=== PATIENT | female | born 1940 | race Caucasian/White ===

== ENCOUNTER 2022-07-02 10:45 | Emergency (ER) | payer MEDICARE, BC, SELFPAY ==
[2022-07-02 10:49] VITALS: BP 155/84; PULSE 64; RESP 18; TEMP 36.5; O2SAT 97; BMI 22.6
--- NOTE | 2022-07-02 11:11 | CRLHL7_ITS ---
For Patients: As a result of the Cures Act, medical imaging exams and procedure reports are released immediately into your electronic medical record. You may view this report before your referring provider. If you have questions, please contact your health care provider. INDICATION: Fall. Laceration. TECHNIQUE: Noncontrast head CT scan. FINDINGS: No abnormal foci of altered attenuation in the brain parenchyma. No midline shift or mass effect. No hydrocephalus. No abnormal extra-axial fluid collections. Right frontal scalp laceration/hematoma. No abnormalities of the paranasal sinuses or skull identified. IMPRESSION: 1. No evidence of acute intracranial abnormalities. 2. Right frontal scalp laceration/hematoma. Dictated by Eyal Nair MD @ 07/02/2022 12:33:49 PM Please note that all CT scans at this facility use dose modulation, iterative reconstruction, and/or weight-based dosing when appropriate to reduce radiation dose to as low as reasonably achievable. Dictated by: Eyal Nair MD @ 07/02/2022 12:33:56 (Electronically Signed)
--- NOTE | 2022-07-02 11:14 | ED_ITS ---
HPI - General Adult General Date Seen: 07/02/22 Chief complaint: Fall/Minor Trauma Stated complaint: Fall Time Seen by Provider: 07/02/22 10:59 Source: patient History of Present Illness HPI narrative: Patient is an 82-year-old woman who had a fall while on her way to [facility]. She has macular degeneration and eyesight is somewhat poor, she thinks she tripped. She denies loss of consciousness. She has a large hematoma and abrasion on her right forehead. She denies significant headache, actually she says she really does not have much in the way of pain. She does not take any blood thinners. Denies any change in her vision. Has not had any vomiting or nausea. Denies neck pain. She denies chest, back, abdominal, or extremity pain. Related Data Home Medications Medication Instructions Recorded Confirmed bupropion HCl 150 mg tablet,12 hr mg PO 07/02/22 sustained-release (Wellbutrin SR) bupropion HCl 75 mg tablet mg PO 07/02/22 lamotrigine 100 mg tablet mg 07/02/22 memantine 5 mg tablet mg 07/02/22 topiramate 100 mg tablet mg 07/02/22 venlafaxine 75 mg capsule,extended mg PO 07/02/22 release 24 hr Allergies Allergy/AdvReac Type Severity Reaction Status Date / Time amoxicillin Allergy Mild Verified 07/02/22 10:54 Review of Systems Status of ROS: Reports: 10 or more systems reviewed and unremarkable except as noted in History and below [facility] Medical History Depression Macular degeneration Surgical History History of appendectomy History of cholecystectomy History of hysterectomy Social History Smoking Status: Never smoker How often do you have a drink containing alcohol: monthly or less AUDIT-C Alcohol total score: 1 Non-prescribed substance use: denies use Exam Narrative: Exam Narrative: Vital signs as noted above. In general, an alert, nontoxic elderly female but. Head: Normocephalic. Large hematoma with associated abrasion on the right forehead. Small superficial jagged laceration associated with the abrasion which does not appear to separate. No other hematomas or abrasions. Eyes: Pupils are equal. Extraocular movements are full. Conjunctivae are normal. ENT: Mucous membranes are moist. Throat is normal. No other facial trauma. Neck: Supple without lymphadenopathy. Nontender to palpation. Heart: Regular rate and rhythm. No murmur or rub. Lungs: Clear bilaterally. No increased work of breathing, crackles or wheezes. Abdomen: Soft and nontender. No organomegaly. Extremities: Well perfused. Atraumatic. Neurologic: Patient is alert and oriented to person and place. Speech is fluent. Face is symmetric. Moves all extremities equally. Affect: Normal. Skin: Warm and dry. Well perfused. Const: Vital Signs, click to edit/add: Vital Signs - 24 hr 07/02/22 10:49 Temperature 97.7 F Pulse Rate [Pulse Oximeter] 64 Respiratory Rate 18 Blood Pressure [Ri ght Upper Arm] 155/84 H Pulse Oximetry 97 Oxygen Delivery Me thod Room Air Documenting provider has reviewed patient's vital signs: yes Course Course Hospital Course: I recommended a head CT given her age and is evidence of early significant trauma to her head. She agreed to that so we will go ahead with that. Head CT by my review did not show any evidence of intracranial hemorrhage. She does have the visualized scalp hematoma. Final radiology report is likewise negative for any intracranial hemorrhage. I cleaned the abrasion,, and did just place little Dermabond over that tear/laceration. She tolerated this well, no immediate complication. She continues to deny any other injury or complaint. Her daughter is here with her and will take her home. Discussed that if she develops any other areas of focal pain that she can return at any time for re- evaluation. Otherwise, Tylenol as needed, continue with ice. Vital Signs Vital signs: Initial Vital Signs Temperature 97.7 F 07/02/22 10:49 Temperature Source Temporal Artery Scan 07/02/22 10:49 Pulse Rate 64 07/02/22 10:49 Respiratory Rate 18 07/02/22 10:49 Blood Pressure 155/84 H 07/02/22 10:49 Blood Pressure Mean 107 07/02/22 10:49 Blood Pressure Position Supine 07/02/22 10:49 Pulse Oximetry 97 07/02/22 10:49 Oxygen Delivery Method 07/02/22 10:49 Vital Signs Temperature 97.7 F 07/02/22 10:49 Pulse Rate 64 07/02/22 10:49 Respiratory Rate 18 07/02/22 10:49 Blood Pressure 155/84 H 07/02/22 10:49 Pulse Oximetry 97 07/02/22 10:49 Oxygen Delivery Method 07/02/22 10:49 Temperature 97.7 F 07/02/22 10:49 Pulse Rate 64 07/02/22 10:49 Respiratory Rate 18 07/02/22 10:49 Blood Pressure 155/84 H 07/02/22 10:49 Pulse Oximetry 97 07/02/22 10:49 Oxygen Delivery Method 07/02/22 10:49 Discharge Plan Discharge Clinical Impression: Hematoma of frontal scalp Patient Disposition: Home, Self-Care Condition: Improved Instructions: Scalp Contusion in Adults (ED) Additional Instructions: Return for severe headache, vomiting, confusion or other worsening. Glue will slough off, but can be removed using acetone in 7-10 days if needed return for signs of infection. Ice, Tylenol as needed. Prescriptions: No Action bupropion HCl [Wellbutrin SR] 150 mg tablet sustained-release 12 hr PO Label Comments: TAKE 2 TABLETS (300 MG) BY MOUTH EVERY MORNING. venlafaxine 75 mg capsule,extended release 24hr PO Label Comments: TAKE 3 CAPSULES (225 MG) BY MOUTH ONCE DAILY WITH A MEAL. bupropion HCl 75 mg tablet PO Label Comments: TAKE 2 TABLETS (150 MG) BY MOUTH DAILY. BASED ON UPDATED ISMP GUIDELINES, DO NOT CRUSH OR CHEW. topiramate 100 mg tablet Label Comments: TAKE 1 TABLET BY MOUTH AT BEDTIME lamotrigine 100 mg tablet Label Comments: TAKE 1 AND 1/2 TABLETS BY MOUTH ONCE DAILY memantine 5 mg tablet Label Comments: TAKE 1 TABLET BY MOUTH EVERY DAY Stand Alone Forms: [facility] Info Instructions
== END 2022-07-02 13:08 | disposition home or self-care (01) ==
PROVIDERS: Emergency Provider Emergency Medicine; PCP Family Medicine
DX: S00.83XA Contusion of other part of head, initial encounter (principal); W01.0XXA Fall on same level from slipping, tripping and stumbling without subsequent striking against object, initial encounter; Y93.01 Activity, walking, marching and hiking; Y92.480 Sidewalk as the place of occurrence of the external cause; Y99.8 Other external cause status
CPT/HCPCS: 70450; 99283; 99284

== ENCOUNTER 2023-02-05 20:53 | Outpatient (CLI) | payer MEDICARE, BC, SELFPAY | END 2023-02-05 20:54 | disposition home or self-care (01) | LOC: AMB 02-09 10:10 | PROVIDERS: PCP Family Medicine; Visit Provider Family Medicine | DX: R53.1 Weakness (principal) | CPT/HCPCS: A0425; A0429 ==

== ENCOUNTER 2023-02-05 21:23 | Inpatient (IN) | payer MEDICARE, BC, SELFPAY ==
[2023-02-05 21:33] VITALS: BP 115/80; PULSE 69; RESP 16; TEMP 36.5; O2SAT 98; BMI 20.1
--- NOTE | 2023-02-05 22:06 | CRLHL7_ITS ---
For Patients: As a result of the Cures Act, medical imaging exams and procedure reports are released immediately into your electronic medical record. You may view this report before your referring provider. If you have questions, please contact your health care provider. INDICATION: Fall and right hip pain TECHNIQUE: Pelvis radiograph, Hip radiograph 3 views right COMPARISON: None FINDINGS: Bone: There is a displaced and mildly impacted fracture of the right femoral neck. Severe diffuse osteopenia is noted. Joint: The hip joints are unremarkable. The visualized sacroiliac joints are unremarkable in appearance. The pubic symphysis is normal in appearance. Soft tissue: Unremarkable. The visualized bowel gas pattern of the pelvis is unremarkable in appearance. No radiopaque foreign bodies are seen. IMPRESSION: 1. There is a displaced and mildly impacted fracture of the right femoral neck. Dictated by Booker Morales MD @ 02/05/2023 11:37:56 PM Dictated by: Booker Morales MD @ 02/05/2023 23:37:59 (Electronically Signed)
[2023-02-05] MEDS: fentaNYL 100 MCG/2 ML inj 50 MCG IVP (22:15)
--- NOTE | 2023-02-05 22:39 | CRLHL7_ITS ---
For Patients: As a result of the Century Cures Act, medical imaging exams and procedure reports are released immediately into your electronic medical record. You may view this report before your referring provider. If you have questions, please contact your health care provider. INDICATION: Fall and right hip chest pain TECHNIQUE: Chest radiograph 1 view COMPARISON: None FINDINGS: Mediastinum: Cardiomegaly is suspected but difficult to evaluate due to the rotation of the mediastinum. 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 Lung: Both lungs are unremarkable in appearance. No sign of pleural effusion seen. No pneumothorax is identified. Bone and Soft tissue: Unremarkable for age. IMPRESSIONS: 1. Cardiomegaly is suspected but difficult to evaluate due to the rotation of the mediastinum. 2. If there is a high clinical index of suspicion for rib injury, dedicated rib series radiographs are recommended. Dictated by Booker Morales MD @ 02/05/2023 11:37:13 PM Dictated by: Booker Morales MD @ 02/05/2023 23:37:18 (Electronically Signed)
[2023-02-05 22:59] VITALS: BP 125/80
[2023-02-05 23:16] LABS: Hemoglobin* 13.2 gm/dL (12.0-16.0)
[2023-02-05 23:27] LABS: Chloride* 106 mmol/L (96-114); Sodium* 139 mmol/L (135-149)
[2023-02-05 23:30] LABS: Blood Urea Nitrogen* 27 mg/dL (7-30); Carbon Dioxide* 28 mmol/L (20-32); Creatinine* 1.3 mg/dL (0.5-1.5); Est. Creatinine Clearance* 34.02; Estimated Glomerular Filt Rate 41 ml/min; Glucose* 115 mg/dL (60-115)
[2023-02-05 23:31] LABS: Calcium* 9.2 mg/dL (8.4-10.6)
--- NOTE | 2023-02-05 23:37 | ED.FALL ---
HPI - Fall General Chief Complaint: Fall/Minor Trauma Stated Complaint: Fall Time Seen by Provider: 02/05/23 21:51 History of Present Illness HPI Narrative: 82-year-old woman presenting to the emergency department with complaint of right hip and right hand pain following a fall. Family was right there hearing the fall. She does live in independent living at [facility]. Has not been able to ambulate since the fall. She did not hit her head. Denies loss of consciousness. No chest pain or shortness of breath. No new neck or back pain. She does not take anticoagulants. Related Data Home Medications Medication Instructions Recorded Confirmed lamotrigine 100 mg tablet 150 mg PO DAILY 07/02/22 02/06/23 memantine 5 mg tablet 5 mg PO BID 07/02/22 02/06/23 topiramate 100 mg tablet 100 mg PO HS 07/02/22 02/06/23 venlafaxine 75 mg capsule,extended 225 mg PO DAILY 07/02/22 02/06/23 release 24 hr bupropion HCl 150 mg tablet,12 hr 300 mg PO QAM 02/06/23 02/06/23 sustained-release Allergies Allergy/AdvReac Type Severity Reaction Status Date / Time amoxicillin Allergy Mild Verified 07/02/22 10:54 Review of Systems Status of ROS: Reports: 6 or more systems reviewed and unremarkable except as noted in History and below [facility] Medical History Ataxia ?R27.0 - Ataxia, unspecified (ICD-10) Depression ?F32.A - Depression, unspecified (ICD-10) Fracture of femoral neck, right ?S72.001A - Fracture of unspecified part of neck of right femur, initial encounter for closed fracture (ICD-10) Macular degeneration ?H35.30 - Unspecified macular degeneration (ICD-10) Microscopic colitis ?K52.839 - Microscopic colitis, unspecified (ICD-10) Osteoporosis ?M81.0 - Age-related osteoporosis without current pathological fracture (ICD-10) Surgical History H/O vein stripping ?Z98.890 - Other specified postprocedural states (ICD-10) History of appendectomy ?Z90.49 - Acquired absence of other specified parts of digestive tract (ICD-10) History of cholecystectomy ?Z90.49 - Acquired absence of other specified parts of digestive tract (ICD-10) History of colonoscopy ?Z98.890 - Other specified postprocedural states (ICD-10) History of hysterectomy ?Z90.710 - Acquired absence of both cervix and uterus (ICD-10) 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) ?Z96.641 - Presence of right artificial hip joint (ICD-10) Hx of tubal ligation ?Z98.51 - Tubal ligation status (ICD-10) Family History Father Alzheimers disease Heart disease Daughter Diabetes Mother Heart disease Social History Narrative: Lives at [facility] [place]. Lives independently. Walks with a cane outside her apartment. Has 5 children. Her daughter, Stephanie, is healthcare power of international tax manager and lives in [place]. Code status is DNR. Highest level of school completed/degree received: some college, no degree Smoking Status: Never smoker Do you use any of these nicotine containing products: None Second hand tobacco smoke exposure: No How often do you have a drink containing alcohol: monthly or less Alcohol type: hard liquor How often do you have six or more drinks on one occasion: Never AUDIT-C Alcohol total score: 1 Non-prescribed substance use: denies use Caffeine: Yes (coffee) service: No Exam Narrative: Exam Narrative: Very pleasant. A little hard of hearing. Calm. Clearly uncomfortable with movement particularly of the right leg. Breathing easily. Head is atraumatic. Neck is supple nontender. Back nontender. Lungs appear to be clear with some clearing lower lung crepitus with deeper inspiratory efforts. Does not appear to have any pain to palpation about the chest wall. Heart appears to be in a regular rhythm. Abdomen is soft and nontender. No pain to palpation about the clavicles or upper extremities though she does have a broad hematoma moderate over the dorsum of the right hand. Does not have discrete bony tenderness and opens and closes her hand with good strength. Lower extremities are without edema. Her right leg is more comfortable it looks like with a little internal rotation. Knee does not appear to be involved. She has some soreness primarily to palpation behind the right greater trochanter. Rotational movement of flexion of the right hip elicits pain also in the area of the abductor insertion. Const: Vital Signs, click to edit/add: Vital Signs - 24 hr 02/05/23 21:33 02/05/23 23:52 02/05/23 22:59 Temperature 97.7 F Pulse Rate [Left P ulse Oximeter] 69 Pulse Rate [Pulse Oximeter] Respiratory Rate 16 Blood Pressure [Le ft Arm] Blood Pressure [Ri ght Upper Arm] 115/80 115/80 125/80 Pulse Oximetry 98 Oxygen Delivery Me thod Room Air 02/06/23 00:20 Temperature 97.9 F Pulse Rate [Left P ulse Oximeter] Pulse Rate [Pulse Oximeter] 81 Respiratory Rate 81 H Blood Pressure [Le ft Arm] 164/87 H Blood Pressure [Ri ght Upper Arm] Pulse Oximetry 94 Oxygen Delivery Me thod Room Air Documenting provider has reviewed patient's vital signs: yes Course Vital Signs Vital signs: Initial Vital Signs Temperature 97.7 F 02/05/23 21:33 Temperature Source Temporal Artery Scan 02/05/23 21:33 Pulse Rate 69 02/05/23 21:33 Respiratory Rate 16 02/05/23 21:33 Blood Pressure 115/80 02/05/23 21:33 Blood Pressure Mean 91 02/05/23 21:33 Blood Pressure Position Sitting 02/05/23 21:33 Pulse Oximetry 98 02/05/23 21:33 Oxygen Delivery Method Room Air 02/05/23 21:33 Vital Signs Temperature 97.7 F 02/05/23 21:33 Pulse Rate 69 02/05/23 21:33 Respiratory Rate 16 02/05/23 21:33 Blood Pressure 115/80 02/05/23 21:33 Pulse Oximetry 98 02/05/23 21:33 Oxygen Delivery Method Room Air 02/05/23 21:33 Temperature 98.1 F 02/06/23 15:58 Pulse Rate 73 02/06/23 15:58 Respiratory Rate 18 02/06/23 15:58 Blood Pressure 127/86 02/06/23 15:58 Pulse Oximetry 94 02/06/23 15:58 Oxygen Delivery Method Nasal Cannula 02/06/23 15:58 Oxygen Flow Rate 0 02/06/23 15:53 MDM - Fall MDM Narrative Medical decision making narrative: I would have most concern of potential hip fracture. The hematoma on the right hand I think is not related to underlying fracture. Have not requested imaging here. Otherwise does not appear to be any imaging. Appears to have been more of a trip and fall type event. Family would really like her to have some pain medication. IV is established and ordered for some fentanyl. This did help on re-evaluation seemed comfortable at rest any movement cause more pain family requesting more was given another dosing. X-ray of the right hip by my read shows a mildly impacted right femoral neck fracture. Chest x-ray in anticipation of surgery is quite rotated. I do not see airspace disease. Some cardiomegaly. Did discuss with our hospitalist anticipating admission however will likely go to overnight coverage. I did contact them for admission as well. Spoke to Orthopedics. Would anticipate her being a later in the day surgery. Medical Records Attestation: I reviewed the patient's medical records. Lab Data Attestation: I reviewed the patient's lab results. Labs: Lab Results 02/05/23 Range/Units 23:02 Hgb 13.2 (12.0-16.0) gm/dL Sodium 139 (135-149) mmol/L Potassium 4.0 (3.6-5.1) mmol/L Chloride 106 (96-114) mmol/L Carbon Dioxide 28 (20-32) mmol/L BUN 27 (7-30) mg/dL Creatinine 1.3 (0.5-1.5) mg/dL Estimated Creat Clear 34.02 Estimated GFR 41 ml/min Glucose 115 (60-115) mg/dL Calcium 9.2 (8.4-10.6) mg/dL SARS-CoV-2 (PCR) Negative SARS-CoV-2 (Negative) Influenza Type A (PCR) Negative PCR FLU A (Negative) Influenza Type B (PCR) Negative PCR FLU B (Negative) Discharge Plan Discharge Clinical Impression: Hip fracture, Hematoma Patient Disposition: Admitted As Inpatient Condition: Stable
[2023-02-05 23:52] VITALS: BP 115/80
[2023-02-05 23:53] LABS: PCR FLU A Negative PCR FLU A (Negative); PCR FLU B Negative PCR FLU B (Negative)
[2023-02-06] VITALS (20 sets, daily range): BP systolic 101–164; BP diastolic 60–88; PULSE 70–95; RESP 16–81; TEMP 36.2–37.1; O2SAT 91–97; BMI 18.8
[2023-02-06 00:05] LABS: SARS PCR* Negative SARS-CoV-2 (Negative)
--- NOTE | 2023-02-06 02:28 | PM.IMCN1 ---
Date of Consult Consult date: 02/06/23 Primary Care Provider: Jesica Skelton MD Consult Narrative Narrative: Savana Winston is a 82 year old female [facility] Medical History Depression Macular degeneration Surgical History History of appendectomy History of cholecystectomy History of hysterectomy Social History Highest level of school completed/degree received: some college, no degree Smoking Status: Never smoker Do you use any of these nicotine containing products: None Second hand tobacco smoke exposure: No How often do you have a drink containing alcohol: monthly or less Alcohol type: hard liquor How often do you have six or more drinks on one occasion: Never AUDIT-C Alcohol total score: 1 Non-prescribed substance use: denies use Caffeine: Yes (coffee) service: No Meds Home Medications and Allergies Home Medications Medication Instructions Recorded Confirmed Type bupropion HCl 150 mg tablet,12 hr mg PO 07/02/22 History sustained-release (Wellbutrin SR) bupropion HCl 75 mg tablet mg PO 07/02/22 History lamotrigine 100 mg tablet mg 07/02/22 History memantine 5 mg tablet mg 07/02/22 History topiramate 100 mg tablet mg 07/02/22 History venlafaxine 75 mg capsule,extended mg PO 07/02/22 History release 24 hr Allergies Allergy/AdvReac Type Severity Reaction Status Date / Time amoxicillin Allergy Mild Verified 07/02/22 10:54 Exam Const: Vital Signs, click to edit/add: Vital Signs - 24 hr 02/05/23 21:33 02/05/23 23:52 02/05/23 22:59 Temperature 97.7 F Pulse Rate [Left P ulse Oximeter] 69 Pulse Rate [Pulse Oximeter] Respiratory Rate 16 Blood Pressure [Le ft Arm] Blood Pressure [Ri ght Upper Arm] 115/80 115/80 125/80 Pulse Oximetry 98 Oxygen Delivery Me thod Room Air 02/06/23 00:20 Temperature 97.9 F Pulse Rate [Left P ulse Oximeter] Pulse Rate [Pulse Oximeter] 81 Respiratory Rate 81 H Blood Pressure [Le ft Arm] 164/87 H Blood Pressure [Ri ght Upper Arm] Pulse Oximetry 94 Oxygen Delivery Me thod Room Air Labs Labs: Short CBC 02/05/23 Range/Units 23:02 Hgb 13.2 (12.0-16.0) gm/dL BMP 02/05/23 23:02 Sodium 139 Potassium 4.0 Chloride 106 Carbon Dioxide 28 BUN 27 Creatinine 1.3 Glucose 115 Calcium 9.2 Assessment and Plan Assessment and plan (1) Hip fracture: Status: Acute Plan [facility] eHospitalist was contacted with request of consultation for patient presenting with right hip fracture after mechanical fall History of present illness: The patient is a 82-year-old woman with a past medical history of depression on multiple medications who had a mechanical fall today as she was trying to open the door to her apartment. She figured that she tried to walk faster than usual and lost her balance and fell heavily on her right side and sustained significant bruising to her right hand and felt a sharp pain in her right hip with inability to move it. She denied any dizziness, palpitations, or sensation of feeling faint. He has no chest pain or shortness of breath. There was no actual loss of consciousness. There is no head strike to the floor or against a wall. She does not take any blood thinners. There is no significant history of coronary artery disease, cerebrovascular disease, diabetes mellitus or kidney disease. She lives in independent living at [facility]. She has not been able to ambulate since the fall. When I saw the patient on video she was relatively comfortable. She said the pain had been well controlled with the 2 injections of fentanyl that she received in the emergency room, but now that she felt that the pain was likely coming back especially when she tried to move the right lower extremity there was some inadvertent movement or changing position. She is planned for or later today for ORIF. Home Medications: see EMR. She has taken all her medications for yesterday and her daughter will bring in the list of medications with doses tomorrow morning Pertinent Medical History: Depression Pertinent Social History: Lives in independent living Exam (performed via interactive video with assistance of bedside nurse): Temperature 97.9 blood pressure 164/87 mmHg heart rate 81 respirations 16 O2 sat 94% on room air General: alert, cooperative, no acute distress HEENT: oral mucosa pink and moist without erythema Lungs: clear to auscultation bilaterally without crackle or wheeze CV: regular rate and rhythm without loud murmur rub or gallop Abd: denies tenderness and does not exhibit signs of pain with palpation done by bedside nurse Ext: Bruising of right foot with internal rotation of right lower extremity. Normal sensation in the right foot with good capillary refill and ability to move her ankle and toes. No hematoma noted in the right hip region extensive hematoma of the right hand; she is however able to move her wrist and fingers without much discomfort. Skin: no rashes, bruises or lesions appreciated on gross visualization of exposed skin Neuro:[alert, oriented x 3. facial muscles grossly intact, moves all extremities without any significant focal deficit appreciated by nurse Pertinent labs and imaging Hemoglobin 13.2 normal serum chemistries with creatinine of 1.3. Glucose 115. COVID and flu negative Chest x-ray does not show any acute cardiopulmonary pathology Hip x-ray shows displaced and mildly impacted fracture of the right femoral neck Assessment and Plan: Patient presented with right femoral neck fracture after mechanical fall. There is no evidence of any neurovascular compromise in the right lower extremity. No history of cardiovascular, cerebrovascular, renal or diabetic disease. She is planned for open reduction and internal fixation later today. -Mid to inpatient for planned surgery -IV acetaminophen 1000 mg IV every 8 hours as needed for mild to moderate pain and morphine 1 mg IV push every 2 hours as needed for more severe pain -Zofran as needed for nausea vomiting -N.p.o. after midnight. D5 LR at 50 mill per hour for maintenance fluids -Orthopedics to follow later today for surgery. We will get an INR in the morning -Daughter will come in the morning with list of medications and doses -We will defer DVT prophylaxis management to orthopedics. We will hold low molecular weight heparin for now as she is planned for surgery later today. Thank you for including Mac Giordano in the patients care. This service is available for further assistance as requested by your care team by calling [phone].
[2023-02-06] MEDS: MORPHINE 2 MG/ML inj 1 MG IVP ×2 (02:57→05:41)
[2023-02-06] MEDS: 5 % DEXTROSE IN LAC RINGER'S 1,000 ML 50 ML IV ×2 (02:57→12:42)
--- NOTE | 2023-02-06 07:06 | PC.NURSE ---
Admission note: Pt admitted from ED @ 0110 via stretcher w/ 3 supportive daughters to room 262 dx: R hip fx. Denied any pain upon admission, admission completed, oriented to unit.
[2023-02-06 07:14] LABS: Prothrombin Time 14.9 Seconds
--- NOTE | 2023-02-06 08:09 | PM.IMHP1 ---
Hospitalist- H&P: HPI History of Present Illness Date Seen: 02/06/23 Chief complaint: Fall Narrative: Savana Winston is a 82-year-old woman with a past medical history of bipolar depression on multiple medications who had a mechanical fall today as she was trying to open the door to her apartment.? She figured that she tried to walk faster than usual and lost her balance and fell heavily on her right side and sustained significant bruising to her right hand and felt a sharp pain in her right hip with inability to move it.? She denied any dizziness, palpitations, or sensation of feeling faint.? He has had no recent illness. She denies any other injury. He has no chest pain or shortness of breath.? There was no actual loss of consciousness.? There is no head strike to the floor or against a wall.? She does not take any blood thinners.? There is no significant history of coronary artery disease, cerebrovascular disease, diabetes mellitus or kidney disease.? She lives in independent living at [facility].? She has not been able to ambulate since the fall. Review of Systems Narrative: No other health concerns today except for her bipolar depression and her hip fracture. No other illness or injury. [facility] Medical History (Updated 02/06/23 @ 08:20 by Chip Kelly MD) Ataxia ?R27.0 - Ataxia, unspecified (ICD-10) Depression ?F32.A - Depression, unspecified (ICD-10) Fracture of femoral neck, right ?S72.001A - Fracture of unspecified part of neck of right femur, initial encounter for closed fracture (ICD-10) Macular degeneration ?H35.30 - Unspecified macular degeneration (ICD-10) Microscopic colitis ?K52.839 - Microscopic colitis, unspecified (ICD-10) Osteoporosis ?M81.0 - Age-related osteoporosis without current pathological fracture (ICD-10) Surgical History (Updated 02/06/23 @ 08:14 by Chip Kelly MD) H/O vein stripping ?Z98.890 - Other specified postprocedural states (ICD-10) History of appendectomy ?Z90.49 - Acquired absence of other specified parts of digestive tract (ICD-10) History of cholecystectomy ?Z90.49 - Acquired absence of other specified parts of digestive tract (ICD-10) History of colonoscopy ?Z98.890 - Other specified postprocedural states (ICD-10) History of hysterectomy ?Z90.710 - Acquired absence of both cervix and uterus (ICD-10) Hx of tubal ligation ?Z98.51 - Tubal ligation status (ICD-10) Family History (Updated 02/06/23 @ 08:15 by Chip Kelly MD) Father Alzheimers disease Heart disease Daughter Diabetes Mother Heart disease Social History (Updated 02/06/23 @ 08:16 by Chip Kelly MD) Narrative: Lives at [facility] [place]. Lives independently. Walks with a cane outside her apartment. Has 5 children. Her daughter, Stephanie, is healthcare power of litigation attorney associate and lives in [place]. Code status is DNR. Highest level of school completed/degree received: some college, no degree Smoking Status: Never smoker Do you use any of these nicotine containing products: None Second hand tobacco smoke exposure: No How often do you have a drink containing alcohol: monthly or less Alcohol type: hard liquor How often do you have six or more drinks on one occasion: Never AUDIT-C Alcohol total score: 1 Non-prescribed substance use: denies use Caffeine: Yes (coffee) service: No Meds Home Medications and Allergies Home Medications Medication Instructions Recorded Confirmed Type bupropion HCl 150 mg tablet,12 hr 300 mg PO DAILY 07/02/22 02/06/23 History sustained-release (Wellbutrin SR) lamotrigine 100 mg tablet 150 mg PO DAILY 07/02/22 02/06/23 History memantine 5 mg tablet 5 mg PO BID 07/02/22 02/06/23 History topiramate 100 mg tablet 100 mg PO HS 07/02/22 02/06/23 History venlafaxine 75 mg capsule,extended 225 mg PO DAILY 07/02/22 02/06/23 History release 24 hr bupropion HCl 150 mg tablet,12 hr 300 mg PO QAM 02/06/23 02/06/23 History sustained-release Allergies Allergy/AdvReac Type Severity Reaction Status Date / Time amoxicillin Allergy Mild Verified 07/02/22 10:54 Exam Narrative: Exam Narrative: She appears mildly uncomfortable lying in bed. She gives her own history with fairly good recall of recent events. Head is without trauma. Eyes normal. Oropharynx normal. Neck is supple without mass or adenopathy. No tenderness. Respirations are clear to auscultation. Cardiovascular: S1, S2, 2/6 systolic ejection murmur, heard best over the right upper sternal border. No gallop or rub. Abdomen: Bowel sounds active. Abdomen is soft without tenderness or mass. External genitalia normal. She has intact pulses and sensation distally in her lower extremities. She moves her feet and ankles well. Const: Vital Signs, click to edit/add: Vital Signs - 24 hr 02/05/23 21:33 02/05/23 23:52 02/05/23 22:59 Temperature 97.7 F Pulse Rate [Left P ulse Oximeter] 69 Pulse Rate [Pulse Oximeter] Respiratory Rate 16 Blood Pressure [Le ft Arm] Blood Pressure [Ri ght Upper Arm] 115/80 115/80 125/80 Pulse Oximetry 98 Oxygen Delivery Me thod Room Air 02/06/23 00:20 02/06/23 03:02 Temperature 97.9 F 98.0 F Pulse Rate [Left P ulse Oximeter] Pulse Rate [Pulse Oximeter] 81 86 Respiratory Rate 81 H 18 Blood Pressure [Le ft Arm] 164/87 H 152/80 H Blood Pressure [Ri ght Upper Arm] Pulse Oximetry 94 97 Oxygen Delivery Me thod Room Air Room Air Documenting provider has reviewed patient's vital signs: yes Hospitalist - H&P: Result Labs Labs: Short CBC 02/05/23 Range/Units 23:02 Hgb 13.2 (12.0-16.0) gm/dL BMP 02/05/23 23:02 Sodium 139 Potassium 4.0 Chloride 106 Carbon Dioxide 28 BUN 27 Creatinine 1.3 Glucose 115 Calcium 9.2 Assessment and Plan Assessment and plan (1) Fracture of femoral neck, right: Problem comment: Plan operative repair today Status: Acute (2) Ataxia: Problem comment: History of trouble with balance and falls. Uses a cane when she leaves her apartment. Has a 4 wheeled walker but does not use it Status: Acute (3) Osteoporosis: Problem comment: History of T6 vertebral compression fracture and now fragility femur fracture. 2019 had bone scan showing osteopenia Status: Acute Plan 82-year-old female fell from standing height fracturing her right femoral neck. Now pending operative repair. Resume multiple medications for depression. Pre-existing history of problems with balance and poor vision will need to be addressed as a part of postoperative rehabilitation. Total time spent today is 60 minutes, 40 minutes in coordination of care and discussing with patient and other providers ongoing evaluation management of hip fracture and depression and rehabilitation
[2023-02-06] MEDS: MORPHINE 2 MG/ML inj IVP ×2 (08:30→10:44)
[2023-02-06] MEDS: LACTATED RINGERS 1000 ML 500 ML IV (10:37)
--- NOTE | 2023-02-06 11:07 | PC.SOCIAL ---
Met with pt.'s two daughters to discuss discharge plans. Pt. lives independently at the [facility]. Pt. will need a SNF for rehab. Daughters prefer placement at [facility], which is [facility] or [facility]. Pt.'s initial information has been sent to assess.
--- NOTE | 2023-02-06 12:45 | CRLHL7_ITS ---
For Patients: As a result of the Cures Act, medical imaging exams and procedure reports are released immediately into your electronic medical record. You may view this report before your referring provider. If you have questions, please contact your health care provider. Indication: BIPOLAR ANTERIOR Approach RIGHT HIP Technique: AP hip fluoroscopic images. Fluoroscopy time 20.5 seconds. Findings/Impression: Hardware from a right bipolar hip arthroplasty is in satisfactory position. Dictated by Franco Landrum MD @ 02/07/2023 12:10:42 PM (Electronically Signed)
--- NOTE | 2023-02-06 13:24 | W.ANESCHARGE ---
Anesthesia Charges Start Date/Time Anesthesia Start Date: 02/06/23 Anesthesia Start Time: 13:09 Stop Date/Time Anesthesia Stop Date: 02/06/23 Anesthesia Stop Time: 15:28 Summary Extremes of Age - Over 70 or under 1: MDA
--- NOTE | 2023-02-06 13:25 | P.NB_ITS ---
Nerve Block Nerve Block Time Seen by Provider: 13:22 Date Seen: 02/06/23 Type of block requested by surgeon for post-operative analgesia: AMANDA/LFCN Side: right Time out performed: Yes Verification of patient name: Yes Verification of date of : Yes Site marking: site marked Name of person performing procedure: Blake Continuous monitoring Was continuous monitoring of O2 sat, B/P, radiation monitor, recorded every 15 minutes?: Yes Procedure Checklist: sterile prep, needles and gloves Ultrasound guided. Images saved: Yes Medications given in 5ml increments after negative aspiration: Ropivicaine %: 0.5 mL: 30 Needle gauge: 20 Decadron (mg): 10 Precedex (mcg): 25 Patient tolerated procedure well: Yes Additional comments: Needle noted below psoas tendon needle noted adjacent to LFCN Block Charges Block Charge (with Pro Fee): Other Periph Nerve Block Use of Ultrasound Machine for Block: Yes- US Guidance/pain block
--- NOTE | 2023-02-06 14:48 | XR_ITS ---
Final Report Patient: CLIFFORD BETANCOURT Facility:?[facility] Patient ID:?[id number] Site Patient ID:?[id number]. Site :?[id number] Study:?XRay Hip Right 2V-02/06/2023 3:03:53 PM Ordering Physician:?Karen Dubose Final Report: Indication: BIPOLAR ANTERIOR Approach RIGHT HIP Technique: AP hip fluoroscopic images. Fluoroscopy time 20.5 seconds. Findings/Impression: Hardware from a right bipolar hip arthroplasty is in satisfactory position. Dictated by Franco Landrum MD @ 02/07/2023 12:10:42 PM (Electronic Signature)
--- NOTE | 2023-02-06 14:51 | P.ORCN_ITS ---
History of Present Illness HPI Date Seen: 02/06/23 Requesting physician: Chip Kelly Chief complaint: Fall Narrative: Dr. Kelly has requested orthopedic consultation for right femoral neck fracture. Patient is an 82-year-old community ambulator who occasionally uses a cane. She fell yesterday, sustaining a displaced femoral neck fracture. She has never injured this hip or had surgery previously. She lives independently in an assisted living situation. Review of Systems Narrative: The patient denies: Fever, night sweats, shaking chills, nausea, vomiting, diarrhea, chest pain, chest pressure, shortness of breath, no rash, no change in hearing or vision, no issues with bleeding or clotting PFSH PFS Medical History Ataxia ?R27.0 - Ataxia, unspecified (ICD-10) Depression ?F32.A - Depression, unspecified (ICD-10) Fracture of femoral neck, right ?S72.001A - Fracture of unspecified part of neck of right femur, initial encounter for closed fracture (ICD-10) Macular degeneration ?H35.30 - Unspecified macular degeneration (ICD-10) Microscopic colitis ?K52.839 - Microscopic colitis, unspecified (ICD-10) Osteoporosis ?M81.0 - Age-related osteoporosis without current pathological fracture (ICD-10) Surgical History H/O vein stripping ?Z98.890 - Other specified postprocedural states (ICD-10) History of appendectomy ?Z90.49 - Acquired absence of other specified parts of digestive tract (ICD- 10) History of cholecystectomy ?Z90.49 - Acquired absence of other specified parts of digestive tract (ICD- 10) History of colonoscopy ?Z98.890 - Other specified postprocedural states (ICD-10) History of hysterectomy ?Z90.710 - Acquired absence of both cervix and uterus (ICD-10) Hx of tubal ligation ?Z98.51 - Tubal ligation status (ICD-10) Family History Father Alzheimers disease Heart disease Daughter Diabetes Mother Heart disease Social History Narrative: Lives at [facility]. Lives independently. Walks with a cane outside her apartment. Has 5 children. Her daughter, Stephanie, is healthcare power of campus ambassador and lives in [place]. Code status is DNR. Highest level of school completed/degree received: some college, no degree Smoking Status: Never smoker Do you use any of these nicotine containing products: None Second hand tobacco smoke exposure: No How often do you have a drink containing alcohol: monthly or less Alcohol type: hard liquor How often do you have six or more drinks on one occasion: Never AUDIT-C Alcohol total score: 1 Non-prescribed substance use: denies use Caffeine: Yes (coffee) service: No Meds Home Medications and Allergies Home Medications Medication Instructions Recorded Confirmed Type lamotrigine 100 mg tablet 150 mg PO DAILY 07/02/22 02/06/23 History memantine 5 mg tablet 5 mg PO BID 07/02/22 02/06/23 History topiramate 100 mg tablet 100 mg PO HS 07/02/22 02/06/23 History venlafaxine 75 mg capsule,extended 225 mg PO DAILY 07/02/22 02/06/23 History release 24 hr bupropion HCl 150 mg tablet,12 hr 300 mg PO QAM 02/06/23 02/06/23 History sustained-release Allergies Allergy/AdvReac Type Severity Reaction Status Date / Time amoxicillin Allergy Mild Verified 07/02/22 10:54 Ortho Exam Narrative Exam Narrative: The patient is alert and oriented x3, in no acute distress, they are able to converse in a normal speaking voice without obvious hearing loss and with nonlabored breathing. The patient is examined supine in the hospital bed. The skin about the right hip is intact, without surgical scars, swelling or ecchymosis. CMS to the right foot is normal. Const Vital Signs, click to edit/add: Vital Signs - 24 hr 02/05/23 21:33 02/05/23 23:52 02/05/23 22:59 Temperature 97.7 F Pulse Rate [Left Pulse Oximeter] 69 Pulse Rate [Pulse Oximeter] Respiratory Rate 16 Blood Pressure [Left Arm] Blood Pressure [Right Upper Arm] 115/80 115/80 125/80 Pulse Oximetry 98 Oxygen Delivery Method Room Air 02/06/23 00:20 02/06/23 03:02 02/06/23 07:00 Temperature 97.9 F 98.0 F Pulse Rate [Left Pulse Oximeter] Pulse Rate [Pulse Oximeter] 81 86 86 Respiratory Rate 81 H 18 18 Blood Pressure [Left Arm] 164/87 H 152/80 H Blood Pressure [Right Upper Arm] Pulse Oximetry 94 97 Oxygen Delivery Method Room Air Room Air Results Labs Labs: Laboratory Results - last 48 hr 02/05/23 02/06/23 23:02 06:33 Hgb 13.2 INR 1.10 Sodium 139 Potassium 4.0 Chloride 106 Carbon Dioxide 28 BUN 27 Creatinine 1.3 Estimated Creat Clear 34.02 Estimated GFR 41 Glucose 115 Calcium 9.2 SARS-CoV-2 (PCR) Negative SARS-CoV-2 Influenza Type A (PCR) Negative PCR FLU A Influenza Type B (PCR) Negative PCR FLU B Diagnostic results Additional Comments: An AP pelvis and cross-table lateral view of the right hip show a displaced femoral neck fracture on the right. There is no pre-existing hip joint arthritis, there is no obvious pathologic lesion. Assessment and Plan Assessment and plan (1) Fracture of femoral neck, right: Problem comment: Plan operative repair today Status: Acute Total time spent: Total time spent is greater than 50% in coordination of care (as documented) at patient's floor/unit and/or counseling patient: (2) Ataxia: Problem comment: History of trouble with balance and falls. Uses a cane when she leaves her apartment. Has a 4 wheeled walker but does not use it Status: Acute Total time spent: Total time spent is greater than 50% in coordination of care (as documented) at patient's floor/unit and/or counseling patient: (3) Osteoporosis: Problem comment: History of T6 vertebral compression fracture and now fragility femur fracture. 2019 had bone scan showing osteopenia Status: Acute Total time spent: Total time spent is greater than 50% in coordination of care (as documented) at patient's floor/unit and/or counseling patient: Plan Assessment: Displaced right femoral neck fracture Plan: I told the patient and her daughter that her injury is best treated with bipolar hemiarthroplasty. She has been medically cleared for surgery, therefore we will take her to the operating room today.
--- NOTE | 2023-02-06 14:54 | PM.ORPRC ---
Procedure Note Date of procedure: 02/06/23 Procedure: PREOPERATIVE DIAGNOSIS: Right hip displaced femoral neck fracture POSTOPERATIVE DIAGNOSIS: Right hip displaced femoral neck fracture NAME OF OPERATION: Right hip cemented bipolar hemiarthroplasty SURGEON: Sedrick Jones MD COMMERCIAL ROOFING ESTIMATOR: Amparo Meneses PA-C IMPLANTS: 1. [place] cemented # 6 standard collared cemented stem 2. 28 + 1.5 cobalt chrome femoral head 3. 48 mm bipolar component ANESTHESIA: Spinal ESTIMATED BLOOD LOSS: 50 cc COMPLICATIONS: None SPECIMENS: None DRAINS: None PREOPERATIVE ANTIBIOTICS: Ancef 1 g INDICATIONS: The patient is a 82-year-old who fell yesterday sustaining a right hip femoral neck fracture. The patient was admitted for workup and management. They have been medically cleared for surgery. Operative intervention was recommended. The risks, benefits and expected outcomes were discussed in detail. These included but were not limited to: Infection, bleeding, injury to blood vessel or nerve, venous thromboembolism. All questions were answered to their satisfaction. Use of an assistant manager bilingual was necessary throughout the case for patient positioning and safety, soft tissue retraction and closure. PROCEDURE: General anesthesia was administered. The patient was placed supine on the [place] table. The assistant manager bilingual made sure the patient was properly positioned. The hip was prepped and draped in the usual sterile fashion. The image intensifier was brought in for a perfect AP pelvis and a perfect double tear drop AP view of each hip which were used for intraoperative templating with our fluoroscopic guide. An oblique incision was made 3 cm distal and 3 cm lateral to the anterior superior iliac spine. The assistant manager bilingual retracted the soft tissues to protect them. Subcutaneous dissection was taken with electrocautery to the superficial fascia. The fascia was divided in line with the incision. Blunt dissection was carried medially to the tensor fascia dae and sartorius interval. Deep dissection was carried with electrocautery. The circumflex vessels were cauterized and divided. The capsule was exposed and then divided in a T-fashion, tagged with #1 Ethibond sutures. Retractors were placed in the joint, held by the assistant manager bilingual. The corkscrew was placed in the femoral head. The neck cut was made in the subcapital region. We made a second neck cut more distal. The napkin ring of bone was removed. The femoral head was removed intact. The limb was placed in 140 degrees of external rotation, maximum extension and adduction. A significant amount of time was spent releasing the capsule to allow us to deliver the femur into the wound and complete the femoral side safely. Retractors were held by the assistant manager bilingual throughout the femoral preparation. The box press operator and canal finder were used. Broaches were used to a stable size. The calcar reamer was used. Trial components were placed. The hip was reduced and was found to be stable with appropriate soft tissue tension. Length and offset had been nicely restored using the image intensifier and our fluoroscopic guide. Trial components were removed. The cement restrictor was placed. The canal was irrigated with pulse lavage then thoroughly dried. Cement was placed with the cement gun and hand pressurized. The # 6 [place] cemented stem was placed in the canal. Excessive cement was removed, the cement was allowed to harden. The 28 mm + 1.5 cobalt chrome femoral head and the 48 mm bipolar component were placed. The hip was reduced and again was found to be stable with appropriate soft tissue tension. Leg lengths appear equal. The assistant manager bilingual irrigated the wound with 3 liters of normal saline via pulse lavage. The assistant manager bilingual repaired the anterior capsule with a #1 Vicryl and our previously placed Ethibond sutures. The assistant manager bilingual closed the fascia over the tensor fascia dae with a #1 PDO Stratafix, subcutaneous tissues with 2-0 Vicryl, skin with a running 3-0 Stratafix and glue. A dry dressing was applied by the assistant manager bilingual. Sponge and needle counts were correct x 2. The patient tolerated the procedure well; there were no apparent complications. They were awakened and extubated in the operating room, sent to the Post-Anesthesia Care Unit in satisfactory condition. PLAN: 1. The patient will be mobilized with physical therapy, weight-bearing as tolerates 2. Xarelto x 5 days then aspirin x 30 days will be used for DVT prophylaxis 3. The patient will be discharged to a snf facility once medically appropriate
--- NOTE | 2023-02-06 15:30 | W.ANESCHARGE ---
Anesthesia Charges Start Date/Time Anesthesia Start Date: 02/06/23 Anesthesia Start Time: 13:09 Stop Date/Time Anesthesia Stop Date: 02/06/23 Anesthesia Stop Time: 15:28 Summary Extremes of Age - Over 70 or under 1: STUDENT COUNSELLOR
[2023-02-06] MEDS: LACTATED RINGERS 1000 ML 1,000 ML 75 ML IV (16:30)
[2023-02-06] MEDS: VENLAFAXINE ER 75 MG CAPSULE PO (17:20)
[2023-02-06] MEDS: lamoTRIgine 25 MG TABLET 50 MG PO (17:20)
[2023-02-06] MEDS: buPROPion HCL 75 MG TABLET 150 MG PO (17:20)
[2023-02-06] MEDS: ACETAMINOPHEN 325 MG TABLET 650 MG PO (18:46)
[2023-02-06] MEDS: CEFAZOLIN 1 GM in 0.9 % SODIUM CHLORIDE Mini-bag 100 ML IVPB (21:01)
[2023-02-06] MEDS: MEMANTINE HCL 10 MG TABLET 5 MG PO (21:15)
[2023-02-06] MEDS: SENNOSIDES 1 TAB TABLET 2 TAB PO (21:17)
[2023-02-06] MEDS: TOPIRAMATE 50 MG TABLET 100 MG PO (21:17)
[2023-02-06] MEDS: 0.9 % SODIUM CHLORIDE 500 ML IV (22:17)
[2023-02-07] MEDS: ACETAMINOPHEN 325 MG TABLET 650 MG PO ×4 (01:08→18:36)
[2023-02-07] MEDS: 0.9 % SODIUM CHLORIDE 500 ML IV (05:59)
[2023-02-07] MEDS: CEFAZOLIN 1 GM in 0.9 % SODIUM CHLORIDE Mini-bag 100 ML IVPB ×2 (06:04→12:00)
[2023-02-07 07:00] VITALS: PULSE 95; RESP 18
[2023-02-07 07:34] LABS: Potassium* 4.2 mmol/L (3.6-5.1); Sodium* 139 mmol/L (135-149)
[2023-02-07 07:37] LABS: Creatinine* 1.1 mg/dL (0.5-1.5); Est. Creatinine Clearance* 36.64; Estimated Glomerular Filt Rate 50 ml/min
[2023-02-07 07:38] LABS: Blood Urea Nitrogen* 26 mg/dL (7-30); Hematocrit 34.9 % (33.0-51.0); Hemoglobin* 11.3 gm/dL (12.0-16.0); Mean Corpuscular HGB Conc 32 gm/dL (32-36); Mean Corpuscular Hemoglobin 30 pg (26-34); Mean Corpuscular Volume 93 fL (80-100); Platelet Count* 103 K/uL (140-440); Red Blood Count 3.74 m/uL (4.00-5.20); White Blood Count* 8.88 K/uL (4.50-11.00)
[2023-02-07 07:51] LABS: Slide Review Reflex No
--- NOTE | 2023-02-07 09:19 | PM.ORPN ---
Subjective Subjective Time Seen by Provider: 08:00 Date Seen: 02/07/23 Principal diagnosis: Status post right femoral neck fracture with bipolar hemiarthroplasty history: Savana is conversive this morning. She has been ambulating with a walker. She plans to go to a snf facility upon discharge. Associate Editor is working on this. Ortho Exam Narrative Exam Narrative: Alert and oriented x3. Patient is in no acute distress. Converses without labored breathing. Hearing is grossly intact. Ambulates with a walker. Examination of the right hip shows the dressing is intact. Mild soft tissue edema about the hip. No erythema or sign of infection. CMS intact right lower extremity. Bilateral calves are soft and nontender Const Vital Signs, click to edit/add: Vital Signs - 24 hr 02/06/23 15:28 02/06/23 15:33 02/06/23 15:43 Temperature 98.0 F Pulse Rate 76 76 73 Pulse Rate [Pulse Oximeter] Respiratory Rate 18 18 18 Blood Pressure 101/60 109/64 117/75 Blood Pressure [Left Arm] Blood Pressure [Right Arm] Pulse Oximetry 91 94 96 Oxygen Delivery Method Room Air Nasal Cannula Oxygen Flow Rate 3 02/06/23 15:38 02/06/23 15:48 02/06/23 15:53 Temperature Pulse Rate 77 70 72 Pulse Rate [Pulse Oximeter] Respiratory Rate 18 18 18 Blood Pressure 113/72 120/71 134/79 Blood Pressure [Left Arm] Blood Pressure [Right Arm] Pulse Oximetry 96 96 95 Oxygen Delivery Method Room Air Oxygen Flow Rate 0 02/06/23 15:58 02/06/23 16:10 02/06/23 16:10 Temperature 98.1 F 97.8 F 97.8 F Pulse Rate 73 73 Pulse Rate [Pulse Oximeter] 73 Respiratory Rate 18 16 18 Blood Pressure 127/86 Blood Pressure [Left Arm] 132/76 Blood Pressure [Right Arm] 132/76 Pulse Oximetry 94 91 Oxygen Delivery Method Nasal Cannula Room Air Room Air Oxygen Flow Rate 91 02/06/23 16:25 02/06/23 16:40 02/06/23 16:55 Temperature 97.7 F 97.7 F 97.6 F Pulse Rate Pulse Rate [Pulse Oximeter] 75 75 74 Respiratory Rate 18 18 18 Blood Pressure Blood Pressure [Left Arm] Blood Pressure [Right Arm] 136/75 130/73 132/73 Pulse Oximetry 94 92 95 Oxygen Delivery Method Room Air Room Air Room Air Oxygen Flow Rate 02/06/23 17:10 02/06/23 17:40 02/06/23 18:10 Temperature 97.2 F L 97.8 F 97.6 F Pulse Rate Pulse Rate [Pulse Oximeter] 76 83 84 Respiratory Rate 18 18 18 Blood Pressure Blood Pressure [Left Arm] Blood Pressure [Right Arm] 128/78 131/88 118/68 Pulse Oximetry 95 95 95 Oxygen Delivery Method Room Air Room Air Room Air Oxygen Flow Rate 02/06/23 16:10 02/06/23 16:10 02/06/23 19:10 Temperature 97.6 F 98.7 F Pulse Rate Pulse Rate [Pulse Oximeter] 84 84 84 Respiratory Rate 18 18 18 Blood Pressure Blood Pressure [Left Arm] 132/76 Blood Pressure [Right Arm] 118/68 105/68 Pulse Oximetry 95 96 Oxygen Delivery Method Room Air Room Air Oxygen Flow Rate 91 02/06/23 20:10 02/06/23 21:10 Temperature 98.7 F 98.7 F Pulse Rate Pulse Rate [Pulse Oximeter] 85 95 Respiratory Rate 18 16 Blood Pressure Blood Pressure [Left Arm] Blood Pressure [Right Arm] 102/68 106/68 Pulse Oximetry 96 95 Oxygen Delivery Method Room Air Room Air Oxygen Flow Rate Assessment and Plan Assessment and plan (1) Fracture of femoral neck, right: Problem details: Date of surgery 02/06/2023 Status: Acute (2) Ataxia: Problem details: History of trouble with balance and falls. Uses a cane when she leaves her apartment. Has a 4 wheeled walker but does not use it Status: Acute (3) Osteoporosis: Problem details: History of T6 vertebral compression fracture and now fragility femur fracture. 2019 had bone scan showing osteopenia Status: Acute Plan Plan for discharge is to a snf facility when she meets discharge criteria. This will likely take another day to finalize. Isabel is moving well. DVT prophylaxis includes Xarelto 10 mg daily for total of 5 days, then aspirin 81 mg twice daily for 30 days, Cuauhtemoc stockings x1 month may remove for 1 hr per day, frequent ambulation Remove dressing 1 week. Observe wound and phone Orthopedics with any questions or concerns Use Ice on operative hip unrestricted. Return to clinic in [address] Jones Minimize narcotic use. Wean off and discontinue soon as possible. Activities as tolerated. No strenuous activity. Attend OT and PT at snf facility
[2023-02-07] MEDS: LACTATED RINGERS 1000 ML 1,000 ML 75 ML IV (09:37)
[2023-02-07] MEDS: VENLAFAXINE ER 75 MG CAPSULE 225 MG PO (09:38)
[2023-02-07] MEDS: SENNOSIDES 1 TAB TABLET 2 TAB PO ×2 (09:41→20:19)
[2023-02-07] MEDS: RIVAROXABAN 10 MG TABLET PO (09:41)
[2023-02-07] MEDS: lamoTRIgine 100 MG TABLET 150 MG PO (09:42)
[2023-02-07] MEDS: MEMANTINE HCL 10 MG TABLET 5 MG PO ×2 (09:43→20:20)
[2023-02-07] MEDS: buPROPion HCL SR 150 MG TAB 300 MG PO (12:04)
--- NOTE | 2023-02-07 14:46 | P.IMPN_ITS ---
Progress Note: A&P Assessment and plan (1) Fracture of femoral neck, right: Problem details: Date of surgery 02/06/2023 Status: Acute (2) Ataxia: Problem details: History of trouble with balance and falls. Uses a cane when she leaves her apartment. Has a 4 wheeled walker but does not use it Status: Acute (3) Osteoporosis: Problem details: History of T6 vertebral compression fracture and now fragility femur fracture. 2019 had bone scan showing osteopenia Status: Acute (4) Mitral regurgitation: Problem details: Asymptomatic. Outpatient follow-up with Cardiology Status: Acute (5) Aortic regurgitation: Problem details: Asymptomatic. Outpatient cardiology follow-up Status: Acute (6) Decreased urine output: Problem details: Likely due to volume depletion. IV and oral fluids today. Status: Acute Plan Continue in hospital for management of pain, therapy, and management of fluids. [facility] 1-2 days. Time Spent With Patient Total time spent: Total time spent today is 40 minutes, 30 minutes in coordination of care discussing with patient, daughter and other providers ongoing management of hip fracture, volume depletion, heart murmurs Subjective Date Seen: 02/07/23 Interval history: 82-year-old female seen following right femoral neck fracture and bipolar arthroplasty performed yesterday by Dr. Jones. She reports today she is generally doing well. Her pain is adequately managed. She reports no shortness of breath or chest pain. She has had a good appetite. She reports she has been eating and drinking okay but nurses report that she has had very poor urine output. She had an echocardiogram yesterday which showed that she had moderate aortic regurgitation and moderate to severe mitral regurgitation Exam Narrative: Exam Narrative: She is alert and pleasant and oriented to her circumstances. Respirations are clear to auscultation. Cardiovascular: S1, S2, 2/6 systolic ejection murmur. Abdomen is soft without tenderness or mass. Hip incision without obvious drainage or erythema. Intact pulses and sensation distally in her lower extremities bilaterally. Const: Vital Signs, click to edit/add: Vital Signs - 24 hr 02/06/23 15:28 02/06/23 15:33 02/06/23 15:43 Temperature 98.0 F Pulse Rate 76 76 73 Pulse Rate [Pulse Oximeter] Respiratory Rate 18 Blood Pressure 101/60 109/64 117/75 Blood Pressure [Le ft Arm] Blood Pressure [Ri ght Arm] Pulse Oximetry 91 94 96 Oxygen Delivery Me thod Room Air Nasal Cannula Oxygen Flow Rate 3 02/06/23 15:38 02/06/23 15:48 02/06/23 15:53 Temperature Pulse Rate 77 70 72 Pulse Rate [Pulse Oximeter] Respiratory Rate 18 18 18 Blood Pressure 113/72 120/71 134/79 Blood Pressure [Le ft Arm] Blood Pressure [Ri ght Arm] Pulse Oximetry 96 96 95 Oxygen Delivery Me thod Room Air Oxygen Flow Rate 0 02/06/23 15:58 02/06/23 16:10 02/06/23 16:10 Temperature 98.1 F 97.8 F 97.8 F Pulse Rate 73 73 Pulse Rate [Pulse Oximeter] 73 Respiratory Rate 18 16 18 Blood Pressure 127/86 Blood Pressure [Le ft Arm] 132/76 Blood Pressure [Ri ght Arm] 132/76 Pulse Oximetry 94 91 Oxygen Delivery Me thod Nasal Cannula Room Air Room Air Oxygen Flow Rate 91 02/06/23 16:25 02/06/23 16:40 02/06/23 16:55 Temperature 97.7 F 97.7 F 97.6 F Pulse Rate Pulse Rate [Pulse Oximeter] 75 75 74 Respiratory Rate 18 18 18 Blood Pressure Blood Pressure [Le ft Arm] Blood Pressure [Ri ght Arm] 136/75 130/73 132/73 Pulse Oximetry 94 92 95 Oxygen Delivery Me thod Room Air Room Air Room Air Oxygen Flow Rate 02/06/23 17:10 02/06/23 17:40 02/06/23 18:10 Temperature 97.2 F L 97.8 F 97.6 F Pulse Rate Pulse Rate [Pulse Oximeter] 76 83 84 Respiratory Rate 18 18 18 Blood Pressure Blood Pressure [Le ft Arm] Blood Pressure [Ri ght Arm] 128/78 131/88 118/68 Pulse Oximetry 95 95 95 Oxygen Delivery Me thod Room Air Room Air Room Air Oxygen Flow Rate 02/06/23 16:10 02/06/23 16:10 02/06/23 19:10 Temperature 97.6 F 98.7 F Pulse Rate Pulse Rate [Pulse Oximeter] 84 84 84 Respiratory Rate 18 18 18 Blood Pressure Blood Pressure [Le ft Arm] 132/76 Blood Pressure [Ri ght Arm] 118/68 105/68 Pulse Oximetry 95 96 Oxygen Delivery Me thod Room Air Room Air Oxygen Flow Rate 91 02/06/23 20:10 02/06/23 21:10 02/07/23 07:00 Temperature 98.7 F 98.7 F Pulse Rate Pulse Rate [Pulse Oximeter] 85 95 95 Respiratory Rate 18 16 18 Blood Pressure Blood Pressure [Le ft Arm] Blood Pressure [Ri ght Arm] 102/68 106/68 Pulse Oximetry 96 95 Oxygen Delivery Me thod Room Air Room Air Oxygen Flow Rate Documenting provider has reviewed patient's vital signs: yes Labs Labs: Laboratory Results - last 24 hr 02/07/23 06:38 WBC 8.88 RBC 3.74 L Hgb 11.3 L Hct 34.9 MCV 93 MCH 30 MCHC 32 Plt Count 103 L Sodium 139 Potassium 4.2 BUN 26 Creatinine 1.1 Estimated Creat Clear 36.64 Estimated GFR 50 Imaging Echo: Attestation: I have reviewed the pertinent imaging results. (Echo shows left ventricular ejection fraction of 40-45%, moderate to severe mitral regurgitation and moderate aortic regurgitation. Recommend Cardiology follow- up)
[2023-02-07 15:00] VITALS: PULSE 95; RESP 18
[2023-02-07 19:00] VITALS: BP 141/81; PULSE 76; RESP 16; TEMP 36.8; O2SAT 97
[2023-02-07] MEDS: TOPIRAMATE 50 MG TABLET 100 MG PO (20:19)
[2023-02-07] MEDS: OXYCODONE 5 MG TABLET PO (20:19)
[2023-02-07 22:18] VITALS: PULSE 73; RESP 16
[2023-02-08] MEDS: OXYCODONE 5 MG TABLET PO ×3 (03:15→11:40)
[2023-02-08] MEDS: ACETAMINOPHEN 325 MG TABLET 650 MG PO ×2 (03:15→08:31)
[2023-02-08 03:21] VITALS: BP 151/74; PULSE 76; RESP 16; TEMP 37.1; O2SAT 96
[2023-02-08 06:50] LABS: Hematocrit 32.9 % (33.0-51.0); Hemoglobin* 10.6 gm/dL (12.0-16.0); Mean Corpuscular HGB Conc 32 gm/dL (32-36); Mean Corpuscular Hemoglobin 30 pg (26-34); Mean Corpuscular Volume 93 fL (80-100); Platelet Count* 96 K/uL (140-440); Red Blood Count 3.53 m/uL (4.00-5.20); White Blood Count* 7.76 K/uL (4.50-11.00)
[2023-02-08 06:57] LABS: Slide Review Reflex No
--- NOTE | 2023-02-08 07:04 | PC.NURSE ---
: SBA with gb and walker, tolerates well. Rating pain 2-5/10, oxy given x 2, offering relief. Pt was unable to get comfortable in bed, pt was able to get some sleep in the chair. Perea patent and draining dark farrukh urine, sm amount blood clots noted in urine, Charge updated, encouraging fluids. Ice pack to right hip, dressing CDI. VSS.
[2023-02-08 07:14] LABS: Potassium* 3.6 mmol/L (3.6-5.1); Sodium* 136 mmol/L (135-149)
[2023-02-08 07:17] LABS: Blood Urea Nitrogen* 25 mg/dL (7-30); Creatinine* 1.2 mg/dL (0.5-1.5); Est. Creatinine Clearance* 33.58; Estimated Glomerular Filt Rate 45 ml/min
[2023-02-08 08:37] VITALS: BP 137/90; PULSE 70; RESP 16; TEMP 36.8; O2SAT 94
[2023-02-08] MEDS: buPROPion HCL SR 150 MG TAB 300 MG PO (08:38)
[2023-02-08] MEDS: SENNOSIDES 1 TAB TABLET 2 TAB PO (08:39)
[2023-02-08] MEDS: VENLAFAXINE ER 75 MG CAPSULE 225 MG PO (08:39)
[2023-02-08] MEDS: MEMANTINE HCL 10 MG TABLET 5 MG PO (08:39)
[2023-02-08] MEDS: RIVAROXABAN 10 MG TABLET PO (08:39)
[2023-02-08] MEDS: lamoTRIgine 100 MG TABLET 150 MG PO (08:49)
--- NOTE | 2023-02-08 09:23 | PM.ORPN ---
Subjective Subjective Time Seen by Provider: 09:23 Date Seen: 02/08/23 Principal diagnosis: Status post right femoral neck fracture with bipolar hemiarthroplasty history: 82-year-old female seen following right femoral neck fracture and bipolar arthroplasty performed yesterday by Dr. Jones. She reports today she is generally doing well. Her pain is adequately managed. She reports no shortness of breath or chest pain. She has had a good appetite. She reports she has been eating and drinking okay but nurses report that she has had very poor urine output. She had an echocardiogram yesterday which showed that she had moderate aortic regurgitation and moderate to severe mitral regurgitation Ortho Exam Narrative Exam Narrative: Alert and oriented x3. Patient is in no acute distress. Converses without labored breathing. Hearing is grossly intact. Ambulates with a walker. Examination of the hip shows the dressing is intact. There is no erythema or warmth or sign of infection. No drainage. Minimal soft tissue edema about the right hip. Calves are soft and nontender. CMS intact right lower extremity. Const Vital Signs, click to edit/add: Vital Signs - 24 hr 02/07/23 15:00 02/07/23 19:00 02/07/23 22:18 Temperature 98.2 F Pulse Rate [Pulse Oximeter] 95 76 73 Respiratory Rate 18 16 16 Blood Pressure [Right Arm] 141/81 H Pulse Oximetry 97 Oxygen Delivery Method Room Air 02/08/23 03:21 02/08/23 08:37 Temperature 98.7 F 98.3 F Pulse Rate [Pulse Oximeter] 76 70 Respiratory Rate 16 16 Blood Pressure [Right Arm] 151/74 H 137/90 H Pulse Oximetry 96 94 Oxygen Delivery Method Room Air Room Air Assessment and Plan Assessment and plan (1) Fracture of femoral neck, right: Problem details: Date of surgery 02/06/2023, bipolar hemiarthroplasty Status: Acute Assessment and Plan: Plan for discharge is today to nursing home facility if they meet discharge criteria. DVT prophylaxis includes Xarelto 10 mg daily for total of 5 days, then aspirin 81 mg twice daily for 30 days, Cuauhtemoc stockings x1 month may remove for 1 hr per day, frequent ambulation Remove dressing 1 week. Observe wound and phone Orthopedics with any questions or concerns Use Ice on operative hip unrestricted. She is tolerating oxycodone. Return to clinic in [address] Jones Minimize narcotic use. Wean off and discontinue soon as possible. Activities as tolerated. No strenuous activity. Attend outpt PT I will send her orthopedic postoperative medications to her pharmacy once her nursing home facility has been determined. (2) Ataxia: Problem details: History of trouble with balance and falls. Uses a cane when she leaves her apartment. Has a 4 wheeled walker but does not use it Status: Acute (3) Osteoporosis: Problem details: History of T6 vertebral compression fracture and now fragility femur fracture. 2019 had bone scan showing osteopenia Status: Acute (4) Mitral regurgitation: Problem details: Asymptomatic. Outpatient follow-up with Cardiology Status: Acute (5) Aortic regurgitation: Problem details: Asymptomatic. Outpatient cardiology follow-up Status: Acute (6) Decreased urine output: Problem details: Likely due to volume depletion. IV and oral fluids today. Status: Acute
[2023-02-08] MEDS: bisacodyL 10 MG SUPP.RECT PR (10:14)
[2023-02-08 10:24] VITALS: BP 127/86; PULSE 73; RESP 16; TEMP 36.8
[2023-02-08 11:03] VITALS: BP 118/76; PULSE 87; RESP 16; TEMP 36.8; O2SAT 97
--- NOTE | 2023-02-08 11:51 | PC.NURSE ---
Patient was able to void and have a small BM around 1130 today. Supp was given at 1015 and catheter was removed at 9am. Missed hat to measure but clear, yellow urine was noted in the toilet. Patient was given 5mg of Oxycodone prior to DC in anticipation of needing it on the ride over. Report was given to [facility] staff. Faxed orders over as well.
--- NOTE | 2023-02-08 11:56 | PC.NURSE ---
End of shift note: Patient has been up with assist of 1 and a walker and gaitbelt. Worked with PT/OT today. Washed up with OT. Incision dressing is clean dry and intact. Edema and discoloration in bilateral feet (chronic). Pedal pulses palpated in both feet. TEDs applied on bilateral legs. Ice to incision. Pain is controlled with PO medications. Catheter was removed at 9am and tip was intact. Supp given at 1015 with results. Patient was able to void at that time but missed hat. Clear yellow urine was observed in toilet. Denies nausea. Tolerates a regular diet. Able to feed self. Has macular degeneration but manages well. Family very supportive. Plans to go to [address] [place] [address] today via non emergent transport around noon. PIV removed and catheter intact. All belongings sent with patients daughter. Lung sounds clear. Vital signs within normal limits. Alert and oriented X3.
--- NOTE | 2023-02-08 12:14 | PC.NURSE ---
EMS called and said they would not be able to transport until at least 1400 due to multiple traumas. Called [facility] and they need patient there by 1300 or patient will have to wait to be admitted tomorrow. Relayed this information on to the daughter. She stated that she was comfortable bringing her mother by private vehicle to [facility] given the situation we are in. She does not want to delay her another day getting to rehab. She understands that the person helping her when she gets to [facility] will provide a wheelchair but will not be able to help her out of the car. Patients daughter, alejandra, is an OT by [employer] and stated she will be able to help the patient. Address provided to patients daughter and packet of information also provided to give to nursing staff. Patient left in wheelchair and had no further questions at this time.
--- NOTE | 2023-02-08 16:25 | P.DS_ITS ---
DS: Providers Provider Date Seen: 02/08/23 Date of admission: 02/06/23 02:11 Primary care physician: Jesica Skelton MD Admitting Clinician: Gladys Santos MD Attending Physician on discharge: Nolan Kelly MD Date of Discharge: 02/08/23 DS: Diagnosis Discharge Diagnosis (1) Fracture of femoral neck, right: Status: Acute Problem details: Date of surgery 02/06/2023, bipolar hemiarthroplasty. No complications. (2) Ataxia: Status: Acute Problem details: History of trouble with balance and falls. Uses a cane when she leaves her apartment. Has a 4 wheeled walker at home but does not use it. Revisit this after rehab stay. (3) Osteoporosis: Status: Acute Problem details: History of T6 vertebral compression fracture and now fragility femur fracture. 2019 had bone scan showing osteopenia. Consider bisphosphonate, calcium, vitamin-D (4) Mitral regurgitation: Status: Acute Problem details: Asymptomatic. Outpatient follow-up with Cardiology after rehab stay. Discussed with daughter. (5) Aortic regurgitation: Status: Acute Problem details: Asymptomatic. Outpatient cardiology follow-up (6) Decreased urine output: Status: Acute Problem details: Likely due to volume depletion secondary to blood loss from hip fracture. Responding to oral and IV fluids. DS: Summary Hospital Course Hospital Course: 82-year-old female who lives independently at home fell sustaining a right femoral neck fracture. She was hospitalized and underwent right hip bipolar arthroplasty surgery on February 06, performed by Dr. Jones. There were no operative complications. Postoperatively she has done well except did have decreased urine output presumably secondary to blood loss from her fracture. She responded well to IV fluids and oral fluids. Her hemoglobin dropped from 13.2 preoperatively to 10.6. She did well with therapy and had good pain control. Due to her heart murmur she had an echocardiogram which showed moderate to severe mitral regurgitation and moderate aortic regurgitation. As she appears to be asymptomatic at this time is recommended she get outpatient cardiology follow-up in the next couple months after she is more ambulatory. Status at Discharge Functional status at discharge: uses cane/walker Overall status at discharge: patient is progressing back to baseline Time Spent with Patient Time attestation: Total time spent providing and/or coordinating discharge services: Time spent: Greater than 30 minutes Exam Narrative: Exam Narrative: She is alert and pleasant appears in no distress. Respirations are clear to auscultation. Cardiovascular: S1, S2, 2/6 systolic murmur. Hip incision is without erythema or drainage. She has some bruising and swelling around her right hip. Distal pulses sensation and strength in both feet normal Const: Vital Signs, click to edit/add: Vital Signs - 24 hr 02/07/23 19:00 02/07/23 22:18 02/08/23 03:21 Temperature 98.2 F 98.7 F Pulse Rate Pulse Rate [Pulse Oximeter] 76 73 76 Pulse Rate [Right Dorsalis Pedis] Respiratory Rate 16 16 16 Blood Pressure Blood Pressure [Ri ght Arm] 141/81 H 151/74 H Pulse Oximetry 97 96 Oxygen Delivery Me thod Room Air Room Air 02/08/23 08:37 02/08/23 10:24 02/08/23 11:03 Temperature 98.3 F 98.3 F 98.3 F Pulse Rate 73 Pulse Rate [Pulse Oximeter] 70 Pulse Rate [Right Dorsalis Pedis] 87 Respiratory Rate 16 16 16 Blood Pressure 127/86 Blood Pressure [Ri ght Arm] 137/90 H 118/76 Pulse Oximetry 94 97 Oxygen Delivery Me thod Room Air Room Air Documenting provider has reviewed patient's vital signs: yes DS: Data Data Completed and Pending Labs on day of discharge: Labs from last 24 hours 02/08/23 06:03 WBC 7.76 RBC 3.53 L Hgb 10.6 L Hct 32.9 L MCV 93 MCH 30 MCHC 32 Plt Count 96 L Sodium 136 Potassium 3.6 BUN 25 Creatinine 1.2 Estimated Creat Clear 33.58 Estimated GFR 45 Discharge Plan Discharge Disposition: [facility] Date of Admission: 02/06/23 02:11 Attending Provider on Discharge: Chip Kelly Primary Care Provider: Jesica Skelton Condition: Stable Anticipated Discharge Date/Time: 02/08/23 11:00 Discharge Medications: New sennosides [Senna Lax] 8.6 mg Tablet 17.2 mg PO BID Qty: 100 0RF Xarelto 10 mg Tablet 10 mg PO DAILY Qty: 30 0RF oxycodone 5 mg tablet 5 mg PO Q4H PRN (Reason: pain) Qty: 30 0RF Rx Instructions: Take 2.5 mg (0.5 tab) for moderate pain and 5 mg for severe pain acetaminophen 325 mg Tablet 650 mg PO Q6H Qty: 100 0RF Continued venlafaxine 75 mg capsule,extended release 24hr 225 mg PO DAILY Patient Comments: TAKE 3 CAPSULES (225 MG) BY MOUTH ONCE DAILY WITH A MEAL. topiramate 100 mg tablet 100 mg PO HS Patient Comments: TAKE 1 TABLET BY MOUTH AT BEDTIME lamotrigine 100 mg tablet 150 mg PO DAILY Patient Comments: TAKE 1 AND 1/2 TABLETS BY MOUTH ONCE DAILY memantine 5 mg tablet 5 mg PO BID bupropion HCl 150 mg tablet sustained-release 12 hr 300 mg PO QAM Discharge Orders: Discharge Order (Routine); Ordered 02/08/23 Ordered By: Chip Kelly Activity Level: Activity as Tolerated and No strenuous activity Discharge Diet: Regular Follow Up Appointments: [facility] [Outside] (Patient is being discharged to [facility].) Jesica Skelton MD [Primary Care Provider] - Admit to: SNF Discharge Potential: Good Length of Stay: <30 days Can use facility standing orders?: Yes Code Status: DNR TEDs: Bilateral Knee Rehab Potential: Good Therapy: Physical Therapy and Occupational Therapy Therapy Orders: Evaluate and Treat Therapy Orders Additional Information: OT and PT daily at [facility] Oxygen: No Urinary Catheter: No
== END 2023-02-08 12:35 | DRG 522 ==
LOC: ED 23:00 → MEDSURG 02-06 01:09
PROVIDERS: Internal Medicine; Orthopaedic Surgery; Admitting Provider Family Medicine; Emergency Provider Family Medicine; PCP Family Medicine; Visit Provider Family Medicine
PROC: 0SRR019 Replacement of Right Hip Joint, Femoral Surface with Metal Synthetic Substitute, Cemented, Open Approach (ICD-10-PCS; CPT 27130; principal; 2023-02-06 13:30)
DX: S72.001A Fracture of unspecified part of neck of right femur, initial encounter for closed fracture (principal); W19.XXXA Unspecified fall, initial encounter; Y92.009 Unspecified place in unspecified non-institutional (private) residence as the place of occurrence of the external cause; M81.0 Age-related osteoporosis without current pathological fracture; R27.0 Ataxia, unspecified; Z87.310 Personal history of (healed) osteoporosis fracture; I08.0 Rheumatic disorders of both mitral and aortic valves; F32.A Depression, unspecified; H35.30 Unspecified macular degeneration
CPT/HCPCS: 01210; 36415; 71045; 73501; 73502; 76000; 76942; 80048; 82565; 84132; 84295; 84520; 85018; 85027; 85610; 87631; 93306; 97110; 97116; 97162; 97165; 97530; 97535; 99100; 99284; 99285; A9270; C1776; J0690; J1100; J2250; J2270; J2370; J2405; J2704; J2795; J3010; J3490; J7120; S0106

== ENCOUNTER 2023-06-30 11:15 | Inpatient (IN) | payer MEDICARE, BC, SELFPAY ==
[2023-06-30] VITALS (9 sets, daily range): BP systolic 145–154; BP diastolic 84–104; PULSE 83–93; RESP 18–24; TEMP 36.4–37.1; O2SAT 85–99; BMI 19.7
--- NOTE | 2023-06-30 11:33 | ED.NURSE ---
sats 93-94% on RA when walking to room
--- NOTE | 2023-06-30 11:40 | CRLHL7_ITS ---
For Patients: As a result of the Century Cures Act, medical imaging exams and procedure reports are released immediately into your electronic medical record. You may view this report before your referring provider. If you have questions, please contact your health care provider. Indication: Shortness of breath Comparison: Single view chest February 05, 2023 Technique: Single AP view chest Findings: There are diffusely increased interstitial markings. There is likely left basilar pleural effusion with adjacent compressive atelectasis versus infiltrates. Airspace opacification of the right greater than left upper lobes is appreciated. The cardiac silhouette is mildly prominent with a tortuous thoracic aorta. There are old left greater than right rib deformities. Impression: Diffusely increased interstitial markings consistent with likely pulmonary edema with left basilar pleural effusion with adjacent compressive atelectasis versus infiltrates. Dictated by Michael Huber MD @ 06/30/2023 1:01:15 PM (Electronically Signed)
--- NOTE | 2023-06-30 11:44 | ED_ITS ---
HPI - General Adult General Date Seen: 06/30/23 Chief complaint: Shortness of Breath/Dyspnea Stated complaint: Covid+, short of breath, fatigue Time Seen by Provider: 06/30/23 11:29 Source: patient and family Mode of arrival: ambulatory Limitations: no limitations History of Present Illness HPI narrative: Patient is an 83-year-old woman who has been symptomatic for about 7 or 8 days initially with cough and some body aches, COVID positive as of 5 days ago. She lives in an assisted living facility, here with a daughter in-law who says she has been having some difficulty slightly, had a fall with a hip fracture in January, has been more frail, then with COVID has been having more difficulty with some weakness, shortness of breath increasing over the past couple of days. They did note that her oxygen saturations with activity today dip down into the upper 80s. Apparently had an echo in January and had a decreased ejection fraction at that time, review of her records shows that it was 40-45%. The patient says she does remember Cardiology at that time saying just to manage with it as best as able for as long as she could. She does not take a diuretic. They note that she has had increased swelling in her ankles for the past few days, and they just started wearing compression stockings today. She has not had a fever that they are aware of. Related Data Home Medications Medication Instructions Recorded Confirmed lamotrigine 100 mg tablet 150 mg PO DAILY 07/02/22 06/30/23 topiramate 100 mg tablet 100 mg PO HS 07/02/22 06/30/23 venlafaxine 75 mg capsule,extended 225 mg PO DAILY 07/02/22 06/30/23 release 24 hr bupropion HCl 150 mg tablet,12 hr 300 mg PO QAM 02/06/23 06/30/23 sustained-release memantine 10 mg tablet 10 mg PO BID 04/04/23 06/30/23 Allergies Allergy/AdvReac Type Severity Reaction Status Date / Time amoxicillin Allergy Mild Verified 04/04/23 14:24 Review of Systems Status of ROS: Reports: 10 or more systems reviewed and unremarkable except as noted in History and below [facility] Medical History Decreased urine output ?R34 - Anuria and oliguria (ICD-10) Aortic regurgitation ?I35.1 - Nonrheumatic aortic (valve) insufficiency (ICD-10) Mitral regurgitation ?I34.0 - Nonrheumatic mitral (valve) insufficiency (ICD-10) Fracture of femoral neck, right ?S72.001A - Fracture of unspecified part of neck of right femur, initial encounter for closed fracture (ICD-10) Ataxia ?R27.0 - Ataxia, unspecified (ICD-10) Microscopic colitis ?K52.839 - Microscopic colitis, unspecified (ICD-10) Osteoporosis ?M81.0 - Age-related osteoporosis without current pathological fracture (ICD- 10) Hematoma ?T14.8XXA - Other injury of unspecified body region, initial encounter (ICD- 10) Depression ?F32.A - Depression, unspecified (ICD-10) Macular degeneration ?H35.30 - Unspecified macular degeneration (ICD-10) Surgical History 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) ?Z96.641 - Presence of right artificial hip joint (ICD-10) H/O vein stripping ?Z98.890 - Other specified postprocedural states (ICD-10) History of colonoscopy ?Z98.890 - Other specified postprocedural states (ICD-10) Hx of tubal ligation ?Z98.51 - Tubal ligation status (ICD-10) History of hysterectomy ?Z90.710 - Acquired absence of both cervix and uterus (ICD-10) History of cholecystectomy ?Z90.49 - Acquired absence of other specified parts of digestive tract (ICD- 10) History of appendectomy ?Z90.49 - Acquired absence of other specified parts of digestive tract (ICD- 10) Family History Father Alzheimers disease Heart disease Daughter Diabetes Mother Heart disease Social History Narrative: Lives at [facility] [place] [facility] [place]. Lives independently. Walks with a cane outside her apartment. Has 5 children. Her daughter, Stephanie, is healthcare power of document review attorney and lives in [place]. Code status is DNR. Highest level of school completed/degree received: some college, no degree Smoking Status: Never smoker Do you use any of these nicotine containing products: None Second hand tobacco smoke exposure: No How often do you have a drink containing alcohol: monthly or less Alcohol type: hard liquor How often do you have six or more drinks on one occasion: Never AUDIT-C Alcohol total score: 1 Non-prescribed substance use: denies use Caffeine: Yes (coffee) service: No Exam Narrative: Exam Narrative: Vital signs as noted above. In general, an alert, nontoxic elderly woman, somewhat tachypneic. Head: Normocephalic, atraumatic. Eyes: Pupils are equal reactive. Extraocular movements are full. Conjunctivae are normal. ENT: Mucous membranes are moist. Neck: Supple without lymphadenopathy. No stridor. Heart: Regular rate and rhythm. Systolic murmur at the apex. Lungs: Coarse crackles throughout both lung guerrero. Tachypneic but no significant increased work of breathing. Abdomen: Soft and nontender. No organomegaly. Extremities: Compression stockings on both legs, bilateral edema. No calf tenderness. Neurologic: Patient is alert and oriented to person and place. Speech is fluent. Face is symmetric. Moves all extremities equally. Affect: Normal. Skin: Warm and dry. Well perfused. Const: Vital Signs, click to edit/add: Vital Signs - 24 hr 06/30/23 11:22 06/30/23 13:32 06/30/23 13:33 Temperature 97.6 F Pulse Rate 92 93 Pulse Rate [Right Pulse Oximeter] 92 Respiratory Rate 18 Blood Pressure 148/104 H Blood Pressure [Ri ght Upper Arm] 145/84 H Pulse Oximetry 95 94 85 L Oxygen Delivery Me thod Room Air Nasal Cannula Nasal Cannula Oxygen Flow Rate 3 3 06/30/23 14:00 06/30/23 14:01 Temperature Pulse Rate 88 86 Pulse Rate [Right Pulse Oximeter] Respiratory Rate Blood Pressure 154/101 H Blood Pressure [Ri ght Upper Arm] Pulse Oximetry 96 97 Oxygen Delivery Me thod Nasal Cannula Nasal Cannula Oxygen Flow Rate 3 3 Documenting provider has reviewed patient's vital signs: yes Course Course ED Course: Following initial evaluation, patient had an EKG which had quite a bit of artifact in the lateral leads such that these are not really interpretable. She appears to be in a sinus rhythm. I do not see clear evidence of ischemia. Her initial troponin was 0.08, BNP was markedly elevated at 37,000 seven thousand I suspect the troponin is related to some strain but will recheck. Chest x-ray shows likely pulmonary edema, final radiology read as as follows:Impression: Diffusely increased interstitial markings consistent with likely pulmonary edema with left basilar pleural effusion with adjacent compressive atelectasis versus infiltrates. Her white blood cell count normal at 7.25. Hemoglobin is 11.8. She is afebrile, suspicion for bacterial pneumonia is relatively low. D-dimer slightly elevated for age at 1.09. Renal function is normal at 1. Will discuss with hospitalist whether she would like to get a CT of the chest. Other electrolytes are normal, BUN mildly elevated at 35. Lactate is normal at 1.2. LFTs notable for mild elevations of transaminases, alk-phos is 221. CRP elevated at 6.1. Repeat troponin is pending. I ordered Lasix 20 mg given that she is naive to diuretics. Vital Signs Vital signs: Initial Vital Signs Temperature 97.6 F 06/30/23 11:22 Temperature Source Temporal Artery Scan 06/30/23 11:22 Pulse Rate 92 06/30/23 11:22 Respiratory Rate 18 06/30/23 11:22 Blood Pressure 145/84 H 06/30/23 11:22 Blood Pressure Mean 104 06/30/23 11:22 Blood Pressure Position Sitting 06/30/23 11:22 Pulse Oximetry 95 06/30/23 11:22 Oxygen Delivery Method Room Air 06/30/23 11:22 Vital Signs Temperature 97.6 F 06/30/23 11:22 Pulse Rate 92 06/30/23 11:22 Respiratory Rate 18 06/30/23 11:22 Blood Pressure 145/84 H 06/30/23 11:22 Pulse Oximetry 95 06/30/23 11:22 Oxygen Delivery Method Room Air 06/30/23 11:22 Temperature 97.6 F 06/30/23 11:22 Pulse Rate 86 06/30/23 14:01 Respiratory Rate 18 06/30/23 11:22 Blood Pressure 154/101 H 06/30/23 14:01 Pulse Oximetry 97 06/30/23 14:01 Oxygen Delivery Method Nasal Cannula 06/30/23 14:01 Oxygen Flow Rate 3 06/30/23 14:01 Medical Decision Making Lab Data Labs: Lab Results 06/30/23 06/30/23 Range/Units 11:55 13:42 WBC 7.25 (4.50-11.00) K/uL RBC 4.06 (4.00-5.20) m/uL Hgb 11.8 L (12.0-16.0) gm/dL Hct 37.4 (33.0-51.0) % MCV 92 (80-100) fL MCH 29 (26-34) pg MCHC 32 (32-36) gm/dL RDW Coeff of Doron 17.9 H (11.5-15.5) % Plt Count 113 L (140-440) K/uL Neut % (Auto) 86.3 H (42.0-72.0) % Lymph % (Auto) 4.7 L (20-44) % Williams % (Auto) 8.4 (0.0-11.0) % Eos % (Auto) 0.0 (0.0-7.0) % Baso % (Auto) 0.3 (0.0-3.0) % Neut # (Auto) 6.30 (1.7-7.0) K/uL Lymph # (Auto) 0.30 L (0.90-2.90) K/uL Williams # (Auto) 0.60 (0.00-0.90) K/UL Eos # (Auto) 0.00 (0.00-0.50) K/uL Baso # (Auto) 0.02 (0.00-0.30) K/uL Abs Immat Gran (auto) 0.02 (0.00-0.30) K/uL Imm/Tot Granulo (auto) 0.3 % Diff Slide Review Cancelled D-Dimer Quant (PE/DVT) 1.09 H (0.00-0.50) ug/ml Sodium 140 (135-149) mmol/L Potassium 3.8 (3.6-5.1) mmol/L Chloride 109 (96-114) mmol/L Carbon Dioxide 24 (20-32) mmol/L Anion Gap 7 (7-15) mEq/L BUN 35 H (7-30) mg/dL Creatinine 1.0 (0.5-1.5) mg/dL Estimated Creat Clear 42.55 Estimated GFR 56 ml/min Glucose 112 (60-115) mg/dL Lactate 1.2 (0.5-1.9) mmol/L Calcium 9.0 (8.4-10.6) mg/dL Total Bilirubin 0.6 (0.1-1.5) mg/dL Direct Bilirubin 0.1 (0.0-0.5) mg/dL AST 55 H (12-35) U/L ALT 53 H (4-35) U/L Alkaline Phosphatase 221 H (40-150) U/L C-Reactive Protein 6.1 H (0.5-1.0) mg/dL NT-Pro-B Natriuret Pep 95352 pg/mL Total Protein 6.2 (6.0-8.3) g/dL Albumin 3.3 (3.3-5.0) g/dL POC Troponin I 0.08 H 0.06 H (0.01-0.04) ng/ml Discharge Plan Discharge Patient Disposition: Admitted As Observation
[2023-06-30 12:07] LABS: Lactate Sepsis w/Reflex* 1.2 mmol/L (0.5-1.9)
[2023-06-30 12:08] LABS: Basophils Absolute Auto 0.02 K/uL (0.00-0.30); Basophils Percent Auto 0.3 % (0.0-3.0); Hematocrit 37.4 % (33.0-51.0); Hemoglobin* 11.8 gm/dL (12.0-16.0); Immature Granulocytes Abs Auto 0.02 K/uL (0.00-0.30); Immature Granulocytes Pct Auto 0.3 %; Lymphocytes Percent Auto 4.7 % (20-44); Mean Corpuscular HGB Conc 32 gm/dL (32-36); Mean Corpuscular Hemoglobin 29 pg (26-34); Mean Corpuscular Volume 92 fL (80-100); Monocytes Percent Auto 8.4 % (0.0-11.0); Neutrophils Percent Auto 86.3 % (42.0-72.0); Platelet Count* 113 K/uL (140-440); RDW Coefficient of Variation % 17.9 % (11.5-15.5); Red Blood Count 4.06 m/uL (4.00-5.20); White Blood Count* 7.25 K/uL (4.50-11.00)
[2023-06-30 12:12] LABS: Slide Review Reflex Yes
[2023-06-30 12:25] LABS: Albumin* 3.3 g/dL (3.3-5.0); Chloride* 109 mmol/L (96-114)
[2023-06-30 12:26] LABS: Potassium* 3.8 mmol/L (3.6-5.1); Sodium* 140 mmol/L (135-149)
[2023-06-30 12:28] LABS: Anion Gap 7 mEq/L (7-15); Aspartate Amino Transferase* 55 U/L (12-35); Bilirubin Direct* 0.1 mg/dL (0.0-0.5); Bilirubin Total* 0.6 mg/dL (0.1-1.5); Carbon Dioxide* 24 mmol/L (20-32); Est. Creatinine Clearance* 42.55; Estimated Glomerular Filt Rate 56 ml/min; Total Protein* 6.2 g/dL (6.0-8.3)
[2023-06-30 12:29] LABS: Alanine Aminotransferase* 53 U/L (4-35); Alkaline Phosphatase* 221 U/L (40-150); Blood Urea Nitrogen* 35 mg/dL (7-30); Glucose* 112 mg/dL (60-115)
[2023-06-30 12:30] LABS: D Dimer Quantitative* 1.09 ug/ml (0.00-0.50)
[2023-06-30 12:31] LABS: C Reactive Protein* 6.1 mg/dL (0.5-1.0)
[2023-06-30 12:32] LABS: Troponin, Point-of-Care* 0.08 ng/ml (0.01-0.04)
[2023-06-30 12:54] LABS: NT Pro B Type NatriureticPept* 37000 pg/mL
[2023-06-30] MEDS: FUROSEMIDE 10 MG/ML inj 20 MG IVP ×2 (13:47→17:39)
--- NOTE | 2023-06-30 14:02 | ED.NURSE ---
Report to [facility], patient accepted to 278.
--- NOTE | 2023-06-30 14:10 | CRLHL7_ITS ---
For Patients: As a result of the Cures Act, medical imaging exams and procedure reports are released immediately into your electronic medical record. You may view this report before your referring provider. If you have questions, please contact your health care provider. Indication: Melgoza virus, CHF, elevated D-dimer Technique: Volumetric multidetector CT images of the chest were obtained after the administration of IV contrast. 95 cc Isovue 370 low osmolar intravenous contrast Comparison: None available. Findings: The thoracic inlet and thyroid gland are unremarkable. The thoracic aorta is demonstrates minimal atherosclerotic calcification. There is no central filling defect to suggest pulmonary embolism. There are prominent mediastinal and hilar lymph nodes. There is moderate central bronchial thickening with minimal mucoid impaction in the lower lobe bronchi. There is right greater than left basilar pleural effusions with adjacent compressive atelectasis versus infiltrates. There are extensive interstitial and ground-glass opacities seen within the peripheral upper lobes likely representing sequela of pulmonary edema and/or developing atypical infiltrates. There is dense consolidation within the left lower lobe likely representing infiltrate. There is no evidence of pulmonary mass or suspicious pulmonary nodule. The partially visualized upper abdominal viscera are within normal limits. There are multiple old left greater than right rib deformities. The thoracic vertebral body heights are grossly maintained with chronic compression fractures of the T3, T6, T9, and T12 levels. Impression : Right greater than left basilar pleural effusions with adjacent compressive atelectasis and/or infiltrates with extensive interstitial and ground-glass opacities throughout the bilateral hemithoraces consistent with history of viral infectious changes. No evidence of pulmonary embolus. Please note that all CT scans at this facility use dose modulation, iterative reconstruction, and/or weight-based dosing when appropriate to reduce radiation dose to as low as reasonably achievable. Dictated by Michael Huber MD @ 06/30/2023 3:43:50 PM (Electronically Signed)
[2023-06-30 14:11] LABS: Troponin, Point-of-Care* 0.06 ng/ml (0.01-0.04)
[2023-06-30 14:12] LABS: SARS Antigen* POSITIVE (Negative)
--- NOTE | 2023-06-30 17:14 | P.IMHP_ITS ---
Hospitalist- H&P: HPI History of Present Illness Time Seen by Provider: 15:15 Date Seen: 06/30/23 Chief complaint: Covid+, short of breath, fatigue Narrative: Savana Winston is a 83 year old woman who lives in the independent apartments at [facility], who presents today with increasing weakness and shortness of breath. She has had a fairly rapid physical decline since January of this year when she fell and sustained a right femoral neck fracture. She was hospitalized for this at [facility] and underwent a right hip bipolar arthroplasty on 02/06/[address] Baca, with no operative complications. During the course of that hospitalization it was apparent that she had a loud murmur for which she underwent a transthoracic echocardiogram on 02/06/2023. Following is a summary of the findings of the echocardiogram: Normal LV size, mildly increased wall thickness, mildly reduced global systolic function with an estimated ejection fraction of 40-45%. Severe enlarged left atrium. Aortic sclerosis without stenosis but with moderate regurgitation. Mitral valve sclerosis with moderate to severe mitral regurgitation, with an eccentric jet directed anterior medially suggesting posterior mitral valve leaflet dysfunction. Also found to have [id number] tricuspid valve regurgitation. Prior to discharge from the hospital patient was given recommendation to seek cardiology consultation in the near future. Unfortunately this still has not occurred to date. On 05/13/2023 patient sustained a ground fall after which she was evaluated at the [facility] Emergency Department and was found to have a acute right- sided subdural hematoma, left superior and inferior pubic rami fractures, left greater trochanter fracture, and nondisplaced left sacral fracture. Was transferred to [facility] where she was treated conservatively. Discharge from the hospital on 05/16/2023 and received transitional care services for a short period of time thereafter until such time as she return to her independent living apartment at the [facility]. For the past 7-10 days patient has had a dry hacky cough, myalgias and arthralgias, and become increasingly weak and dyspneic. Patient has noted increasing dependent edema during this time as well. Began wearing compression stockings today. Reportedly 5 days ago she tested positive for COVID. She was not started on antiviral medications. Her dyspnea seemed to progress as well as her weakness. Denies dyspnea at rest. Denies paroxysmal nocturnal dyspnea orthopnea. Notes dyspnea with exertion. Room air oxygen saturation was obtained at the [facility] today and was in the mid to upper 80s. Denies fevers, rigors, diaphoresis. Denies chest heaviness, pressure, tightness, or pain. Denies syncope or near-syncope. Denies nausea or vomiting. Denies focal motor neurologic deficits. Review of Systems Status of ROS: Reports: 10 or more systems reviewed and unremarkable except as noted in History and below Narrative: Denies dysuria, urgency, frequency, hematuria. Denies diarrhea or constipation. Denies any wounds on her skin. Acknowledges ongoing concern about depression. She tells me that every 4 months she has a bad bout of depression. Denies suicide or homicide ideations at this time. Readily acknowledges that she does not want to have any resuscitation in the event of cardiopulmonary demise. She wonders if she wants any help for her current presentation even. She has 1 if she ought not to simply focus on keeping comfortable and not treating her underlying conditions medically even though we could. She is emphatic that she does not want any procedures or interventions whatsoever. DNR DNI resuscitation status. Delegates her children as her power of immigration attorney for health should that be required. [facility] Medical History Moderate protein-calorie malnutrition ?E44.0 - Moderate protein-calorie malnutrition (ICD-10) Essential hypertension ?I10 - Essential (primary) hypertension (ICD-10) Rectal incontinence ?R15.9 - Full incontinence of feces (ICD-10) Anxiety disorder ?F41.9 - Anxiety disorder, unspecified (ICD-10) Unspecified dementia, mild, without behavioral disturbance, psychotic disturbance, mood disturbance, and anxiety ?F03.A0 - Unspecified dementia, mild, without behavioral disturbance, psychotic disturbance, mood disturbance, and anxiety (ICD-10) Physical deconditioning ?R53.81 - Other malaise (ICD-10) Chronic kidney disease (CKD) ?N18.9 - Chronic kidney disease, unspecified (ICD-10) Anemia ?D64.9 - Anemia, unspecified (ICD-10) Subdural hematoma, post-traumatic ?S06.5XAA - Traumatic subdural hemorrhage with loss of consciousness status unknown, initial encounter (ICD-10) Nondisplaced fracture of greater trochanter of left femur ?S72.115A - Nondisplaced fracture of greater trochanter of left femur, initial encounter for closed fracture (ICD-10) Closed fracture of left pubis with routine healing ?S32.502D - Unspecified fracture of left pubis, subsequent encounter for fracture with routine healing (ICD-10) Decreased urine output ?R34 - Anuria and oliguria (ICD-10) Aortic regurgitation ?I35.1 - Nonrheumatic aortic (valve) insufficiency (ICD-10) Mitral regurgitation ?I34.0 - Nonrheumatic mitral (valve) insufficiency (ICD-10) Fracture of femoral neck, right ?S72.001A - Fracture of unspecified part of neck of right femur, initial encounter for closed fracture (ICD-10) Ataxia ?R27.0 - Ataxia, unspecified (ICD-10) Microscopic colitis ?K52.839 - Microscopic colitis, unspecified (ICD-10) Osteoporosis ?M81.0 - Age-related osteoporosis without current pathological fracture (ICD- 10) Hematoma ?T14.8XXA - Other injury of unspecified body region, initial encounter (ICD- 10) Depression ?F32.A - Depression, unspecified (ICD-10) Macular degeneration ?H35.30 - Unspecified macular degeneration (ICD-10) Surgical History 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) ?Z96.641 - Presence of right artificial hip joint (ICD-10) H/O vein stripping ?Z98.890 - Other specified postprocedural states (ICD-10) History of colonoscopy ?Z98.890 - Other specified postprocedural states (ICD-10) Hx of tubal ligation ?Z98.51 - Tubal ligation status (ICD-10) History of hysterectomy ?Z90.710 - Acquired absence of both cervix and uterus (ICD-10) History of cholecystectomy ?Z90.49 - Acquired absence of other specified parts of digestive tract (ICD- 10) History of appendectomy ?Z90.49 - Acquired absence of other specified parts of digestive tract (ICD- 10) Family History Father Alzheimers disease Heart disease Daughter Diabetes Mother Heart disease Social History Narrative: Lives at [facility] [place] [facility] [place]. Lives independently. Walks with a cane outside her apartment. Has 5 children. Her daughter, Stephanie, is healthcare power of immigration attorney and lives in [place]. Code status is DNR. What is your current living situation?: I presently have a place to live Problems where you live: no known problems Problems where you live details: NA In the past 12 months, utilities in danger of being shut off: no In the past 12 mos, have been you worried that your food would run out before you had money to buy more?: never true In the past 12 mos, the food you bought just didn't last and you didn't have money to buy more?: never true Highest level of school completed/degree received: some college, no degree Smoking Status: Never smoker Do you use any of these nicotine containing products: None Second hand tobacco smoke exposure: No How often do you have a drink containing alcohol: monthly or less Alcohol type: hard liquor How many standard drinks containing alcohol do you have on a typical day: 1 or 2 How often do you have six or more drinks on one occasion: Never AUDIT-C Alcohol total score: 1 Non-prescribed substance use: denies use Caffeine: Yes How often does anyone, including family, friends and others, physically hurt you : never How often does anyone, including family, friends and others, insult or talk down to you: never How often does anyone, including family, friends and others, threaten you with harm: never How often does anyone, including family, friends and others, scream or curse at you: never service: No Meds Home Medications and Allergies Home Medications Medication Instructions Recorded Confirmed Type lamotrigine 100 mg tablet 150 mg PO DAILY 07/02/22 06/30/23 History venlafaxine 75 mg capsule,extended 225 mg PO DAILY 07/02/22 06/30/23 History release 24 hr bupropion HCl 150 mg tablet,12 hr 300 mg PO QAM 02/06/23 06/30/23 History sustained-release memantine 10 mg tablet 10 mg PO BID 04/04/23 06/30/23 History aspirin 81 mg tablet,delayed 81 mg PO BIDWM 06/30/23 06/30/23 History release (Enteric Coated Aspirin) raloxifene 60 mg tablet 60 mg PO DAILY 06/30/23 06/30/23 History sennosides 8.6 mg-docusate sodium 2 tab PO BID 06/30/23 06/30/23 History 50 mg tablet (Senexon-S) topiramate 25 mg tablet 75 mg PO QPM 06/30/23 06/30/23 History Allergies Allergy/AdvReac Type Severity Reaction Status Date / Time amoxicillin Allergy Mild Verified 04/04/23 14:24 Exam Narrative: Exam Narrative: Examine the patient in her hospital room with her 3 children and [id number] present in the room. Respiratory rate at rest is 24. Patient states she is not dyspneic any longer at rest. Is receiving oxygen supplementation via nasal cannula at 2 liters/gary te. Appears comfortable and in no acute distress. Vision and hearing are both decreased but adequate. She can see sufficiently and can hear adequately. If I speak to softly she is not able to hear me. Alert and oriented to self, place, time, and in part to situation. Friendly, articulate, cooperative. Appears thin and cachectic. Prominent bony structures in face, neck, dorsum, upper extremities. Muscle atrophy of upper and lower extremities. External auditory canals and tympanic membranes are normal. Midline nasal septum. Dry buccal mucosa. Dentition in fair repair. Neck is supple. Midline trachea. Neck is thin. Sitting upright she has prominent jugular venous pulsations. Has hepatojugular reflux from base of neck to jaw, again in the sitting upright position. Pitting edema in feet and pretibial area up to level of knee, not up to the thigh. Inspiratory and expiratory rales bilaterally. No wheezing or rhonchi. Kyphotic posture. No CVA tenderness. Heart tones with regular rhythm, normal S1-S2. Loud murmur across the entire precordium, grade 5/6. No rubs. PMI mildly laterally displaced. Abdomen with active bowel sounds, soft, nontender. No focal motor neurologic deficits. Increased dyspnea with minimal exertion. Const: Vital Signs, click to edit/add: Vital Signs - 24 hr 06/30/23 11:22 06/30/23 13:32 06/30/23 13:33 Temperature 97.6 F Pulse Rate 92 93 Pulse Rate [Pulse Oximeter] Pulse Rate [Right Pulse Oximeter] 92 Respiratory Rate 18 Blood Pressure 148/104 H Blood Pressure [Le ft Arm] Blood Pressure [Ri ght Upper Arm] 145/84 H Pulse Oximetry 95 94 85 L Oxygen Delivery Me thod Room Air Nasal Cannula Nasal Cannula Oxygen Flow Rate 3 3 06/30/23 14:00 06/30/23 14:01 06/30/23 15:13 Temperature 98.8 F Pulse Rate 88 86 Pulse Rate [Pulse Oximeter] 86 Pulse Rate [Right Pulse Oximeter] Respiratory Rate 24 Blood Pressure 154/101 H Blood Pressure [Le ft Arm] 151/97 H Blood Pressure [Ri ght Upper Arm] Pulse Oximetry 96 97 95 Oxygen Delivery Me thod Nasal Cannula Nasal Cannula Nasal Cannula Oxygen Flow Rate 3 3 4 06/30/23 15:13 Temperature Pulse Rate Pulse Rate [Pulse Oximeter] Pulse Rate [Right Pulse Oximeter] Respiratory Rate 24 Blood Pressure Blood Pressure [Le ft Arm] Blood Pressure [Ri ght Upper Arm] Pulse Oximetry 95 Oxygen Delivery Me thod Nasal Cannula Oxygen Flow Rate 4 Documenting provider has reviewed patient's vital signs: yes Hospitalist - H&P: Result Labs Labs: Short CBC 06/30/23 Range/Units 11:55 WBC 7.25 (4.50-11.00) K/uL Hgb 11.8 L (12.0-16.0) gm/dL Hct 37.4 (33.0-51.0) % Plt Count 113 L (140-440) K/uL BMP 06/30/23 11:55 Sodium 140 Potassium 3.8 Chloride 109 Carbon Dioxide 24 BUN 35 H Creatinine 1.0 Glucose 112 Calcium 9.0 Liver Function 06/30/23 Range/Units 11:55 Total Bilirubin 0.6 (0.1-1.5) mg/dL Direct Bilirubin 0.1 (0.0-0.5) mg/dL AST 55 H (12-35) U/L ALT 53 H (4-35) U/L Alkaline Phosphatase 221 H (40-150) U/L Albumin 3.3 (3.3-5.0) g/dL ECG ECG interpretation date: 06/30/23 ECG interpretation time: 15:15 Pacemaker model: Poor tracing. Normal sinus rhythm. Imaging Chest x-ray: Attestation: I have reviewed the pertinent imaging results. Radiologist's impression: Impression: Diffusely increased interstitial markings consistent with likely pulmonary edema with left basilar pleural effusion with adjacent compressive atelectasis versus infiltrates. CT scan - chest: Attestation: I have reviewed the pertinent imaging results. Radiologist's impression: Impression : Right greater than left basilar pleural effusions with adjacent compressive atelectasis and/or infiltrates with extensive interstitial and ground-glass opacities throughout the bilateral hemithoraces consistent with history of viral infectious changes. No evidence of pulmonary embolus. 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 Severe enlarged left atrium. Aortic sclerosis without stenosis but with moderate regurgitation. Mitral valve sclerosis with moderate to severe mitral regurgitation, with an eccentric jet directed anterior medially suggesting posterior mitral valve leaflet dysfunction. Also found to have [id number] tricuspid valve regurgitation. Status: Acute (4) Aortic regurgitation: Problem comment: Transthoracic echocardiogram 02/06/2023: Normal LV size, mildly increased wall thickness, mildly reduced global systolic function with an estimated ejection fraction of 40-45%. Severe enlarged left atrium. Aortic sclerosis without stenosis but with moderate regurgitation. Mitral valve sclerosis with moderate to severe mitral regurgitation, with an eccentric jet directed anterior medially suggesting posterior mitral valve leaflet dysfunction. Also found to have mi [id number] tricuspid valve regurgitation. Status: Acute (5) COVID-19: Status: Acute (6) Moderate protein-calorie malnutrition: Status: Acute (7) Unspecified dementia, mild, without behavioral disturbance, psychotic disturbance, mood disturbance, and anxiety: Status: Acute (8) Myocardial strain: Problem comment: Monitor on telemetry, repeat troponin I, repeat EKG. Status: Acute Plan 1. Reviewed impression with patient, 2 daughters, son, and [id number]. 2. Patient uncertain if she wants to receive much support her intervention for her current presentation. She is agreeable to allow is to provide her with oxygen supplementation and diuresis for now. 3. Patient will discuss the possibility of allowing us to introduce beta helena therapy and angiotensin receptor helena or LESTER-inhibitor therapy at this time. I did review this with the patient and her family. They will discuss and decide. She is adamant about not wanting any interventional treatments including surgeries. 4. Recheck echocardiogram for prognostic purposes. 5. Not a candidate for initiating COVID antiviral treatment at this time. Will hold off on dexamethasone for now. 6. Continue with other supportive cares. 7. Initiated discussion about possible hospice cares. 8. Answered patient's questions and family questions to their satisfaction. 9. They are agreeable with above stated plans and recommendations at this time.
[2023-06-30] MEDS: ASPIRIN 81 MG TABLET EC PO (17:36)
[2023-06-30] MEDS: POTASSIUM CHLORIDE 10 MEQ CAPSULE ER 40 MEQ PO (17:36)
[2023-06-30 18:04] LABS: Troponin I* 0.06 ng/mL (0.01-0.04)
--- NOTE | 2023-06-30 19:14 | PC.NURSE ---
Nursing Care Hours: [id number] Pt this shift arrived from ED. Alert and oriented, calm and cooperative. SOB with exertion, on 4L NC. Bilat LS coarse crackles, productive cough. Bilat LE pitting edema. Abrasion with bruise to R elbow from bumping it per pt. Frequent trips to bathroom after Lasix therapy. Color my med given for Lasix and discussed precautions. Ambulates with 1 assist and walker and gait belt. Eating and drinking sufficiently.
[2023-06-30] MEDS: TOPIRAMATE 25 MG TABLET 75 MG PO (21:06)
[2023-06-30] MEDS: SENNOSIDES/DOCUSATE TABLET 2 TAB PO (21:06)
[2023-06-30] MEDS: MEMANTINE HCL 10 MG TABLET PO (21:06)
[2023-06-30] MEDS: SODIUM CHLORIDE 0.9 % (FLUSH) 10 ML SYRINGE 5 ML IVF (21:14)
--- NOTE | 2023-06-30 22:51 | PC.NURSE ---
Shift note: Oxygen was reduced from 4L to 2L and pt able to maintain O2 level 96% from initial 99%. A1, walker and GB for ambulation. Appears more dyspneic with activity. Family has been bedside with patient throughout the shift.No cough and fever observed. Swallow pill whole with water. Pt is hard of hearing, using hearing aid, and poor vision r/t macular degeneration. SCD applied and due treatment given.
[2023-07-01] VITALS (10 sets, daily range): BP systolic 137–154; BP diastolic 76–97; PULSE 77–88; RESP 20–24; TEMP 36.7–36.9; O2SAT 90–99
[2023-07-01 06:38] LABS: HCO3 VBG 26 mmol/L (21-28); Hematocrit 35.5 % (33.0-51.0); Hemoglobin* 11.2 gm/dL (12.0-16.0); Lactate* 1.1 mmol/L (0.5-1.9); Mean Corpuscular HGB Conc 32 gm/dL (32-36); Mean Corpuscular Hemoglobin 29 pg (26-34); Mean Corpuscular Volume 92 fL (80-100); PCO2 VBG 45 mmHG (40-50); PO2 VBG 35.8 mmHG (25-47); Platelet Count* 101 K/uL (140-440); Red Blood Count 3.87 m/uL (4.00-5.20); White Blood Count* 6.84 K/uL (4.50-11.00); pH VBG 7.368 (7.32-7.43)
--- NOTE | 2023-07-01 06:54 | PC.NURSE ---
23-07: Rested well, up to void q2h, only down 0.5 lbs, remains on 2lpm of oxygen.
[2023-07-01 06:55] LABS: Slide Review Reflex No
[2023-07-01 07:47] LABS: Anion Gap 6 mEq/L (7-15); Carbon Dioxide* 25 mmol/L (20-32); Chloride* 109 mmol/L (96-114); Potassium* 3.8 mmol/L (3.6-5.1); Sodium* 140 mmol/L (135-149)
[2023-07-01 07:48] LABS: Alanine Aminotransferase* 43 U/L (4-35); Albumin* 2.9 g/dL (3.3-5.0); Alkaline Phosphatase* 185 U/L (40-150); Aspartate Amino Transferase* 40 U/L (12-35); Bilirubin Total* 0.5 mg/dL (0.1-1.5); Blood Urea Nitrogen* 31 mg/dL (7-30); Calcium* 8.6 mg/dL (8.4-10.6); Est. Creatinine Clearance* 42.46; Estimated Glomerular Filt Rate 56 ml/min; Glucose* 88 mg/dL (60-115); Magnesium* 1.9 mg/dL (1.5-2.6); Phosphorus* 3.6 mg/dL (2.5-4.5); Total Protein* 5.6 g/dL (6.0-8.3)
[2023-07-01 07:49] LABS: Troponin I* 0.06 ng/mL (0.01-0.04)
[2023-07-01] MEDS: FUROSEMIDE 10 MG/ML inj 20 MG IVP (09:15)
[2023-07-01] MEDS: ASPIRIN 81 MG TABLET EC PO ×2 (09:15→18:25)
[2023-07-01] MEDS: SENNOSIDES/DOCUSATE TABLET 2 TAB PO ×2 (09:16→20:48)
[2023-07-01] MEDS: MEMANTINE HCL 10 MG TABLET PO ×2 (09:16→20:48)
[2023-07-01] MEDS: POTASSIUM CHLORIDE 10 MEQ CAPSULE ER 20 MEQ PO ×2 (09:19→18:25)
[2023-07-01] MEDS: lamoTRIgine 100 MG TABLET 150 MG PO (09:20)
[2023-07-01] MEDS: ENOXAPARIN 30 MG/0.3ML INJ SUBCUT (09:21)
[2023-07-01] MEDS: SODIUM CHLORIDE 0.9 % (FLUSH) 10 ML SYRINGE 5 ML IVF ×2 (09:53→20:48)
--- NOTE | 2023-07-01 11:21 | P.IMPN_ITS ---
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 Severe enlarged left atrium. Aortic sclerosis without stenosis but with moderate regurgitation. Mitral valve sclerosis with moderate to severe mitral regurgitation, with an eccentric jet directed anterior medially suggesting posterior mitral valve leaflet dysfunction. Also found to have [id number] tricuspid valve regurgitation. Status: Acute (4) Aortic regurgitation: Problem details: Transthoracic echocardiogram 02/06/2023: Normal LV size, mildly increased wall thickness, mildly reduced global systolic function with an estimated ejection fraction of 40-45%. Severe enlarged left atrium. Aortic sclerosis without stenosis but with moderate regurgitation. Mitral valve sclerosis with moderate to severe mitral regurgitation, with an eccentric jet directed anterior medially suggesting posterior mitral valve leaflet dysfunction. Also found to have [id number] tricuspid valve regurgitation. Status: Acute (5) COVID-19: Status: Acute (6) Moderate protein-calorie malnutrition: Status: Acute (7) Unspecified dementia, mild, without behavioral disturbance, psychotic disturbance, mood disturbance, and anxiety: Status: Acute (8) Myocardial strain: Problem details: Monitor on telemetry, repeat trop is stable. Status: Acute Subjective Date Seen: 07/01/23 Interval history: Daily Progress Note - Hospital Medicine Day #: 2 CC: Acute systolic heart failure, [place] heart classification 3-4 OVERNIGHT UPDATES FROM STAFF & MED, LAB, IMAGING UPDATES quiet night. pt feels sob but maybe a little improved. she falls asleep while we are talking. RN: 23-07: Rested well, up to void q2h, only down 0.5 lbs, remains on 2lpm of oxygen. Blood pressure 154/88. Pulse 85. 2 L per nasal cannula oxygen keeps sats in the mid 90s. Weight is down 0.2 kilos. CBC is stable. Platelet count down to 101. This is not new. Blood gas is within normal limits. Electrolytes, creatinine, lactate phosphorus magnesium are all normal. Troponin is stable but slightly elevated at 0.06. LFTs are down trending. BNP was 7[address]33 yesterday. CTA from admission reviewed Right greater than left basilar pleural effusions with adjacent compressive atelectasis and/or infiltrates with extensive interstitial and ground-glass opacities throughout the bilateral hemithoraces consistent with history of viral infectious changes. No evidence of pulmonary embolus. Echo read still pending. Provisional read: LVEF down to 20% with severe mitral valve regurg. Objective: tired, falls asleep while we are chatting Vitals: see above Lungs: crackles; poor inspiration Cardiac: regular rthym, blowing systolic murmur. Disposition/Potential discharge - unclear what patient and family will choose. we outlined: A: medical management; home with services or correction. B: hospice/comfort C: transfer or close outpatient f/u with cardiology. Today I spent 50minutes seeing the patient, reviewing Expanse and EPIC notes/diagnostics, discussing the care plan with our care time that includes social work, PT/OT, pharmacy, RT, correction and documenting my impressions and plan in the medical record. Prolonged Physician Services [id number] ([facility]) in conjunction with: [id number] (subsequent visit; 50 mins + 15 mins prolonged services = 65 mins total) ACP first 30 mins [id number] I went over options for care during this current hospitalization and explained the difference hospice care and how this happends. I described the likelihood of returning to previous functioning and what the options are going forward for care. Exam Const: Vital Signs, click to edit/add: Vital Signs - 24 hr 06/30/23 11:22 06/30/23 13:32 06/30/23 13:33 Temperature 97.6 F Pulse Rate 92 93 Pulse Rate [Pulse Oximeter] Pulse Rate [Right Pulse Oximeter] 92 Respiratory Rate 18 Blood Pressure 148/104 H Blood Pressure [Le ft Arm] Blood Pressure [Ri ght Upper Arm] 145/84 H Pulse Oximetry 95 94 85 L Oxygen Delivery Me thod Room Air Nasal Cannula Nasal Cannula Oxygen Flow Rate 3 3 06/30/23 14:00 06/30/23 14:01 06/30/23 15:13 Temperature 98.8 F Pulse Rate 88 86 Pulse Rate [Pulse Oximeter] 86 Pulse Rate [Right Pulse Oximeter] Respiratory Rate 24 Blood Pressure 154/101 H Blood Pressure [Le ft Arm] 151/97 H Blood Pressure [Ri ght Upper Arm] Pulse Oximetry 96 97 95 Oxygen Delivery Me thod Nasal Cannula Nasal Cannula Nasal Cannula Oxygen Flow Rate 3 3 4 06/30/23 15:13 06/30/23 16:15 06/30/23 19:00 Temperature 98.5 F Pulse Rate 90 Pulse Rate [Pulse Oximeter] 83 Pulse Rate [Right Pulse Oximeter] Respiratory Rate 24 24 Blood Pressure Blood Pressure [Le ft Arm] 149/94 H Blood Pressure [Ri ght Upper Arm] Pulse Oximetry 95 99 Oxygen Delivery Me thod Nasal Cannula Nasal Cannula Oxygen Flow Rate 4 4 06/30/23 23:45 07/01/23 02:16 07/01/23 02:16 Temperature Pulse Rate 85 Pulse Rate [Pulse Oximeter] 83 Pulse Rate [Right Pulse Oximeter] Respiratory Rate 24 24 Blood Pressure Blood Pressure [Le ft Arm] Blood Pressure [Ri ght Upper Arm] Pulse Oximetry 99 Oxygen Delivery Me thod Nasal Cannula Oxygen Flow Rate 4 07/01/23 02:17 07/01/23 06:04 07/01/23 07:00 Temperature 98.5 F 98.4 F Pulse Rate Pulse Rate [Pulse Oximeter] 84 78 78 Pulse Rate [Right Pulse Oximeter] Respiratory Rate 24 22 22 Blood Pressure Blood Pressure [Le ft Arm] 137/76 151/83 H Blood Pressure [Ri ght Upper Arm] Pulse Oximetry 92 92 Oxygen Delivery Me thod Nasal Cannula OxyM ask Nasal Cannula OxyM ask Oxygen Flow Rate 2 2 07/01/23 07:00 07/01/23 07:00 Temperature 98.3 F Pulse Rate Pulse Rate [Pulse Oximeter] 85 Pulse Rate [Right Pulse Oximeter] Respiratory Rate 20 Blood Pressure Blood Pressure [Le ft Arm] 154/88 H Blood Pressure [Ri ght Upper Arm] Pulse Oximetry 96 96 Oxygen Delivery Me thod Room Air Nasal Cannula Oxygen Flow Rate 2 Labs Labs: Laboratory Results - last 24 hr 06/30/23 06/30/23 07/01/23 11:55 13:42 06:15 WBC 7.25 6.84 RBC 4.06 3.87 L Hgb 11.8 L 11.2 L Hct 37.4 35.5 MCV 92 92 MCH 29 29 MCHC 32 32 RDW Coeff of Doron 17.9 H Plt Count 113 L 101 L Neut % (Auto) 86.3 H Lymph % (Auto) 4.7 L [place] % (Auto) 8.4 Eos % (Auto) 0.0 Baso % (Auto) 0.3 Neut # (Auto) 6.30 Lymph # (Auto) 0.30 L [place] # (Auto) 0.60 Eos # (Auto) 0.00 Baso # (Auto) 0.02 Abs Immat Gran (auto) 0.02 Imm/Tot Granulo (auto) 0.3 Diff Slide Review Cancelled D-Dimer Quant (PE/DVT) 1.09 H VBG pH 7.368 VBG pCO2 45 VBG pO2 35.8 VBG HCO3 26 Sodium 140 140 Potassium 3.8 3.8 Chloride 109 109 Carbon Dioxide 24 25 Anion Gap 7 6 L BUN 35 H 31 H Creatinine 1.0 1.0 Estimated Creat Clear 42.55 42.46 Estimated GFR 56 56 Glucose 112 88 Lactate 1.2 1.1 Calcium 9.0 8.6 Phosphorus 3.6 Magnesium 1.9 Total Bilirubin 0.6 0.5 Direct Bilirubin 0.1 AST 55 H 40 H ALT 53 H 43 H Alkaline Phosphatase 221 H 185 H Troponin I 0.06 H* 0.06 H* C-Reactive Protein 6.1 H 7.0 H NT-Pro-B Natriuret Pep 89894 Total Protein 6.2 5.6 L Albumin 3.3 2.9 L TSH 1.580 SARS-CoV-2 Ag (Rapid) POSITIVE Lab Acknowledgement Test Added POC Troponin I 0.08 H 0.06 H
[2023-07-01 12:16] LABS: NT Pro B Type NatriureticPept* 37200 pg/mL
[2023-07-01] MEDS: buPROPion HCL SR 150 MG TAB 300 MG PO (13:02)
--- NOTE | 2023-07-01 14:14 | REH.OT ---
OT: Orders received, chart reviewed, spoke with RN and MD. Per MD, therapies to hold today as family arriving to discuss goals of care and whether will pursue hospice.
--- NOTE | 2023-07-01 15:06 | PC.NURSE ---
Patient resting in bed with family present at bedside. Pt denies pain. States that her SOB is better today. However still displays SOB with exertion. Up with assist of 1, walker and gait belt. Pt breaths through her mouth while she sleeps - oxymask being used at this time.
[2023-07-01] MEDS: TOPIRAMATE 25 MG TABLET 75 MG PO (18:25)
[2023-07-01] MEDS: VENLAFAXINE ER 75 MG CAPSULE 225 MG PO (20:48)
--- NOTE | 2023-07-01 21:37 | PC.NURSE ---
Pt alert and oriented. Pt pleasant and cooperative. Pt had no complaints of pain. Pt had family at bedside for all of shift. ? ?
[2023-07-02] VITALS (8 sets, daily range): BP systolic 140–152; BP diastolic 80–96; PULSE 83–93; RESP 1–22; TEMP 36.6–36.9; O2SAT 90–97
--- NOTE | 2023-07-02 05:45 | PC.NURSE ---
[id number] Pt slept well during night, daughter at bedside very loving and supportive. Allowed pt to sleep and cares/vitals completed when pt went to BR.
[2023-07-02 06:29] LABS: Chloride* 111 mmol/L (96-114); Potassium* 3.7 mmol/L (3.6-5.1); Sodium* 143 mmol/L (135-149)
[2023-07-02 06:31] LABS: Creatinine* 0.9 mg/dL (0.5-1.5); Est. Creatinine Clearance* 42.46; Estimated Glomerular Filt Rate 64 ml/min
[2023-07-02 06:32] LABS: Alanine Aminotransferase* 38 U/L (4-35); Alkaline Phosphatase* 188 U/L (40-150); Anion Gap 7 mEq/L (7-15); Aspartate Amino Transferase* 36 U/L (12-35); Bilirubin Direct* 0.1 mg/dL (0.0-0.5); Bilirubin Total* 0.5 mg/dL (0.1-1.5); Blood Urea Nitrogen* 31 mg/dL (7-30); Calcium* 8.6 mg/dL (8.4-10.6); Carbon Dioxide* 25 mmol/L (20-32); Glucose* 95 mg/dL (60-115); Phosphorus* 3.3 mg/dL (2.5-4.5); Total Protein* 5.8 g/dL (6.0-8.3)
[2023-07-02 08:10] LABS: NT Pro B Type NatriureticPept* 32600 pg/mL
[2023-07-02] MEDS: ASPIRIN 81 MG TABLET EC PO (08:26)
[2023-07-02] MEDS: ENOXAPARIN 30 MG/0.3ML INJ SUBCUT (08:27)
[2023-07-02] MEDS: lamoTRIgine 100 MG TABLET 150 MG PO (08:28)
[2023-07-02] MEDS: SENNOSIDES/DOCUSATE TABLET 2 TAB PO (08:29)
[2023-07-02] MEDS: MEMANTINE HCL 10 MG TABLET PO ×2 (08:29→20:43)
[2023-07-02] MEDS: SODIUM CHLORIDE 0.9 % (FLUSH) 10 ML SYRINGE 5 ML IVF ×2 (08:30→20:45)
[2023-07-02] MEDS: buPROPion HCL SR 150 MG TAB 300 MG PO (08:30)
[2023-07-02] MEDS: FUROSEMIDE 10 MG/ML inj 20 MG IVP (08:31)
[2023-07-02] MEDS: POTASSIUM CHLORIDE 10 MEQ CAPSULE ER 20 MEQ PO ×2 (08:32→18:27)
--- NOTE | 2023-07-02 10:05 | REH.OT ---
Per MD, Pt and family have decided to initiate hospice services. OT/PT orders are cancelled.
--- NOTE | 2023-07-02 10:23 | PC.SOCIAL ---
Addendum entered by SUNIL Meade 07/02/23 11:32: Discharge planning: Received call back from Tiffany at [facility] stating they could consider a COVID positive patient and requested information be faxed. Sent assessment information to both [facility] and [facility] for evaluation for admit. bakery worker conveyor line to follow up as needed. Original Note: Discharge planning:Per MD, family is interested in [facility]. Called [facility] and spoke with Martha ([phone]) who states they do have one bed available. Martha shared they are not able to accept a positive COVID patient until 10 days past positive diagnosis, but that they could evaluate her for the bed after 07/10/23. Per Martha, [facility] currently has positive COVID cases and may be able to accept a positive patient in the care center. Called and left message requesting call back regarding availability in [facility] for a hospice COVID positive patient. bakery worker conveyor line to follow up as needed.
--- NOTE | 2023-07-02 11:50 | P.IMPN_ITS ---
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 Normal LV size, mildly increased wall thickness, moderately severely reduced global systolic function with an estimated EF of 20 - 25%. 2. Severely enlarged left atrium. 3. Grade 2 pattern of LV diastolic filling. 4. Right ventricular cavity size is normal, global systolic RV function is normal. 5. The aortic valve is sclerotic, no stenosis and moderate regurgitation. 6. The mitral valve is sclerotic, severe mitral regurgitation, eccentric jet directed anteromedially suggests posterior mitral valve leaflet dysfunction. 7. The aortic sinus is normal sized with a maximal diameter of 3.3 cm. MR severe now, EF down to 20% BNP 37,000 Status: Acute (3) Mitral regurgitation: Problem details: - severe Status: Acute (4) Aortic regurgitation: Problem details: - moderate Status: Acute (5) COVID-19: Status: Acute (6) Moderate protein-calorie malnutrition: Status: Acute (7) Myocardial strain: Problem details: - troponin stable - patient does not want aggressive management or transfer at this time Status: Acute Plan - discharge on hospice in next 1-2 days - family updated at bedside, questions answered Subjective Date Seen: 07/02/23 Interval history: Savana was admitted to the hospital on 06/30 for acute hypoxic respiratory failure in the setting of a heart failure exacerbation. She and family (5 children) having elected to forego aggressive management and are planning a comfort focused approach. Sharing has no concerns for the hospitalist team this morning. Exam Narrative: Exam Narrative: Savana is sitting up in bed and having an omelet for breakfast when I see her. Her 5 children are all in attendance for my visit today. Patient is breathing comfortably while sitting in bed, no tachypnea or retractions. There are no concerning skin lesions on exposed skin. She is wearing Cuauhtemoc hose on bilateral lower extremities without significant vahid a. Const: Vital Signs, click to edit/add: Vital Signs - 24 hr 07/01/23 15:41 07/01/23 15:45 07/01/23 15:45 Temperature 98.4 F Pulse Rate 77 Pulse Rate [Pulse Oximeter] 88 Pulse Rate [Right Radial] Respiratory Rate 20 20 Blood Pressure [Le ft Arm] 150/97 H Pulse Oximetry 90 90 Oxygen Delivery Me thod Room Air Room Air Oxygen Flow Rate 07/01/23 18:44 07/01/23 23:00 07/01/23 23:00 Temperature 98.0 F Pulse Rate Pulse Rate [Pulse Oximeter] 81 Pulse Rate [Right Radial] Respiratory Rate 20 20 20 Blood Pressure [Le ft Arm] 138/86 Pulse Oximetry 95 95 Oxygen Delivery Me thod OxyMask OxyMask Oxygen Flow Rate 2 2 07/01/23 23:00 07/02/23 05:00 07/02/23 07:21 Temperature Pulse Rate 86 Pulse Rate [Pulse Oximeter] 93 Pulse Rate [Right Radial] Respiratory Rate 20 20 Blood Pressure [Le ft Arm] 151/92 H Pulse Oximetry 92 Oxygen Delivery Me thod OxyMask OxyMask Oxygen Flow Rate 2 2 07/02/23 08:00 07/02/23 08:00 Temperature 98.0 F Pulse Rate Pulse Rate [Pulse Oximeter] 93 Pulse Rate [Right Radial] 89 Respiratory Rate 22 22 Blood Pressure [Le ft Arm] 151/90 H Pulse Oximetry 93 93 Oxygen Delivery Me thod OxyMask OxyMask Oxygen Flow Rate 2 2 Labs Labs: Laboratory Results - last 24 hr 07/01/23 07/02/23 06:15 05:43 Sodium 143 Potassium 3.7 Chloride 111 Carbon Dioxide 25 Anion Gap 7 BUN 31 H Creatinine 0.9 Estimated Creat Clear 42.46 Estimated GFR 64 Glucose 95 Calcium 8.6 Phosphorus 3.3 Total Bilirubin 0.5 Direct Bilirubin 0.1 AST 36 H ALT 38 H Alkaline Phosphatase 188 H NT-Pro-B Natriuret Pep [id number] Total Protein 5.8 L Albumin 3.0 L
--- NOTE | 2023-07-02 14:29 | NUTR.NU ---
RDN with MD consult for 2 gram sodium diet. Per MD, patient and family have decided to initiate hospice services on discharge. Nutrition education not appropriate at this time. Nutritional consult cancelled. Recommend regular diet to accommodate patient's wishes and goals. Patient planning on discharging to SNF. RDN will continue to follow PRN.
--- NOTE | 2023-07-02 15:28 | PC.SOCIAL ---
Discharge Plan: Spoke with pt's dtr Derrek ([phone]) regarding d/c plans. Derrek stated family and pt have decided they want to use [facility] but are deciding between taking her home with hospice and placement. Derrek requested social service agency director look for placement at [facility] or [facility]. She states the family has not had good experiences with nurs homes and are not interested in any senior care except for [facility] in [place]. [facility] ? called and left a message with the admissions team at [phone]. ?Awaiting call back. [facility] ? called [phone] and spoke with college admissions counselor who said they can not accept a COVID positive patient as they do not have a private room. She said they do accept patients from home and are able to work with hospice teams to coordinate this. [facility] ? There are no beds currently available, but pt has been placed on the waiting list. She is on the waiting list. Director of [facility] suggested that a memory care assisted living of care with hospice services would be the same level of care as what is provided at [facility]. This level of care is offered at [facility] or [facility]. [facility] and [facility] would not be able to accept her until she is done with her 10 days of COVID isolation. Discussed the results of these phone calls with dtr Derrek. Also provided Derrek [facility] list of Medical Education Coordinator Care that could be hired for extra assistance at home. dtr shared that pt has detention care insurance which may pay for this care. Requested [facility] nurse contact the family to answer their questions and discus hospice in greater detail. Family to discuss options and will contact social service agency director with a decision.
--- NOTE | 2023-07-02 17:53 | PC.NURSE ---
Patient's family at bedside all shift. Patient stand by assist. Family helping patient with ambulating in room and toileting. Appetite poor but tolerated regular diet. O2 sats between 93-97% on 2 LPM via oxymask. Patient denied pain and SOB this morning. Shower given with nurse assistance. Patient tolerated shower well without O2 and had no complaints. Telemetry discontinued. Per ok to DC IV if becomes infiltrated. New PRN Morphine orders given for SOB. No complaints of SOB since that time.
[2023-07-02] MEDS: TOPIRAMATE 25 MG TABLET 75 MG PO (18:27)
[2023-07-02] MEDS: VENLAFAXINE ER 75 MG CAPSULE 225 MG PO (20:42)
--- NOTE | 2023-07-03 04:36 | PC.NURSE ---
End of shift: VSS on 2L NC. Alert and orientated. Daughter at bedside throughout the night, helps her to the BR. SBA w/ RW and gate belt. SOB on exertion. No reports of pain. PO liquid morphine is available for increased SOB and pain. Per the patients family they would like her to try a dose before she leaves to go on hospice to see how her body reacts. Call light within reach, and bed is in the lowest position.
[2023-07-03 07:00] VITALS: O2SAT 95
[2023-07-03] MEDS: FUROSEMIDE 10 MG/ML inj 20 MG IVP (08:36)
[2023-07-03] MEDS: POTASSIUM CHLORIDE 10 MEQ CAPSULE ER 20 MEQ PO ×2 (08:39→19:42)
[2023-07-03] MEDS: buPROPion HCL SR 150 MG TAB 300 MG PO (08:40)
[2023-07-03] MEDS: lamoTRIgine 100 MG TABLET 150 MG PO (08:40)
[2023-07-03] MEDS: MEMANTINE HCL 10 MG TABLET PO ×2 (08:41→20:39)
[2023-07-03] MEDS: SODIUM CHLORIDE 0.9 % (FLUSH) 10 ML SYRINGE 5 ML IVF (08:42)
[2023-07-03] MEDS: SENNOSIDES/DOCUSATE TABLET 2 TAB PO (08:42)
[2023-07-03 08:58] VITALS: BP 145/102; PULSE 68; RESP 20; TEMP 36.6; O2SAT 95
--- NOTE | 2023-07-03 10:13 | PC.SOCIAL ---
Discharge planning: Received call from Vianey at [facility], stating they are planning to admit pt to hospice at home on 07/04/23 at 2:00pm. Hospice is working with family regarding equipment being delivered at home prior to discharge and plans for admission on Sunday. dobie worker to follow up as needed.
[2023-07-03] MEDS: MORPHINE 10 MG/0.5 ML ORAL SOLN 5 MG PO ×2 (11:09→20:41)
--- NOTE | 2023-07-03 12:17 | PC.SOCIAL ---
Discharge plan: Spoke with dtr Derrek [phone] who confirmed family has made a plan with [facility] for discharge tomorrow to home. Family to transport pt in their own vehicle at 9:00am and will borrow an oxygen tank from hospital for transport which they will return later tomorrow to the hospital. [facility] is meeting pt at home at 2:00 for intake to hospice. Family is requesting this early discharge and are aware not all of the hospice ordered DME will be at the home when pt arrives. plant maintenance worker to follow up as needed.
--- NOTE | 2023-07-03 14:32 | PM.IMPN1 ---
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 Normal LV size, mildly increased wall thickness, moderately severely reduced global systolic function with an estimated EF of 20 - 25%. 2. Severely enlarged left atrium. 3. Grade 2 pattern of LV diastolic filling. 4. Right ventricular cavity size is normal, global systolic RV function is normal. 5. The aortic valve is sclerotic, no stenosis and moderate regurgitation. 6. The mitral valve is sclerotic, severe mitral regurgitation, eccentric jet directed anteromedially suggests posterior mitral valve leaflet dysfunction. 7. The aortic sinus is normal sized with a maximal diameter of 3.3 cm. MR severe now, EF down to 20% BNP 37,000 Status: Acute (3) Mitral regurgitation: Problem details: - severe Status: Acute (4) Aortic regurgitation: Problem details: - moderate Status: Acute (5) COVID-19: Problem details: - home test + on 06/25 Status: Acute (6) Moderate protein-calorie malnutrition: Status: Acute (7) Myocardial strain: Problem details: - troponin stable - patient does not want aggressive management or transfer at this time Status: Acute Plan - home with hospice on 07/04 - family updated at bedside, questions answered Subjective Date Seen: 07/03/23 Interval history: Savana was admitted to the hospital on 06/30 for acute hypoxic respiratory failure in the setting of a heart failure exacerbation. She will be discharging home with hospice tomorrow. Exam Narrative: Exam Narrative: Patient is sitting comfortably in chair. She appears comfortable, no tachypnea. 2+ edema BLE. Const: Vital Signs, click to edit/add: Vital Signs - 24 hr 07/02/23 15:00 07/02/23 20:45 07/02/23 23:30 Temperature 98.4 F Pulse Rate [Pulse Oximeter] 88 Pulse Rate [Right Radial] Respiratory Rate 1 L 20 20 Blood Pressure [Le ft Arm] 140/80 H Pulse Oximetry 90 91 Oxygen Delivery Me thod OxyMask Nasal Cannula Nasal Cannula Oxygen Flow Rate 2 2 07/03/23 07:00 07/03/23 08:58 Temperature 97.8 F Pulse Rate [Pulse Oximeter] Pulse Rate [Right Radial] 68 Respiratory Rate 20 Blood Pressure [Le ft Arm] 145/102 H Pulse Oximetry 95 95 Oxygen Delivery Me thod Nasal Cannula Nasal Cannula Oxygen Flow Rate 2 2
--- NOTE | 2023-07-03 14:33 | PC.NURSE ---
End of shift report [id number]: Patient resting comfortably in bed. No pain. No trouble breathing. Had 1 dose of morphine as a trial run. No change but also wasn't having pain or trouble breathing. Took a nap. Tolerating a regular diet. Family at bedside. Plan to DC home with hospice at 9am with family to transport. Will use our tank for transport and family will return.
[2023-07-03 15:00] VITALS: PULSE 90; RESP 20; RESP 24; O2SAT 93
--- NOTE | 2023-07-03 16:42 | PC.NURSE ---
Patient pleasant and cooperative. Family at bedside and involved with support. PRN medication given for SOB per MAR. Standy assist with walker and gait belt, tolerating activity fairly.
[2023-07-03] MEDS: TOPIRAMATE 25 MG TABLET 75 MG PO (19:43)
[2023-07-03] MEDS: VENLAFAXINE ER 75 MG CAPSULE 225 MG PO (20:39)
[2023-07-03 21:00] VITALS: BP 131/82; PULSE 90; RESP 24; TEMP 36.6; O2SAT 94
--- NOTE | 2023-07-03 23:48 | PC.NURSE ---
Family remained at bedside throughout shift and assisting pt with ambulation to the BR as well as cares. Pt is moving well with SBA with walker and GB. She is continent as well as a/o x3. Denies pain. Prepress Supervisor notes slightly increased work of breathing, RR= 22-24, PRN Morphine given at HS. VS otherwise WNL. SpO2 94% on 2L/O2 via NC.
[2023-07-03 23:50] VITALS: PULSE 87; RESP 22; O2SAT 95
--- NOTE | 2023-07-04 07:29 | PC.NURSE ---
Pt alert and oriented x3. Lung sounds continue to have course crackles at bases, respiratory rate has been between 20-24 with shallow breaths.?Family at bed side. Slept throughout most of night. Night uneventful. ?
--- NOTE | 2023-07-04 07:53 | PM.DS1 ---
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 Normal LV size, mildly increased wall thickness, moderately severely reduced global systolic function with an estimated EF of 20 - 25%. 2. Severely enlarged left atrium. 3. Grade 2 pattern of LV diastolic filling. 4. Right ventricular cavity size is normal, global systolic RV function is normal. 5. The aortic valve is sclerotic, no stenosis and moderate regurgitation. 6. The mitral valve is sclerotic, severe mitral regurgitation, eccentric jet directed anteromedially suggests posterior mitral valve leaflet dysfunction. 7. The aortic sinus is normal sized with a maximal diameter of 3.3 cm. - worsening disease: MR severe now, EF down to 20%, BNP 37,000 (2) Acute hypoxemic respiratory failure: Status: Acute Problem details: - Multifactorial: Acute on chronic heart failure, + COVID-19 - supplemental oxygen as needed, prn Morphine - Patient and family planning on discharging with hospice on 07/04 (3) COVID-19: Status: Acute Problem details: - home test + on 06/25 (4) Aortic regurgitation: Status: Acute Problem details: - moderate (5) Mitral regurgitation: Status: Acute Problem details: - severe DS: Summary Hospital Course Hospital Course: Savana is a delightful 83 yo female who presented to the ER with dyspnea in the setting of recent COVID infection. Found to have acute hypoxic respiratory failure and CHF exacerbation (details above). Ultimately, she and her family elected for comfort-focused care. She was discharged home on hospice 07/04. Status at Discharge Functional status at discharge: uses cane/walker Time Spent with Patient Time attestation: Total time spent providing and/or coordinating discharge services: Time spent: Greater than 30 minutes Specific discharge activities: hospice admission, patient and family education Exam Narrative: Exam Narrative: GEN: Alert and answering questions appropriately, appears chronically ill, not acutely toxic CV: RRR, + systolic murmur R: Wearing supplemental oxygen with intermittent dyspnea, fine bibasilar crackles Ext: thin, wearing sriram hose Skin: No concerning skin lesions or rashes on exposed skin Neuro: Nonfocal Psych: Appropriate Const: Vital Signs, click to edit/add: Vital Signs - 24 hr 07/03/23 08:58 07/03/23 15:00 07/03/23 15:00 Temperature 97.8 F Pulse Rate [Pulse Oximeter] 90 Pulse Rate [Right Radial] 68 90 Respiratory Rate 20 20 24 Blood Pressure [Le ft Arm] 145/102 H Pulse Oximetry 95 93 Oxygen Delivery Me thod Nasal Cannula Nasal Cannula Oxygen Flow Rate 2 2 07/03/23 21:00 07/03/23 23:50 07/03/23 23:50 Temperature 97.9 F Pulse Rate [Pulse Oximeter] 90 Pulse Rate [Right Radial] 87 Respiratory Rate 24 22 22 Blood Pressure [Le ft Arm] 131/82 Pulse Oximetry 94 95 Oxygen Delivery Me thod Nasal Cannula Nasal Cannula Oxygen Flow Rate 2 2 DS: Data Data Completed and Pending Completed studies during hospitalization: Procedures Replacement of Right Hip Joint, Femoral Surface with Metal Synthetic Substitute, Cemented, Open Approach (02/06/23) Discharge Plan Discharge Disposition: Xfer Home- (Hospice) Date of Admission: 06/30/23 16:16 Attending Provider on Discharge: Yamilex Nava Primary Care Provider: Jesica Skelton Condition: Stable Anticipated Discharge Date/Time: 07/04/23 09:00 Discharge Medications: New sennosides-docusate sodium [Stool Softener-Laxative] 8.6-50 mg Tablet 2 tab PO BID PRN (Reason: constipation) Qty: 30 0RF furosemide 20 mg Tablet 20 mg PO DAILY@0800 PRNQty: 20 0RF Rx Instructions: prn edema or dyspnea - hospice patient morphine 15 mg tablet 15 mg PO Q4H PRN (Reason: pain) Qty: 30 0RF Rx Instructions: 1/2-1 tab Q4H prn pain or dyspnea potassium chloride 20 mEq packet 20 meq PO DAILY Qty: 30 2RF Continued memantine 10 mg tablet 10 mg PO BID venlafaxine 75 mg capsule,extended release 24hr 225 mg PO DAILY Patient Comments: TAKE 3 CAPSULES (225 MG) BY MOUTH ONCE DAILY WITH A MEAL. lamotrigine 100 mg tablet 150 mg PO DAILY Patient Comments: TAKE 1 AND 1/2 TABLETS BY MOUTH ONCE DAILY topiramate 25 mg tablet 75 mg PO QPM bupropion HCl 150 mg tablet sustained-release 12 hr 300 mg PO QAM Discontinued sennosides-docusate sodium [Senexon-S] 8.6-50 mg tablet 2 tab PO BID raloxifene 60 mg tablet 60 mg PO DAILY aspirin [Enteric Coated Aspirin] 81 mg tablet,delayed release (DR/EC) 81 mg PO BIDWM Discharge Orders: Discharge Order (Routine); Ordered 07/04/23 Ordered By: Yamilex Nava Additional Instructions: Check in with Dr. Pan regarding medications for depression. Activity Level: Activity as Tolerated Discharge Diet: Regular Follow Up Appointments: Jesica Skelton MD [Primary Care Provider] - Forms: [facility] Info Instructions
[2023-07-04] MEDS: POTASSIUM CHLORIDE 10 MEQ CAPSULE ER 20 MEQ PO (08:38)
[2023-07-04] MEDS: SENNOSIDES/DOCUSATE TABLET 2 TAB PO (08:39)
[2023-07-04] MEDS: buPROPion HCL SR 150 MG TAB 300 MG PO (08:39)
[2023-07-04] MEDS: MEMANTINE HCL 10 MG TABLET PO (08:39)
[2023-07-04] MEDS: lamoTRIgine 100 MG TABLET 150 MG PO (08:40)
== END 2023-07-04 10:02 | disposition hospice, home (50) | DRG 291 ==
LOC: ED 11:55 → MEDSURG 14:06
PROVIDERS: Family Medicine; Admitting Provider Internal Medicine; Emergency Provider Emergency Medicine; PCP Family Medicine; Visit Provider Internal Medicine
DX: I13.0 Hypertensive heart and chronic kidney disease with heart failure and stage 1 through stage 4 chronic kidney disease, or unspecified chronic kidney disease (principal); I50.43 Acute on chronic combined systolic (congestive) and diastolic (congestive) heart failure; J96.01 Acute respiratory failure with hypoxia; U07.1 COVID-19; E44.0 Moderate protein-calorie malnutrition; N18.9 Chronic kidney disease, unspecified; I08.0 Rheumatic disorders of both mitral and aortic valves; Z96.641 Presence of right artificial hip joint; I10 Essential (primary) hypertension; F03.A0 Unspecified dementia, mild, without behavioral disturbance, psychotic disturbance, mood disturbance, and anxiety; F41.9 Anxiety disorder, unspecified; F32.A Depression, unspecified; R77.8 Other specified abnormalities of plasma proteins
CPT/HCPCS: 36415; 71045; 71275; 80048; 80053; 80069; 80076; 82803; 83605; 83735; 83880; 84100; 84443; 84484; 85025; 85027; 85379; 86140; 87426; 93005; 93306; 94761; 99284; A9270; J1650; J1940; Q9967; S0106

== ENCOUNTER 2023-11-07 19:38 | Emergency (ER) | payer MEDICARE, BC, SELFPAY ==
[2023-11-07 20:19] VITALS: BP 176/79; PULSE 64; RESP 16; TEMP 36.4; O2SAT 96
--- NOTE | 2023-11-07 20:24 | CRLHL7_ITS ---
For Patients: As a result of the Cures Act, medical imaging exams and procedure reports are released immediately into your electronic medical record. You may view this report before your referring provider. If you have questions, please contact your health care provider. Indication: Fall on right humerus. Technique: Right humerus two views. Comparison: None. Findings: There is an impacted mildly comminuted fracture of the right humeral neck with anterior apex angulation of fracture fragments. No additional evidence of fracture. Right shoulder degenerative changes. Soft tissue swelling about the right shoulder. Periarticular calcifications are likely degenerative in nature. No definite radiopaque foreign body. Impression: Right humeral neck fracture. Dictated by Erich Jones MD @ 11/07/2023 9:39:35 PM (Electronically Signed)
--- NOTE | 2023-11-07 20:24 | CRLHL7_ITS ---
For Patients: As a result of the Cures Act, medical imaging exams and procedure reports are released immediately into your electronic medical record. You may view this report before your referring provider. If you have questions, please contact your health care provider. INDICATION: Fall with pain. TECHNIQUE: Right elbow 2 views. COMPARISON: None. FINDINGS: No acute fractures or malalignment. Joint spaces are maintained. Soft tissues are unremarkable. IMPRESSION: No acute osseous abnormality. Dictated by Zachary Barker MD @ 11/08/2023 12:03:25 AM (Electronically Signed)
--- NOTE | 2023-11-07 20:47 | ED_ITS ---
HPI - Extremity Injury (Upper) General Date Seen: 11/07/23 Chief Complaint: Extremity Pain/Injury, Upper Stated Complaint: Fall, R shoulder injury Time Seen by Provider: 11/07/23 20:47 Source: patient, RN notes reviewed and old records reviewed Mode of arrival: ambulatory Limitations: no limitations History of Present Illness HPI narrative: Savana is a very sweet 83-year-old female with history of congestive heart failure, decreased EF and currently on hospice who comes to the emergency room with her family after a fall. Savana notes that she spilled some blueberries and Pepsi in the kitchen and she had gone down to clean it up when she slipped fell hit her head against a cabinet and then fell onto her right shoulder. She tells me that her head barely hit the cabinet and she has no pain to her head or her neck. She did not sustain any loss of consciousness. Her pain is mainly in her right elbow and her upper right arm. She has obvious deformity. She denies any other injury to her back legs. She has not had any recent cough cold or congestion. Her daughter states that Savana had been put on hospice after a very challenging 2022 in which her mom had fallen with pelvic fractures, hip fracture, history of COVID. When they found that her congestive heart failure had worsened they elected to go on hospice. However, her daughter states that they rescinded hospice in order to come to the hospital. She lives in an assisted living facility but does have home health care and hospice nurse and loving family that all help care for her. Movement definitely increases her pain. Family notes that nursing staff gave her morphine prior to her trip here to the hospital. Review of the chart also notes subdural hematoma from a fall in April of 2023. Related Data Home Medications Medication Instructions Recorded Confirmed lamotrigine 100 mg tablet 150 mg PO DAILY 07/02/22 06/30/23 venlafaxine 75 mg capsule,extended 225 mg PO DAILY 07/02/22 06/30/23 release 24 hr bupropion HCl 150 mg tablet,12 hr 300 mg PO QAM 02/06/23 06/30/23 sustained-release memantine 10 mg tablet 10 mg PO BID 04/04/23 06/30/23 topiramate 25 mg tablet 75 mg PO QPM 06/30/23 06/30/23 Previous Rx's Medication Instructions Recorded furosemide 20 mg tablet 20 mg PO DAILY@0800 PRN #20 tabs 07/03/23 sennosides 8.6 mg-docusate sodium 2 tab PO BID PRN constipation #30 07/03/23 50 mg tablet (Stool tabs Softener-Laxative) morphine 15 mg immediate release 15 mg PO Q4H PRN pain #30 tabs 07/04/23 tablet potassium chloride 20 mEq oral 20 meq PO DAILY #30 ea 07/04/23 packet Allergies Allergy/AdvReac Type Severity Reaction Status Date / Time amoxicillin Allergy Mild Verified 04/04/23 14:24 Review of Systems Status of ROS: Reports: 10 or more systems reviewed and unremarkable except as noted in History and below Const: Denies: fever or chills Eyes: Denies: change in vision or blurry vision ENMT: Denies: neck pain Cardio: Denies: chest pain Resp: Denies: cough Musculo: Denies: neck pain PFSH PFSH Medical History Moderate protein-calorie malnutrition ?E44.0 - Moderate protein-calorie malnutrition (ICD-10) Essential hypertension ?I10 - Essential (primary) hypertension (ICD-10) Rectal incontinence ?R15.9 - Full incontinence of feces (ICD-10) Anxiety disorder ?F41.9 - Anxiety disorder, unspecified (ICD-10) Unspecified dementia, mild, without behavioral disturbance, psychotic disturbance, mood disturbance, and anxiety ?F03.A0 - Unspecified dementia, mild, without behavioral disturbance, psychotic disturbance, mood disturbance, and anxiety (ICD-10) Physical deconditioning ?R53.81 - Other malaise (ICD-10) Chronic kidney disease (CKD) ?N18.9 - Chronic kidney disease, unspecified (ICD-10) Anemia ?D64.9 - Anemia, unspecified (ICD-10) Subdural hematoma, post-traumatic ?S06.5XAA - Traumatic subdural hemorrhage with loss of consciousness status unknown, initial encounter (ICD-10) Nondisplaced fracture of greater trochanter of left femur ?S72.115A - Nondisplaced fracture of greater trochanter of left femur, initial encounter for closed fracture (ICD-10) Closed fracture of left pubis with routine healing ?S32.502D - Unspecified fracture of left pubis, subsequent encounter for fracture with routine healing (ICD-10) Decreased urine output ?R34 - Anuria and oliguria (ICD-10) Aortic regurgitation ?I35.1 - Nonrheumatic aortic (valve) insufficiency (ICD-10) Mitral regurgitation ?I34.0 - Nonrheumatic mitral (valve) insufficiency (ICD-10) Fracture of femoral neck, right ?S72.001A - Fracture of unspecified part of neck of right femur, initial encounter for closed fracture (ICD-10) Ataxia ?R27.0 - Ataxia, unspecified (ICD-10) Microscopic colitis ?K52.839 - Microscopic colitis, unspecified (ICD-10) Osteoporosis ?M81.0 - Age-related osteoporosis without current pathological fracture (ICD- 10) Hematoma ?T14.8XXA - Other injury of unspecified body region, initial encounter (ICD- 10) Depression ?F32.A - Depression, unspecified (ICD-10) Macular degeneration ?H35.30 - Unspecified macular degeneration (ICD-10) Surgical History 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) ?Z96.641 - Presence of right artificial hip joint (ICD-10) H/O vein stripping ?Z98.890 - Other specified postprocedural states (ICD-10) History of colonoscopy ?Z98.890 - Other specified postprocedural states (ICD-10) Hx of tubal ligation ?Z98.51 - Tubal ligation status (ICD-10) History of hysterectomy ?Z90.710 - Acquired absence of both cervix and uterus (ICD-10) History of cholecystectomy ?Z90.49 - Acquired absence of other specified parts of digestive tract (ICD- 10) History of appendectomy ?Z90.49 - Acquired absence of other specified parts of digestive tract (ICD- 10) Family History Father Alzheimers disease Heart disease Daughter Diabetes Mother Heart disease Social History Narrative: Lives at [facility]. Lives independently. Walks with a cane outside her apartment. Has 5 children. Her daughter, Stephanie, is healthcare power of collections attorney and lives in [place]. Code status is DNR. What is your current living situation?: I presently have a place to live Problems where you live: no known problems Problems where you live details: NA In the past 12 months, utilities in danger of being shut off: no In past 12 months, lack of transportation kept you from medical appts, meetings, work, or getting things needed for daily living: no In the past 12 mos, have been you worried that your food would run out before you had money to buy more?: never true In the past 12 mos, the food you bought just didn't last and you didn't have money to buy more?: never true Highest level of school completed/degree received: some college, no degree Smoking Status: Never smoker Do you use any of these nicotine containing products: None Second hand tobacco smoke exposure: No How often do you have a drink containing alcohol: monthly or less Alcohol type: hard liquor How many standard drinks containing alcohol do you have on a typical day: 1 or 2 How often do you have six or more drinks on one occasion: Never AUDIT-C Alcohol total score: 1 Non-prescribed substance use: denies use Caffeine: Yes How often does anyone, including family, friends and others, physically hurt you : never How often does anyone, including family, friends and others, insult or talk down to you: never How often does anyone, including family, friends and others, threaten you with harm: never How often does anyone, including family, friends and others, scream or curse at you: never service: No Exam Narrative: Exam Narrative: Alert and oriented. Very pleasant woman. She has wincing when she had must move her arm otherwise is sitting in a wheelchair and is pleasant and interactive. Mentating normally. External ears eyes nose clear. Head is with small area of edema on left posterior a septal area. No step-offs palpated. Neck is without any midline tenderness and range of motion is full with no discomfort. Heart is with regular rate and rhythm. Lungs are with decreased breath sounds but no crackles are noted. Examination of the right shoulder shows obvious edema of the upper humeral head area. She has discomfort noted on the of right lateral olecranon. A bandage is in place at this time. She is able to flex extend at the elbow. Distally she has a good pulse and sensation and motor is intact. No significant lower extremity edema. Const: Vital Signs, click to edit/add: Vital Signs - 24 hr 11/07/23 20:19 11/07/23 22:54 11/07/23 22:54 Temperature 97.5 F L 98.0 F 98.0 F Pulse Rate [Pulse Oximeter] 64 68 68 Respiratory Rate 16 16 16 Blood Pressure [Le ft Upper Arm] 176/79 H 145/74 H 145/74 H Pulse Oximetry 96 96 Oxygen Delivery Me thod Room Air Room Air Documenting provider has reviewed patient's vital signs: yes Course Course ED Course: X-ray of the humerus was done prior to my seeing patient and does show a humeral head fracture. Patient also will need x-ray of her elbow as she does complain of elbow pain at this time. I did speak to her specifically about bumping her head and she is telling me that it was very soft and that she has no headache. Obviously with her history of subdural hematoma this is concerning. But she assures me that she has no pain and that she barely hit her head. She has really no other complaints tonight including shortness of breath or recent illnesses. Therefore will not pursue any lab tests at this time. Vital Signs Vital signs: Initial Vital Signs Temperature 97.5 F L 11/07/23 20:19 Temperature Source Temporal Artery Scan 11/07/23 20:19 Pulse Rate 64 11/07/23 20:19 Respiratory Rate 16 11/07/23 20:19 Blood Pressure 176/79 H 11/07/23 20:19 Blood Pressure Mean 111 H 11/07/23 20:19 Blood Pressure Position Sitting 11/07/23 20:19 Pulse Oximetry 96 11/07/23 20:19 Oxygen Delivery Method Room Air 11/07/23 20:19 Vital Signs Temperature 97.5 F L 11/07/23 20:19 Pulse Rate 64 11/07/23 20:19 Respiratory Rate 16 11/07/23 20:19 Blood Pressure 176/79 H 11/07/23 20:19 Pulse Oximetry 96 11/07/23 20:19 Oxygen Delivery Method Room Air 11/07/23 20:19 Temperature 98.0 F 11/07/23 22:54 Pulse Rate 68 11/07/23 22:54 Respiratory Rate 16 11/07/23 22:54 Blood Pressure 145/74 H 11/07/23 22:54 Pulse Oximetry 96 11/07/23 22:54 Oxygen Delivery Method Room Air 11/07/23 22:54 MDM - Extremity Injury (Upper) MDM Narrative Medical decision making narrative: 1. Right Humeral head fracture-at this time given patient's age this will likely be nonsurgical and therefore in placing her in a sling for comfort. She will need to follow up with orthopedics and have given the phone number for their clinic. In regards to pain initially we had discussed the use of oxycodone but patient already uses morphine at home for pain and she may use this for any pain that is not relieved by acetaminophen. Patient has a very good reason for her fall tonight and this was not secondary to any prodromal symptoms. 2. Right elbow injury-no evidence of fracture on official radiological over- read. Family did depart prior to the radiology report as radiology reports were taking extended times tonight. I did states them I would call them if there was any fractures. 3. Disposition-home with family. Very loving and supportive family will assist in caring for Savana. Return for onset of new symptoms worsening pain and as needed. Medical Records Attestation: I reviewed the patient's medical records. Imaging Data Humeral x-ray: Attestation: I have reviewed the pertinent imaging results. My impression: By my read patient has a fracture of the humeral head. Radiologist's impression: There is an impacted mildly comminuted fracture of the right humeral neck with anterior apex angulation of fracture fragments. No additional evidence of fracture. Right shoulder degenerative changes. Soft tissue swelling about the right shoulder. Periarticular calcifications are likely degenerative in nature. No definite radiopaque foreign body. Impression: Right humeral neck fracture. Elbow x-ray: Attestation: I have reviewed the pertinent imaging results. My impression: I do not note any evidence of fracture Radiologist's impression: No acute fractures or malalignment. Joint spaces are maintained. Soft tissues are unremarkable. IMPRESSION: No acute osseous abnormality. Discharge Plan Discharge Clinical Impression: Fracture of head of humerus Qualifiers: Encounter type: initial encounter Fracture type: closed Laterality: right Qualified Code(s): S42.291A - Other displaced fracture of upper end of right humerus, initial encounter for closed fracture Patient Disposition: Home, Self-Care Condition: Unchanged Additional Instructions: Sling for comfort. Recommend following up with orthopedics for recheck. You can call for an appointment at [phone]. Let them know you have a humeral head fracture. Recommend use of Tylenol 650 mg every 6 hours as needed. Oxycodone 1/2-1 tab every 4 hours as needed for pain. Be very careful with ambulating as without the use of your arm you actually become more on balanced and are increased risk for a fall. Return to the emergency room for new or worsening symptoms. Prescriptions: No Action memantine 10 mg tablet 10 mg PO BID venlafaxine 75 mg capsule,extended release 24hr 225 mg PO DAILY Patient Comments: TAKE 3 CAPSULES (225 MG) BY MOUTH ONCE DAILY WITH A MEAL. lamotrigine 100 mg tablet 150 mg PO DAILY Patient Comments: TAKE 1 AND 1/2 TABLETS BY MOUTH ONCE DAILY topiramate 25 mg tablet 75 mg PO QPM sennosides-docusate sodium [Stool Softener-Laxative] 8.6-50 mg Tablet 2 tab PO BID PRN (Reason: constipation) Qty: 30 0RF furosemide 20 mg Tablet 20 mg PO DAILY@0800 PRNQty: 20 0RF Rx Instructions: prn edema or dyspnea - hospice patient morphine 15 mg tablet 15 mg PO Q4H PRN (Reason: pain) Qty: 30 0RF Rx Instructions: 1/2-1 tab Q4H prn pain or dyspnea potassium chloride 20 mEq packet 20 meq PO DAILY Qty: 30 2RF bupropion HCl 150 mg tablet sustained-release 12 hr 300 mg PO QAM Follow Up/Referrals: eJsica Skelton MD [Primary Care Provider] - Stand Alone Forms: [employer] Info Instructions
[2023-11-07 22:54] VITALS: BP 145/74; PULSE 68; RESP 16; TEMP 36.7; O2SAT 96
== END 2023-11-07 22:56 | disposition home or self-care (01) ==
PROVIDERS: Emergency Provider Family Medicine; PCP Family Medicine
DX: S42.201A Unspecified fracture of upper end of right humerus, initial encounter for closed fracture (principal); M25.521 Pain in right elbow; W19.XXXA Unspecified fall, initial encounter
CPT/HCPCS: 73060; 73070; 99284

== ENCOUNTER 2024-06-25 05:01 | Emergency (ER) | payer MEDICARE, BC, SELFPAY ==
[2024-06-25 05:09] VITALS: BP 171/76; PULSE 74; RESP 16; TEMP 36.4; O2SAT 97
--- NOTE | 2024-06-25 05:24 | CRLHL7_ITS ---
For Patients: As a result of the Cures Act, medical imaging exams and procedure reports are released immediately into your electronic medical record. You may view this report before your referring provider. If you have questions, please contact your health care provider. INDICATION: Fall, pain COMPARISON: 06/30/2023, 02/06/2020 TECHNIQUE: Three views chest and left ribs. FINDINGS: There are several old healed rib fracture deformities bilaterally. No acute left rib fracture seen. No focal or diffuse lung opacities. No pneumothorax. No pleural effusion. Large cardiac silhouette appears similar to prior. IMPRESSION: No acute left rib fracture seen. Dictated by Stacey Ruiz MD @ 06/25/2024 6:03:51 AM (Electronically Signed)
--- NOTE | 2024-06-25 05:45 | ED_ITS ---
HPI - General Adult General Chief complaint: Fall/Minor Trauma Stated complaint: fall - back/rib injury Time Seen by Provider: 06/25/24 05:03 Source: patient and family Mode of arrival: ambulatory Limitations: no limitations History of Present Illness HPI narrative: 84-year-old female lives independently presents the emergency department with family for evaluation of left rib pain after a fall. She got up at 4:00 a.m. to go to the bathroom. She was not feeling dizzy, lightheaded or ill in any way. She simply tripped, fully verbalizes that this is a mechanical type fall, landing down on her left side. She was able to get herself up and call for help without assistance. She is confident that she did not hit her head and had no loss of consciousness. She denies any fever, intoxication, chest pain or br eathing issues. No recent illness. Review of the records does show that she typically has a couple of falls per year including a humerus fracture earlier this year. She says that she does not fall frequently and she does use a wheeled walker with a seat to get around. Other than the left rib pain, there are no other areas of pain or injury. Family gives me the impression that she is mentating at her baseline. Did take some Tylenol prior to coming to the ED for her pain and reports that this is helping. Pain is in the left mid rib underneath the axilla, radiating into the left shoulder blade. Achy and worse with movement. No anticoagulants. Past medical history is most notable for history of aortic stenosis, anxiety congestive heart failure. Medications reviewed, listed is accurate. ROS is notable for the mechanical fall as described above, otherwise deniez any other generalized, cardiac, respiratory, musculoskeletal, neurological or skin changes. Related Data Home Medications ?Medication ?Instructions ?Recorded ?Confirmed lamotrigine 100 mg tablet 150 mg PO DAILY 07/02/22 06/25/24 venlafaxine 75 mg capsule,extended 225 mg PO DAILY 07/02/22 06/25/24 release 24 hr bupropion HCl 150 mg tablet,12 hr 300 mg PO QAM 02/06/23 06/30/23 sustained-release memantine 10 mg tablet 10 mg PO BID 04/04/23 06/30/23 topiramate 25 mg tablet 75 mg PO QPM 06/30/23 06/25/24 Klor-Con M20 06/25/24 bupropion HCl 150 mg 24 hr tablet, 150 mg PO QAM 06/25/24 06/25/24 extended release (Wellbutrin XL) bupropion HCl 300 mg 24 hr tablet, 300 mg PO QAM 06/25/24 06/25/24 extended release (Wellbutrin XL) dextromethorphan IR 45 1 tab PO DAILY 06/25/24 06/25/24 mg-bupropion ER 105 mg biphasic tablet (Auvelity) raloxifene 60 mg tablet 60 mg PO DAILY 06/25/24 06/25/24 Previous Rx's ?Medication ?Instructions ?Recorded furosemide 20 mg tablet 20 mg PO DAILY@0800 PRN #20 tabs 07/03/23 sennosides 8.6 mg-docusate sodium 2 tab PO BID PRN constipation #30 07/03/23 50 mg tablet (Stool tabs Softener-Laxative) morphine 15 mg immediate release 15 mg PO Q4H PRN pain #30 tabs 07/04/23 tablet potassium chloride 20 mEq oral 20 meq PO DAILY #30 ea 07/04/23 packet Allergies Allergy/AdvReac Type Severity Reaction Status Date / Time amoxicillin Allergy Mild Verified 04/04/23 14:24 [facility] Medical History 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 ?I50.43 - Acute on chronic combined systolic (congestive) and diastolic (congestive) heart failure (ICD-10) ?I38 - Endocarditis, valve unspecified (ICD-10) Acute hypoxemic respiratory failure ?J96.01 - Acute respiratory failure with hypoxia (ICD-10) COVID-19 ?U07.1 - COVID-19 (ICD-10) Moderate protein-calorie malnutrition ?E44.0 - Moderate protein-calorie malnutrition (ICD-10) Essential hypertension ?I10 - Essential (primary) hypertension (ICD-10) Rectal incontinence ?R15.9 - Full incontinence of feces (ICD-10) Anxiety disorder ?F41.9 - Anxiety disorder, unspecified (ICD-10) Unspecified dementia, mild, without behavioral disturbance, psychotic disturbanc e, mood disturbance, and anxiety ?F03.A0 - Unspecified dementia, mild, without behavioral disturbance, psychotic disturbance, mood disturbance, and anxiety (ICD-10) Physical deconditioning ?R53.81 - Other malaise (ICD-10) Chronic kidney disease (CKD) ?N18.9 - Chronic kidney disease, unspecified (ICD-10) Anemia ?D64.9 - Anemia, unspecified (ICD-10) Subdural hematoma, post-traumatic ?S06.5XAA - Traumatic subdural hemorrhage with loss of consciousness status unknown, initial encounter (ICD-10) Nondisplaced fracture of greater trochanter of left femur ?S72.115A - Nondisplaced fracture of greater trochanter of left femur, initial encounter for closed fracture (ICD-10) Closed fracture of left pubis with routine healing ?S32.502D - Unspecified fracture of left pubis, subsequent encounter for fracture with routine healing (ICD-10) Decreased urine output ?R34 - Anuria and oliguria (ICD-10) Aortic regurgitation ?I35.1 - Nonrheumatic aortic (valve) insufficiency (ICD-10) Mitral regurgitation ?I34.0 - Nonrheumatic mitral (valve) insufficiency (ICD-10) Fracture of femoral neck, right ?S72.001A - Fracture of unspecified part of neck of right femur, initial encounter for closed fracture (ICD-10) Ataxia ?R27.0 - Ataxia, unspecified (ICD-10) Microscopic colitis ?K52.839 - Microscopic colitis, unspecified (ICD-10) Osteoporosis ?M81.0 - Age-related osteoporosis without current pathological fracture (ICD- 10) Hematoma ?T14.8XXA - Other injury of unspecified body region, initial encounter (ICD- 10) Depression ?F32.A - Depression, unspecified (ICD-10) Macular degeneration ?H35.30 - Unspecified macular degeneration (ICD-10) Surgical History 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) ?Z96.641 - Presence of right artificial hip joint (ICD-10) H/O vein stripping ?Z98.890 - Other specified postprocedural states (ICD-10) History of colonoscopy ?Z98.890 - Other specified postprocedural states (ICD-10) Hx of tubal ligation ?Z98.51 - Tubal ligation status (ICD-10) History of hysterectomy ?Z90.710 - Acquired absence of both cervix and uterus (ICD-10) History of cholecystectomy ?Z90.49 - Acquired absence of other specified parts of digestive tract (ICD- 10) History of appendectomy ?Z90.49 - Acquired absence of other specified parts of digestive tract (ICD- 10) Family History Father Alzheimers disease Heart disease Daughter Diabetes Mother Heart disease Social History Narrative: Lives at [facility] [place]. Lives independently. Walks with a cane outside her apartment. Has 5 children. Her daughter, Stephanie, is healthcare power of sour bleaching pleater and lives in [place]. Code status is DNR. What is your current living situation?: I presently have a place to live Problems where you live: no known problems Problems where you live details: NA In the past 12 months, utilities in danger of being shut off: no In past 12 months, lack of transportation kept you from medical appts, meetings, work, or getting things needed for daily living: no In the past 12 mos, have been you worried that your food would run out before you had money to buy more?: never true In the past 12 mos, the food you bought just didn't last and you didn't have money to buy more?: never true Highest level of school completed/degree received: some college, no degree Smoking Status: Never smoker Do you use any of these nicotine containing products: None Second hand tobacco smoke exposure: No How often do you have a drink containing alcohol: monthly or less Alcohol type: hard liquor How many standard drinks containing alcohol do you have on a typical day: 1 or 2 How often do you have six or more drinks on one occasion: Never AUDIT-C Alcohol total score: 1 Non-prescribed substance use: denies use Caffeine: Yes How often does anyone, including family, friends and others, physically hurt you : never How often does anyone, including family, friends and others, insult or talk down to you: never How often does anyone, including family, friends and others, threaten you with harm: never How often does anyone, including family, friends and others, scream or curse at you: never service: No Exam Const: Vital Signs, click to edit/add: Vital Signs - 24 hr 06/25/24 05:09 Temperature 97.6 F Pulse Rate [Pulse Oximeter] 74 Respiratory Rate 16 Blood Pressure [Ri ght Upper Arm] 171/76 H Pulse Oximetry 97 Oxygen Delivery Me thod Room Air Documenting provider has reviewed patient's vital signs: yes Common normals: no apparent distress and alert General appearance: cooperative and well kempt Other: I observed her ambulating with her walker steady on her feet, conversing clearly with staff. Good mentation and memory today. Friendly and interactive. HENMT: Common normals: normocephalic and head/scalp atraumatic Head and scalp: normocephalic and atraumatic Face and sinus: normal facial exam Mouth: oral and palatal mucosa normal Throat: posterior oropharynx normal Eye: Common normals: EOMs intact bilaterally and conjunctivae normal General eye: normal appearance of both eyes Conjunctiva: conjunctiva(e) normal Neck & C-Spine: Common normals: full ROM General: normal visual inspection Chest: Common normals: inspection of chest normal and palpation of chest normal Resp: Common normals: normal respiratory effort, no retractions, no use of accessory muscles and clear to auscultation bilaterally Effort & inspection: able to speak in complete sentences Auscultation: clear to auscultation bilaterally Cardio: Common normals: regular rate and regular rhythm Rate: regular rate Rhythm: regular rhythm Other: Slight early systolic murmur, no gallop. : Common normals: no CVA tenderness Bladder/kidney exam: no CVA tenderness Back & Pelvis: Common normals: no CVA tenderness, thoracic and lumbar spine normal to inspection and no thoracic nor lumbar tenderness Other: Mild chronic appearing kyphosis but no point tenderness. Extremity: Common normals: normal to inspection, full ROM and normal capillary refill Other: Left shoulder wrist and elbow with normal range of motion, no deformity, swelling or bruising. Right wrist and elbow and hands with normal range of motion, no deformity or swelling. Both ankles and knees and feet appear normal with no deformity, swelling or point tenderness, normal range of motion noted. Palpation of pelvis and outer hips without tenderness. No deformity. Neuro: Sensorium/orientation: alert Speech: speech normal Gait (neuro): normal gait Motor exam: no movement abnormalities noted Psych: Appearance: well kempt Attitude: engaged Mood and affect: euthymic mood Insight: insight good Judgement: judgment good Skin: Common normals: no rashes or lesions noted General skin exam: no rashes or lesions noted Course Course ED Course: 84-year-old female with mechanical type fall resulting in left rib pain. Exam with low suspicion for fracture but x-ray recommended due to frailty and age. Patient declines pain medication at this time. He will fall does see back in a cool in nature, counseled patient and family that there does not seem to need to be in investigation for underlying cardiac, infectious or metabolic causes, they are in agreement. Await x-ray findings. Anticipate discharge on conservative management in [id number] pain medication. Reevaluation(s) Time of Reevaluation #1: 06:10 Reevaluation #1: Patient and family counseled on x-ray findings, reassuring. Old rib fractures noted but no new evidence of new fracture. Cardiac silhouette is stable. Patient seems to be doing quite well and I do not recommend further workup. Family is comfortable with this. All questions answered. Recommended Tylenol 1000 mg t.i.d. and or ibuprofen 400 mg up to b.i.d. because of her cardiac history for the next 3 days only. Alarm symptoms reviewed that would warrant ED presentation. Written instructions provided. All questions answered regarding rib contusions. Vital Signs Vital signs: Initial Vital Signs Temperature 97.6 F 06/25/24 05:09 Temperature Source Temporal Artery Scan 06/25/24 05:09 Pulse Rate 74 06/25/24 05:09 Respiratory Rate 16 06/25/24 05:09 Blood Pressure 171/76 H 06/25/24 05:09 Blood Pressure Mean 107 H 06/25/24 05:09 Blood Pressure Position Sitting 06/25/24 05:09 Pulse Oximetry 97 06/25/24 05:09 Oxygen Delivery Method Room Air 06/25/24 05:09 Vital Signs Temperature 97.6 F 06/25/24 05:09 Pulse Rate 74 06/25/24 05:09 Respiratory Rate 16 06/25/24 05:09 Blood Pressure 171/76 H 06/25/24 05:09 Pulse Oximetry 97 06/25/24 05:09 Oxygen Delivery Method Room Air 06/25/24 05:09 Temperature 97.6 F 06/25/24 05:09 Pulse Rate 74 06/25/24 05:09 Respiratory Rate 16 06/25/24 05:09 Blood Pressure 171/76 H 06/25/24 05:09 Pulse Oximetry 97 06/25/24 05:09 Oxygen Delivery Method Room Air 06/25/24 05:09 Discharge Plan Discharge Clinical Impression: Contusion of rib on left side Patient Disposition: Home w/ Parent or Adult Condition: Stable Instructions: Rib Contusion (ED) Additional Instructions: As we discussed, your x-ray does not show any new rib fractures. You certainly did have some old rib fractures in the past that have healed without complication. Your heart also looks stable. It is important that you keep moving and remain active for the next few days to reduce her chance of pneumonia. For pain, I recommend Tylenol 1000 mg every 8 hours. We have to be careful with her heart history on using ibuprofen, but I would be comfortable with you using 400 mg twice daily as add on therapy if needed. If you have difficulty sleeping, it would be okay for you to try some melatonin and or Unisom to help you sleep tonight. You may use a heating pad or ice if the ribs are painful if you find this helpful. Make sure that you are using your walker to help reduce your risk of falls. Things tend to feel quite a bit better after about a week but can take 2-3 weeks to heal completely. If you start running high fevers, have severe shortness of breath, severe weakness or other signs of complications, please come back to the emergency department. Activity Level: Activity as Tolerated Discharge Diet: Regular Prescriptions: No Action memantine 10 mg tablet 10 mg PO BID venlafaxine 75 mg capsule,extended release 24hr 225 mg PO DAILY Patient Comments: TAKE 3 CAPSULES (225 MG) BY MOUTH ONCE DAILY WITH A MEAL. lamotrigine 100 mg tablet 150 mg PO DAILY Patient Comments: TAKE 1 AND 1/2 TABLETS BY MOUTH ONCE DAILY topiramate 25 mg tablet 75 mg PO QPM sennosides-docusate sodium [Stool Softener-Laxative] 8.6-50 mg Tablet 2 tab PO BID PRN (Reason: constipation) Qty: 30 0RF furosemide 20 mg Tablet 20 mg PO DAILY@0800 PRNQty: 20 0RF Rx Instructions: prn edema or dyspnea - hospice patient morphine 15 mg tablet 15 mg PO Q4H PRN (Reason: pain) Qty: 30 0RF Rx Instructions: 1/2-1 tab Q4H prn pain or dyspnea potassium chloride 20 mEq packet 20 meq PO DAILY Qty: 30 2RF raloxifene 60 mg tablet 60 mg PO DAILY bupropion HCl [Wellbutrin XL] 300 mg tablet extended release 24 hr 300 mg PO QAM bupropion HCl [Wellbutrin XL] 150 mg tablet extended release 24 hr 150 mg PO QAM Auvelity 45-105 mg tablet, IR and ER, biphasic 1 tab PO DAILY Klor-Con M20 Rx Instructions: TAKE 1 TABLET (20 MEQ) BY MOUTH EACH TIME IF NEEDED (WITH LASIX). bupropion HCl 150 mg tablet sustained-release 12 hr 300 mg PO QAM Follow Up/Referrals: Jesica Skelton MD [Primary Care Provider] - Stand Alone Forms: [facility]
== END 2024-06-25 06:25 | disposition home or self-care (01) ==
PROVIDERS: Emergency Provider Family Medicine; PCP Family Medicine
DX: S20.212A Contusion of left front wall of thorax, initial encounter (principal); W19.XXXA Unspecified fall, initial encounter
CPT/HCPCS: 71101; 99283

== ENCOUNTER 2025-04-18 16:19 | Outpatient (CLI) | payer MEDICARE, BC, SELFPAY ==
--- OUTSIDE RECORDS SUMMARY | 2025-04-20 16:43 | XMS_ITS | Clinical Summary ---
Author Organization [facility] Address [facility] [place] [address] Care Team Providers Care News Specialist Name Role Phone Stuart Vinson NP, Melanie Unavailable [phone] Jesica Skelton MD Primary Care Provider + Vick Pan MD Unavailable [facility] [place] Unavailable Allergies Active Allergy Reactions Criticality Noted Date Comments Amoxicillin Rash 01/28/2007 Medications acetaminophen (TYLENOL EXTRA STRGTH) 500 mg tablet Take 2 Tablets (1,000 mg) by mouth three times daily. And 1000 mg qd PRN. Max acetaminophen dose: 4000mg in 24 hrs. 0 05/22/20 23 Active sennosides-do cusate (Senna-S) (8.6-50 mg) tabletIndicat ions:Constipa tion, acute Take 1 Tablet by mouth two times daily. 180 Tablet 3 10/01/20 24 Active Wellbutrin XL 300 mg Extended-Rele ase tabletIndicat ions:Bipolar depression (HC) Take 1 Tablet (300 mg) by mouth once daily in the morning. 90 Tablet 3 10/03/20 24 Active raloxifene (EVISTA) 60 mg tabletIndicat ions:Compress ion fracture of T6 vertebra with routine healing TAKE 1 TABLET BY MOUTH ONCE DAILY. 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 TAKE 1 TABLET (20 MEQ) BY MOUTH EACH TIME IF NEEDED (WITH LASIX). 03/13/20 25 Active lamoTRIgine 200 mg tabletIndicat ions:Mild mixed bipolar I disorder (HC) Take 1 Tablet (200 mg) by mouth once daily. 90 Tablet 1 04/09/20 25 Active sertraline 50 mg tabletIndicat ions:Bipolar depression (HC) Take 1.5 Tablets (75 mg) by mouth once daily in the morning. 45 Tablet 1 04/09/20 25 Active venlafaxine 75 mg cp24 Extended-Rele ase capsuleIndica tions:Mild mixed bipolar I disorder (HC) Take 112.5 mg (75 mg and 37.5 mg) at bedtime. 90 Capsule 04/09/20 25 Active venlafaxine 37.5 mg Extended-Rele ase capsuleIndica tions:Bipolar depression (HC) Take 112.5 mg (75 mg and 37.5 mg) at bedtime. 90 Capsule 04/09/20 25 Active topiramate 50 mg tabletIndicat ions:Bipolar depression (HC) Take 1 Tablet (50 mg) by mouth at bedtime. 90 Tablet 04/09/20 25 Active sennosides-do cusate (8.6-50 mg) tablet Take 2 Tablets by mouth two times daily. 07/03/20 23 Active lamoTRIgine 200 mg tabletIndicat ions:Mild mixed bipolar I disorder (HC) Take 1 Tablet (200 mg) by mouth once daily. 90 Tablet 1 02/06/20 25 2024 Discontinued(R eorder (E-cancel not sent)) sertraline 50 mg tabletIndicat ions:Bipolar depression (HC) Take 1 Tablet (50 mg) by mouth once daily in the morning. 30 Tablet 1 02/06/20 25 2024 Discontinued topiramate 25 mg tabletIndicat ions:Bipolar depression (HC) Take 2 Tablets (50 mg) by mouth at bedtime. 60 Tablet 1 02/06/20 25 2024 Discontinued(* Medication adjustment) venlafaxine 75 mg cp24 Extended-Rele ase capsuleIndica tions:Mild mixed bipolar I disorder (HC) Take 2 Capsules (150 mg) by mouth once daily with a meal. 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 (HC) Take 1 tablet by mouth in the morning and ONE-HALF tablet in the afternoon 15 Tablet 9:32 AM CDT 03/13/202024 Discontinued(* Med complete/Regim en complete/Level of care change) sertraline 50 mg tabletIndicat ions:Bipolar depression (HC) TAKE 1 TABLET BY MOUTH ONCE DAILY IN THE MORNING 30 Tablet 04/08/202024 Discontinued(* Medication adjustment) Active Problems Problem Noted Date Diagnosed Date Bipolar disorder 04/20/2025 Overview (04/20/2025): AI Summary: As of 03/05/25: The patient has a history of bipolar I disorder, with the most recent episode described as mixed and mild on 03/05/2025. The patient's history also includes multiple hospitalizations and ECT treatments until 2013, and the patient was prescribed bupropion and topiramate on multiple occasions between 2018 and 2024 for bipolar depression. Additionally, sertraline was prescribed on 12/12/2024 and 02/05/2025 for bipolar depression, and aripiprazole was prescribed on 06/15/2022 for the same reason. 03/05/25: TSH 1.93 mIU/L Recent encounter dx: 03/03/25: Appointment - [facility][Note 3] 02/05/25: Appointment - [facility] 02/03/25: Support OP Encounter - [facility] 01/17/25: Support OP Encounter - [facility] 01/16/25: Appointment - [facility] Recent notes: 03/05/25: Progress Notes by Gail Villaseñor NP ... [+] ? Bipolar I disorder, most recent episode (or current) mixed, mild F31.61 02/05/25: Progress Notes by Vick Pan MD ... [-] Bipolar depression ... [+] Prior psychiatric diagnoses: bipolar I disorder ... [+] Bipolar I disorder, most recently depressed ... [+] Ms. Savana Winston is a very pleasant 84 year old female from [place], [place], with a history of bipolar I disorder, hypertension, and falls, who required multiple hospitalizations and ECT treatments until 2013. 11/10/24: Progress Notes by Manfred Mock MD ... [-] Bipolar disorder. 02/06/24: Progress Notes by Vick Pan MD ... [+] Ms. Savana Winston is a very pleasant 83 year old female from [place], [place], with a history of bipolar I disorder, hypertension, and falls, who required multiple hospitalizations and ECT treatments until 2013. 06/04/23: Progress Notes - Subsequent TCU visit by Tracy Perdue NP ... [+] (F33.1) Major depressive disorder, recurrent episode, moderate (HC) (F41.1) Anxiety state, unspecified (F31.61) Bipolar I disorder, most recent episode (or current) mixed, mild (F03.90) Dementia, unspecified dementia severity, unspecified dementia type, unspecified whether behavioral, psychotic, or mood disturbance or anxiety (HC) Ataxia 04/20/2025 Overview (04/20/2025): History of trouble with balance and falls. Uses a cane when she leaves her apartment. Has a 4 wheeled walker at home but does not use it. Revisit this after rehab stay. Congestive heart failure 04/20/2025 Contusion of rib on left side 04/20/2025 COVID-19 04/20/2025 Overview (04/20/2025): - home test + on 06/25 Fracture of femoral neck, right 04/20/2025 Overview (04/20/2025): Date of surgery 02/06/2023, bipolar hemiarthroplasty. No complications. 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 Jones) Osteopenia of multiple sites 09/01/2019 Overview (09/01/2019): --moderate osteopenia hip; normal density of the spine Compression fracture of T6 vertebra with routine healing 08/23/2019 Ataxic gait 01/02/2014 ACP (advance care planning) 12/26/2013 Overview (05/30/2023): Patient has identified Specific Treatment Preferences: Yes Specific Treatment Preferences: a.) Code Status: DNR/ Do Not Attempt Resuscitation - Allow a Natural Patient has identified Health Care Agent(s): Yes Add Health Care Agents: Yes Health Care Agent(s): Savana reports any of her children may act as [facility] Today met with Savana and daughter Eve [phone] Patient has Advance Care Plan Documents (Health Care Directive, POLST): Yes Advance Care Plan Documents: POLST Form completed today Patient has identified Specific Treatment Preferences: Yes How have preferences been verified: verbal Specific Treatment Preferences: a.) Code Status: DNR/ Do Not Attempt Resuscitation - Allow a Natural b.) Goals of Treatment: ii. Selective Treatment: Use medical treatment, antibiotics, IV fluids and monitor tech as indicated. No intubation, advanced airway interventions, or mechanical ventilation. May consider less invasive airway support (e.g. CPAP, BiPAP). Transfer to hospital if indicated. Generally avoid the intensive care unit. All patients will receive comfort-focused treatments. TREATMENT PLAN: Provide basic medical treatments aimed at treating new or reversible illness. c.) Interventions and Treatments: i. Artificially Administered Nutrition and Hydration: - No artificial nutrition/hydration by tube ii. Antibiotics: - Oral antibiotics only (NO IV/IM) Falls 12/22/2013 Anxiety state, unspecified 08/01/2013 Bipolar I disorder, most rec ent episode (or current) mixed, mild 02/12/2013 Overview (12/08/2022): History multiple hospitalizations and ECT treatments until 2013. Major depressive disorder, recurrent episode, mo derate 07/24/2011 Microscopic colitis 05/18/2011 Overview (05/18/2011): Colonoscopy 04/2011 colitis repeat in 5 years Colon polyp 01/23/2011 Overview (01/23/2011): Colonoscopy March 2009, due in 3 years. Rectal incontinence 01/23/2011 HTN (hypertension) 07/08/2010 Overview (08/08/2019): Negative cardiac angiogram in 2006. Other and unspecified hyperlipidemia 03/29/2007 Macular degeneration (senile) of retina, unspeci fied 03/27/2007 Resolved Problems Problem Noted Date Diagnosed Date Resolved Date Acute hypoxemic respiratory failure 07/04/2023 10/01/2024 Hospice care patient 07/04/2023 025 Overview (07/04/2023): As of 07/03 due to heart failure from severe valvular diseae ACP (advance care planning) 12/26/2013 01/19/2014 Routine general medical exam ination at a health care facility 09/14/2008 12/08/2022 Overview (08/08/2019): Sees Dr. James Rick Family history of ischemic heart disease 08/09/2007 12/08/2022 Overview (08/09/2007): -Father dx w/ CAD in his 70s -Mother w/ CHF and at 82 or 83 Encounters Date Type Department Care Team Description 04/20/2025 3:00 PM CDT Ancillary Procedure [facility] [address] [place] [address] Arrived 04/20/2025 2:30 PM CDT Office Visit [address] [address] Frederic Hudson MD Fall (No er or xrays) 04/20/2025 8:15 AM CDT Home Care Visit [facility] [address] [place] [phone] Juan Carlos Ritchie SOLDERER TORCH - HOME VISIT 04/20/2025 Travel 04/20/2025 Home Care Visit [facility] [address] [place] [phone] Isabelle Vasquez, RN CARE COORDINATION 04/20/2025 Nurse Triage [facility] [address] [place] [address] Jesica Skelton MD Back Injury 04/18/2025 4:30 PM CDT Home Care Visit [facility] [address] [place] [phone] Viki Manjarrez LPN DIETARY SERVER - HOME VISIT 04/18/2025 Nurse Triage [facility] [address] [place] [address] Jesica Skelton MD Fall 04/16/2025 9:30 AM CDT Home Care Visit [facility] [address] [place] [phone] Viki Manjarrez LPN DIETARY SERVER - HOME VISIT 04/16/2025 7:30 AM CDT Home Care Visit [facility] [address] [place] [address] Juan Carlos Ritchie [employer]ORCH - HOME VISIT 04/14/2025 3:15 PM CDT Home Care Visit [facility] [address] [place] [phone] Lenora Gomez, PT PT - DISCIPLINE DISCHARGE 04/13/2025 7:15 AM CDT Home Care Visit [facility] [address] [place] [phone] Juan Carlos Ritchie [employer]ORCH - HOME VISIT 04/13/2025 Telephone [facility][Note 3] [address] [place] [address] Antionette Garcia, [facility] Late Cancel Appointment 04/09/2025 1:00 PM CDT Home Care Visit [facility] [address] [place] [phone] Viki Manjarrez LPN DIETARY SERVER - HOME VISIT 04/09/2025 10:30 AM CDT Phone Office Visit [facility] [address] [facility] [address] [place] [address] Vick Pan MD Medication Management; Phone Visit ([place]) 04/09/2025 8:15 AM CDT Home Care Visit [facility] [address] [place] [phone] Juan Carlos Ritchie SOLDERER TORCH - HOME VISIT 04/09/2025 Travel 04/07/2025 Telephone [facility] [address] [place] [address] Jesica Skelton MD Questions ([facility]) 04/06/2025 2:00 PM CDT Home Care Visit [facility] [address] [place] [phone] Lenora Gomez, PT PT - REASSESSMENT 04/06/2025 8:30 AM CDT Home Care Visit [facility] [address] [place] [phone] Juan Carlos Ritchie [employer]CH - HOME VISIT 04/06/[address] [facility] [address] [facility] [address] [place] [phone] Vick Pan MD Refill Request (Sertraline) 04/02/2025 8:45 AM CDT Home Care Visit [facility] [address] [place] [address] Juan Carlos Ritchie SOLDERER TORCH - HOME VISIT 04/01/2025 1:00 PM CDT Home Care Visit [facility] [address] [place] [address] Amena Babcock RN SN - HOME VISIT 04/01/2025 Orders Only [facility] [address] [facility] [place] [address] Jesica Skelton MD Lab 03/30/2025 2:00 PM CDT Home Care Visit [facility] [address] [place] [phone] Lenora Gomez, PT PT - HOME VISIT 03/30/2025 8:45 AM CDT Home Care Visit [facility] [address] [place] [address] Juan Carlos Ritchie [employer]CH - HOME VISIT 03/27/2025 Home Care Visit [facility] [address] [place] [address] Viki Manjarrez LPN CARE COORDINATION 03/26/2025 9:00 AM CDT Home Care Visit [facility] [address] [place] [address] Viki Manjarrez LPN DIETARY SERVER - HOME VISIT 03/26/2025 8:30 AM CDT Home Care Visit [facility] [address] [place] [address] Juan Carlos Ritchie SOL[employer]ORCH - HOME VISIT 03/26/2025 Orders Only [facility] [address] [place] [address] Jesica Skelton MD Lab (Home care) 03/23/2025 9:00 AM CDT Phone Office Visit [facility][Note 3] [address] [place] [address] Antionette Garcia, [facility] Individual Therapy; Trmt Plan 03/23/2025 8:00 AM CDT Home Care Visit [facility] [address] [place] [phone] Lenora Gomez, PT PT - HOME VISIT 03/23/2025 Travel 03/20/2025 2:00 PM CDT Home Care Visit [facility] [address] [place] [phone] Amena Babcock, RN SN - HOME VISIT 03/20/2025 9:30 AM CDT Home Care Visit [facility] [address] [place] [phone] Juan Carlos Ritchie [employer]CH - HOME VISIT 03/20/2025 Travel 03/17/2025 2:00 PM CDT Home Care Visit [facility] [address] [place] [phone] Lenora Gomez, PT PT - HOME VISIT 03/17/2025 8:45 AM CDT Office Visit [facility] [address] [place] [address] Jesica Skelton MD Hospital F/U (/ST DOD 03-13-25/HEART FAILURE EXACERBATION/Evonne y, Shira Moseley MD, today patient says she feels droopy patient says she feels blah//); Pelvis Pain/problem (RT SIDE PAIN IN HIP AND FROM FRACTURED PELVIS ) 03/17/2025 Travel 03/17/2025 Patient Outreach [facility] [address] [place] [address] Brigitte Omer, RN Primary RN Care Management; Hospital F/U (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, DOD 03/13/2025) 03/14/2025 9:00 AM CDT Home Care Visit [facility] [address] [place] [address] Karlene Ron, GETACHEW SN - INITIAL ASSESSMENT 03/13/2025 1:00 PM CDT Home Care Visit [facility] [address] [place] [phone] Lenora Gomez, PT PT - OASIS RESUMPTION OF CARE 03/11/2025 Home Care Visit [facility] [address] [place] [address] Isabelle Vasquez RN SN - OASIS TRANSFER 03/10/2025 Home Care Visit [facility] [address] [place] [address] Lenora Gomez, PT CARE TRANSITION NOTE 03/09/2025 12:34 PM CDT - 03/13/2025 10:12 AM CDT Hospital Encounter [facility] [address] [place] [address] Kyle Santos MD Kennedy Laliberte, Elizabeth Maureen, PA McCarthy, Shira Moseley MD Hospitalists, [facility] Dyspnea, unspecified type (Primary Dx); History of chronic CHF; Edema, unspecified type; 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 [address] [place] [address] Vick Pan MD Late Cancel Appointment (pt. in hospital ) 03/09/2025 Travel 03/09/2025 Nurse Triage [facility] [place] [address] Jesica Skelton MD [facility] 03/05/2025 2:00 PM CDT Home Care Visit [facility] [address] [place] [address] Lenora Gomez, PT PT - HOME VISIT 03/05/2025 11:15 AM CDT Orders Only [facility] [address] [place] [address] Lab 03/05/2025 10:50 AM CDT Office Visit [facility] [address] [place] [address] Gail Villaseñor NP Edema 03/05/2025 Travel 03/03/2025 10:00 AM CDT Home Care Visit [address] [phone] Lenora Gomez, PT PT - OASIS START OF CARE 03/03/2025 9:00 AM CDT Phone Office Visit [facility][Note 3] [address] [place] [address] Antionette Garcia, [facility] Individual Therapy; Telehealth; Mental Health Intake 03/03/2025 Telephone [facility] [address] [place], [place] [phone] Lenora Gomez, PT Home Care (Requesting ongoing PT homecare orders) 03/03/2025 Plan of Care Documentation [facility] [address] [place] [phone] 03/03/2025 Travel 03/02/2025 Home Care Visit [facility] [address] [place] [phone] Isabelle Vasquez, RN CARE COORDINATION 02/26/2025 2:00 PM CDT Office Visit [facility] [address] [place] [address] Jesica Skelton MD Follow Up ([facility] ER Fall) 02/26/2025 Telephone [facility] [address] [place] [address] Jesica Skelton MD Follow Up (Bone density treatment ) 02/26/2025 E-Consult [facility] [address] [facility] [address] [place] [address] Judy Dahl, 02/26/2025 Travel 02/21/2025 2:15 PM CDT - 02/21/2025 5:09 PM CDT Emergency [facility] [address] [facility] [place] [address] Foster Dominique MD Other closed fracture of right pubis, initial encounter (HC) (Primary Dx); Urinary incontinence, unspecified type Discharge Disposition: Home Self Care 02/21/2025 Travel 02/10/2025 Telephone [facility] [address] [place] [phone] Anna Rodriguez, [facility] Care Coordination 02/05/2025 12:00 PM CDT Telemedicine [facility] [address] [place] [address] Vick Pan MD Medication Management; Telehealth ([place]) 02/05/2025 Travel 02/04/[address] [facility] [address] [place] [phone] Vick Pan MD Refill Request (Sertraline) 01/28/[address] [facility] [address] [place] [address] Vick Pan MD Prior Authorization (Wellbutrin XL 300 mg Extended-Release tablet BIMAL APPROVED October 30, 2024 to January 28, 2026) 01/18/[address] [facility] [address] [place] [phone] Vick Pan MD Refill Request (Topiramate) from Last 3 Months Immunizations Immunization Administration Dates Next Due COVID-19 VACCINE SPIKEVAX (M ODERNA 50MCG/0.5ML) 12YO+ PFS 10/01/2024 COVID-19 vaccine (Moderna 10 0mcg/0.5mL) PF, MDV 12/06/2020,11/08/2020 Influenza, High-dose Inactivated 08/20/2018 Influenza, High-dose Quadriv alent Inactivated 08/10/2022,08/08/2021,07/29/2020 Influenza, IIV3 (Age >=3 years) 07/18/2012,09/14,08/16/2007 Influenza, Inactivated IIV3 (Age 65+ Years) Preserv Free 10/01/2024,08/22/2019 Pneumococcal Conj 20-valent (Prevnar 20) 023 Pneumococcal Poly,23-Valent (Pneumovax) 08/16/20 07 Pneumococcal conj 13-Valent (Prevnar 13) 016 Td (Age >=7 Years) 08/29/2005 Tdap 03/21/2012 Family History Medical History Relation Name Comments Allergies Brother Diabetes Daughter Dementia Father OF alzheim ers Heart Disease Father Psychiatric illness Maternal Aunt DEPRESS ION No Known Problems Maternal Uncle Heart Disease Mother of CHF No Known Problems Paternal Aunt Alcohol/Drug Paternal Uncle No Known Problems Sister No Known Problems Son Relation Name Status Comments Brother Alive Daughter Alive Father Maternal Aunt Maternal Uncle Mother Paternal Aunt Paternal Uncle Sister Alive Son Alive Social History Tobacco Use Types Packs/Day Years Used Date Smoking Tobacco: Never Cigarettes 0.1 1 - 10/22/1960 Smokeless Tobacco: Never Tobacco Cessation:Counseling Given: Not Answered Alcohol Use Standard Drinks/Week Comments Not Currently 0 (1 standard drink = 0.6 oz pur e alcohol) PHQ-2 Answer Date Recorded PHQ-2 TOTAL SCORE 6 04/09/2025 Social Connections Answer Date Recorded Do you often feel lonely or isolated from those around you? 0 03/09/2025 Financial Resource Strain Answer Date R ecorded Difficulty of Paying Living Expenses 3 10/01/2024 Difficulty of Paying Living Expenses Not on file 10/01/2024 Food Insecurity Answer Date Recorded Do you worry your food will run out before you are able to buy more? 1 03/09/2025 Transportation Needs Answer Date Record ed Does lack of transportation keep you from medica l appointments? 1 03/09/2025 Does lack of transportation keep you from work, meetings or getting things that you need? 1 03/09/2025 Housing Stability Answer Date Recorded What is your housing situation today? 1 03/09/2025 Interpersonal Safety Answer Date Record ed Are you being hit, kicked, p ushed or yelled at (see row info)? No 03/09/2025 Interpersonal Safety Abuse 12 - 18 Not on file 03/09/2025 Interpersonal Safety Ambulatory Vulnerability No t on file 03/09/2025 Utilities Answer Date Recorded Do you have trouble paying f or utilities (for example, heat, electricity, water, phone)? 1 03/09/2025 Comments No Sex and Gender Information Value Date Recorded Sex Assigned at Not on file Legal Sex Female 6:22 AM [employer] Gender Identity Not on file Sexual Orientation Not on file Obstetrics History Last Filed Vital Signs Vital Sign Reading Time Taken Comments Blood Pressure 132/80 04/20/2025 2:37 PM CDT Pulse 64 04/20/2025 2:37 PM CDT Temperature 36.5 C (97.7 F) 04/18/2025 4:38 PM CDT Respiratory Rate 16 04/18/2025 4:38 PM CDT Oxygen Saturation 96% 04/18/2025 4:38 PM CDT Inhaled Oxygen Concentration - - Weight 53.1 kg (117 lb) 04/20/2025 2:37 PM CDT Height 175.3 cm (5' 9) 03/09/2025 3:23 PM CDT Body Mass Index 17.28 03/09/2025 3:23 PM CDT Plan of Treatment Upcoming Encounters Date Type Department Care Team (Late st Contact Info) Description 04/23/2025 4:00 AM CDT [facility] [address] [place] [address] Amena Babcock RN 04/23/2025 7:45 AM CDT Home Care Visit [facility] [address] [place] [address] Jose MiguelJuan Carlos mann L 04/27/2025 4:00 AM CDT Home Care Visit [facility] [address] [place] [address] ErmaJuan Carlos L 04/30/2025 4:00 AM CDT Appointment [facility] [address] [place] [address] Amena Babcock RN 04/30/2025 7:00 AM CDT Home Care Visit [facility] [address] [place] [address] ErmaJuan Carlos Lina 05/07/2025 10:00 AM CDT Phone Office Visit [facility] [address] [facility] [address] Jose Carlos [address] [place] [phone] Vick Pan MD [address] [facility] [address] [facility] [address] [place], [place] [phone] 05/12/2025 10:00 AM CDT Phone Office Visit [facility][Note 3] [address] [place], [place] [address] Antionette Garcia, [facility] [address] [place], [place] [phone] Health Maintenance Due Date Last Done Comments Zoster (shingles) series for age 50+ (1 of 2) 1991 RSV vaccine for adults or (1 - 1-dose 75+ series) 02/29/2016 Tetanus booster 03/21/2022 03/21/2012, 08/29/2005 COVID-19 vaccine series ( season) 2025 10/01/2024, 12/06/2020, 11/08/2020 Medicare Wellness for age 65+ 10/02/2025 10/01/2024, 12/08/2022 BMI (ht and wt on same day) for age 18+ 11/10/2025 11/10/2024, 12/08/2022, 09/19/2019, Additional history exists Depression screening for age 12+ 04/09/2026 04/09/2025, 03/23/2025, 03/03/2025, Additional history exists Tdap Completed 03/21/2012 Pneumococcal series for age 50+ Completed 05/28/2023, 12/02/2015, 08/16/2007 Influenza Vaccine Completed 10/01/2024, , 08/20/2018, Additional history exists DEXA/DXA scan for age 65+ Completed 2024, 08/27/2019, 07/30/2007 Hepatitis B series for 19+ Aged Out N o longer eligible based on patient's age to complete this topic Procedures Procedure Name Priority Date/Time Associated Diagnosis Comments CREATININE Routine 04/01/2025 1:28 PM CDT Stage 3b chronic kidney disease (HC) BASIC METABOLIC PANEL Routine 03/17/2025 9:28 AM CDT 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 (HC) PLATELET COUNT Early AM 03/13/2025 6:30 AM CDT HEMOGLOBIN Early AM 03/13/2025 6:30 AM CDT WHITE BLOOD COUNT Early AM 03/13/2025 6:3 0 AM CDT CREATININE Early AM 03/13/2025 6:30 AM CDT SODIUM Early AM 03/13/2025 6:30 AM CDT POTASSIUM Early AM 03/13/2025 6:30 AM CDT MAGNESIUM Early AM 03/13/2025 6:30 AM CDT CREATININE Early AM 03/12/2025 6:34 AM CDT POTASSIUM Early AM 03/12/2025 6:34 AM CDT MAGNESIUM Early AM 03/12/2025 6:34 AM CDT PLATELET COUNT Timed 03/12/2025 6:34 AM CDT BASIC METABOLIC PANEL Early AM 03/11/2025 6:22 AM CDT CBC W PLT NO DIFF Early AM 03/11/2025 6:2 2 AM CDT MAGNESIUM Early AM 03/11/2025 6:22 AM CDT PROCALCITONIN Early AM 03/11/2025 6:21 AM CDT URINALYSIS MICROSCOPIC Timed 5:19 PM CDT UA W/ SEDIMENT EXAM REFLEXED PER CRITERIA Today 03/10/2025 5:19 PM CDT XR CHEST 2 VIEWS PA AND LATERAL STAT 03/10/2025 12:06 PM CDT MAGNESIUM Early AM 03/10/2025 6:14 AM CDT CBC W PLT NO DIFF Early AM 03/10/2025 6:1 4 AM CDT BASIC METABOLIC PANEL Early AM 03/10/2025 6:14 AM CDT POTASSIUM Today 03/09/2025 9:40 PM CDT MAGNESIUM Today 03/09/2025 9:40 PM CDT TROPONIN T (HS) ONE TIME Timed 03/09/2025 2:43 PM CDT XR CHEST 2 VIEWS PA AND LATERAL STAT 03/09/2025 1:30 PM CDT EKG 12 LEAD UNIT PERFORMED STAT 03/09/2025 12:55 PM CDT HEPATIC FUNCTION PANEL STAT 12:54 PM CDT TROPONIN T (HS) ACUTE W/2HR REFLEX STAT 03/09/2025 12:54 PM CDT PRO-BNP STAT 03/09/2025 12:54 PM CDT CBC W PLT NO DIFF STAT 03/09/2025 12: 54 PM CDT BASIC METABOLIC PANEL STAT 03/09/2025 12:54 PM CDT SCAN-CARDIAC STRIP 03/09/2025 12 :00 AM CDT SCAN-CARDIAC STRIP 03/09/2025 12 :00 AM CDT SCAN-CARDIAC STRIP 03/09/2025 12 :00 AM CDT SCAN-CARDIAC STRIP 03/09/2025 12 :00 AM CDT SCAN-CARDIAC STRIP 03/09/2025 12 :00 AM CDT IMMUNOFIXATION,SERUM Routine 03/05/2025 1:00 PM CDT Osteopenia of multiple sites Compression fracture of T6 vertebra with routine healing Fracture of superior rim of right pubis, subsequent encounter for fracture with routine healing PROTEIN ELP SERUM W REFLEX Routine 03/05/2025 1:00 PM CDT Osteopenia of multiple sites Compression fracture of T6 vertebra with routine healing Fracture of superior rim of right pubis, subsequent encounter for fracture with routine healing VITAMIN D 25 (DEFICIENCY) Routine 03/05/2025 12:57 PM CDT Osteopenia of multiple sites Compression fracture of T6 vertebra with routine healing Fracture of superior rim of right pubis, subsequent encounter for fracture with routine healing TSH WITH REFLEX Routine 03/05/2025 12:57 PM CDT Osteopenia of multiple sites Compression fracture of T6 vertebra with routine healing Fracture of superior rim of right pubis, subsequent encounter for fracture with routine healing Anemia due to other cause, not classified PTH,INTACT Routine 03/05/2025 12:57 PM CDT Osteopenia of multiple sites Compression fracture of T6 vertebra with routine healing Fracture of superior rim of right pubis, subsequent encounter for fracture with routine healing CELIAC CASCADE PANEL Routine 03/05/2025 12:57 PM CDT Osteopenia of multiple sites Compression fracture of T6 vertebra with routine healing Fracture of superior rim of right pubis, subsequent encounter for fracture with routine healing CBC WITH AUTO DIFFERENTIAL Routine 03/05/2025 12:54 PM CDT Cellulitis of skin XR PELVIS 2 VIEWS STAT 02/21/2025 4:2 7 PM CDT BASIC METABOLIC PANEL STAT 02/21/2025 4:13 PM CDT CBC W PLT NO DIFF STAT 02/21/2025 4:1 3 PM CDT UA W/ SEDIMENT EXAM REFLEXED PER CRITERIA STAT 02/21/2025 3:[address] HEAD BRAIN WO STAT 02/21/2025 3:00 PM CDT XR HIP 2 OR 3 VIEWS W PELVIS RIGHT STAT 02/21/2025 2:56 PM CDT XR DXA BONE DENSITY 2 SITES AXIAL Routine 11/04/2024 10:07 AM [employer] Post-menopausal from Last 3 Months or Most Recently Relevant to Health Maintenance Results * (ABNORMAL) CREATININE (04/01/2025 1:28 PM CDT) Only the most recent of3 resultswithin the time period is included. eGFR 45(L) >90 mL/min/1.7 3m2 04/01/2025 2:49 PM CDT [facility] Comment:As of 2022, eG FR is calculated by the CKD-EPI creatinine equation without race adjustment. eGFR can be influenced by muscle mass, exercise, and diet. The reported eGFR is an estimation only and is only applicable if the renal function is stable. CREATININE 1.19(H) 0.50 - 0.90 mg/dL 04/01/2025 2:49 PM CDT [facility] Blood BLOOD SPECIMEN / Unknown Butterfly / Unknown 04/01/2025 1:28 PM CDT 04/01/2025 2:30 PM CDT us Jesica Skelton MD CHEMISTRY Final Re sult [facility] [address] [place], [place] [phone] * (ABNORMAL) BASIC METABOLIC PANEL (03/17/2025 9:28 AM CDT) Only the most recent of5 resultswithin the time period is included. GLUCOSE 82 65 - 99 mg/dL [facility] Comment: Fasting reference interval UREA NITROGEN (BUN) 43(H) 7 - 25 mg/dL [facility] CREATININE 1.34(H) 0.60 - 0.95 mg/dL [facility] EGFR 39(L) > OR = 60 mL/min/1.7 3m2 [facility] BUN/CREATININE RATIO 32(H) 6 - 22 (calc) [facility] SODIUM 141 135 - 146 mmol/L [facility] POTASSIUM 4.0 3.5 - 5.3 mmol/L [facility] CHLORIDE 104 98 - 110 mmol/L [facility] CARBON DIOXIDE 30 20 - 32 mmol/L [facility] ELECTROLYTE BALANCE 7 7 - 17 mmol/L (calc) [facility] CALCIUM 8.8 8.6 - 10.4 mg/dL [facility] Blood BLOOD SPECIMEN / Unknown 03/17/2025 9:28 AM CDT 03/17/2025 9:29 AM CDT Narrative [facility] - 03/18/2025 5:14 AM CDT FASTING:NO FASTING: NO Jesica Skelton MD CHEMISTRY Final Re sult Performing Organization Address City/[facility]/ZIP Co de Phone Number [facility] [address] [place] [address], [place] [phone] [facility] [address] [place] [address] * (ABNORMAL) PLATELET COUNT (03/13/2025 6:30 AM CDT) Only the most recent of2 resultswithin the time period is included. PLATELET COUNT 136(L) 140 - 440 thou/cu mm 03/13/2025 6:[address] [facility] MPV 10.3 6.5 - 11.0 fL 03/13/2025 6:[address] [facility] Blood BLOOD SPECIMEN / Unknown Venipuncture / Unknown 03/13/2025 6:30 AM CDT 03/13/2025 6:35 AM CDT us Shira Hughes MD HEMATOLOGY Final Res ult [address] [address] * WHITE BLOOD COUNT (03/13/2025 6:30 AM CDT) WHITE BLOOD COUNT 5.3 4.5 - 11.0 thou/cu mm 03/13/2025 6:[address] [facility] NRBC 0.0 % 03/13/2025 6:[address] [facility] ABS NRBC 0.0 thou /cu mm 03/13/2025 6:[address] [facility] Blood BLOOD SPECIMEN / Unknown Venipuncture / Unknown 03/13/2025 6:30 AM CDT 03/13/2025 6:35 AM CDT us Shira Hughes MD HEMATOLOGY Final Res ult Performing Organization Address [facility] de Phone Number [address] [address] * HEMOGLOBIN (03/13/2025 6:30 AM CDT) HEMOGLOBIN 12.8 12.0 - 16.0 g/dL 03/13/2025 6:[address] [facility] MCV 92 80 - 100 fL 03/13/2025 6:[address] [facility] Blood BLOOD SPECIMEN / Unknown Venipuncture / Unknown 03/13/2025 6:30 AM CDT 03/13/2025 6:35 AM CDT us Shira Hughes MD HEMATOLOGY Final Res ult Performing Organization Address [facility] de Phone Number [address] [address] * SODIUM (03/13/2025 6:30 AM CDT) SODIUM 141 136 - 145 mmol/L 03/13/2025 6:[address] [facility] Blood BLOOD SPECIMEN / Unknown Venipuncture / Unknown 03/13/2025 6:30 AM CDT 03/13/2025 6:35 AM CDT us Shira Hughes MD CHEMISTRY Final Res ult Performing Organization Address [facility] de Phone Number [address] [address] * POTASSIUM (03/13/2025 6:30 AM CDT) Only the most recent of3 resultswithin the time period is included. POTASSIUM 3.7 3.5 - 5.1 mmol/L 03/13/2025 6:[address] [facility] Blood BLOOD SPECIMEN / Unknown Venipuncture / Unknown 03/13/2025 6:30 AM CDT 03/13/2025 6:35 AM CDT us Shira Hughes MD CHEMISTRY Final Res ult Performing Organization Address City/[facility]/ZIP Co de Phone Number [address] [address] * MAGNESIUM (03/13/2025 6:30 AM CDT) Only the most recent of5 resultswithin the time period is included. Pathologist [facility] MAGNESIUM 2.3 1.6 - 2.4 mg/dL 03/13/2025 6:[address] [facility] Blood BLOOD SPECIMEN / Unknown Venipuncture / Unknown 03/13/2025 6:30 AM CDT 03/13/2025 6:35 AM CDT Shira Hughes MD CHEMISTRY Final Res ult Performing Organization Address [facility] de Phone Number [address] [address] * (ABNORMAL) CBC W PLT NO DIFF (03/11/2025 6:22 AM CDT) Only the most recent of4 resultswithin the time period is included. [facility] WHITE BLOOD COUNT 4.3(L) 4.5 - 11.0 thou/cu mm 03/11/2025 7:[address] [facility] RED BLOOD COUNT 3.94(L) 4.00 - 5.20 mil/cu mm 03/11/2025 7:[address] [facility] HEMOGLOBIN 11.9(L) 12.0 - 16.0 g/dL 03/11/2025 7:[address] [facility] HEMATOCRIT 36.5 33.0 - 51.0 % 03/11/2025 7:[address] [facility] MCV 93 80 - 100 fL 03/11/2025 7:[address] [facility] MCH 30.2 26.0 - 34.0 pg 03/11/2025 7:[address] [facility] MCHC 32.6 32.0 - 36.0 g/dL 03/11/2025 7:[address] [facility] RDW 17.5(H) 11.5 - 15.5 % 03/11/2025 7:[address] [facility] PLATELET COUNT 141 140 - 440 thou/cu mm 03/11/2025 7:[address] [facility] MPV 10.9 6.5 - 11.0 fL 03/11/2025 7:[address] [facility] NRBC 0.0 % 03/11/2025 7:[address] [facility] ABS NRBC 0.0 thou /cu mm 03/11/2025 7:[address] [facility] Blood BLOOD SPECIMEN / Unknown Butterfly / Unknown 03/11/2025 6:22 AM CDT 03/11/2025 6:59 AM CDT Isabelle FAULKNER [place] [address] * PROCALCITONIN (03/11/2025 6:21 AM CDT) PROCALCITONIN 0.11 ng/ml 03/11/2025 7:[address] [facility] Blood BLOOD SPECIMEN / Unknown Butterfly / Unknown 03/11/2025 6:21 AM CDT 03/11/2025 6:[address] [facility] - 03/11/2025 7:41 AM CDT Procalcitonin for initial assessment of Lower Respiratory Tract Infection: Results Interpretation <0.10 ng/mL Antibiotic therapy strongly discoraged. Indicates absent of bacterial infection. * 0.10 - 0.25 ng/mL Antibiotic therapy discouraged. Bacterial infection unlikely. * 0.26 - 0.50 ng/mL Antibiotic therapy encouraged. Bacterial infection possible. >0.50 ng/mL Antibiotic therapy strongly encouraged. Suggestive of presence of bacterial infection. *Antibiotic therapy should be considered regardless of PCT result if the patient is clinically unstable, is at high risk for adverse outcome, has strong evidence of bacterial pathogen, or the clinical context indicates antibiotic therapy is warranted. If antibiotics are withheld, reassess if symptoms persist/worsen and/or repeat PCT measurement within 6-24 hours. In order to assess treatment success and to support a decision to discontinue antibiotic therapy, follow up samples should be tested once every 1-2 days, based upon physician discretion taking into account patient's evolution and progress. Procalcitonin for initial assessment of severe sepsis risk: Results Interpretation <0.5 ng/ml A PCT level below 0.5 ng/ml on the first day of ICU admission is associated with a low risk for progression to severe sepsis and/or septic shock. > 2.0 ng/mL A PCT level above 2.0 ng/mL on the first day of ICU admission is associated with a high risk for progression to severe sepsis and/or septic shock. Note: Concentrations < 0.5 ng/mL do not exclude an infection, on account of localized infections (without systemic signs) which can be associated with such low concentrations, or a systemic infection in its initial stages(< 6 hours). Furthermore, increased procalcitonin can occur without infection. PCT concentrations between 0.5 and 2.0 ng/mL should be interpreted taking into account the patient's history. It is recommended to retest PCT within 6-24 hours if any concentrations < 2 ng/mL are obtained. Isabelle FAULKNER SEND OUTS Final Result [address] [address] * URINALYSIS MICROSCOPIC (03/10/2025 5:19 PM CDT) RBC 0-2 0-2, None Seen /HPF 03/10/2025 5:[address] [facility] WBC 0-2 0-2, 3-5, None Seen /HPF 03/10/2025 5:[address] [facility] BACTERIA Few None Seen, Rare, Few Bacteria/H PF 03/10/2025 5:[address] [facility] EPITHELIAL CELLS Few None Seen, Few Epi/HPF 03/10/2025 5:[address] [facility] Urine URINE SPECIMEN / Unknown Non-Blood / Unknown 03/10/2025 5:19 PM CDT 03/10/2025 5:24 PM CDT Isabelle FAULKNER URINE Final Result [facility] [address] [place] [address] * (ABNORMAL) UA W/ SEDIMENT EXAM REFLEXED PER CRITERIA (03/10/2025 5:19 PM CDT) Only the most recent of2 resultswithin the time period is included. COLOR Yellow Yellow Color 03/10/2025 5:[address] [facility] CLARITY Clear Clear Clarity 03/10/2025 5:[address] [facility] SPECIFIC GRAVITY,URINE 1.015 1.010, 1.015, 1.020, 1.025 03/10/2025 5:[address] [facility] PH,URINE 6.0 6.0, 7.0, 8.0, 5.5, 6.5, 7.5, 8.5 03/10/2025 5:[address] [facility] UROBILINOGEN,Q UALITATIVE Normal Normal EU/dl 03/10/2025 5:[address] [facility] PROTEIN, URINE Negative Negative mg/dL 03/10/2025 5:[address] [facility] GLUCOSE, URINE Negative Negative mg/dL 03/10/2025 5:[address] [facility] KETONES,URINE Negative Negative mg/dL 03/10/2025 5:[address] [facility] BILIRUBIN,URIN E Negative Negative 03/10/2025 5:[address] [facility] OCCULT BLOOD,URINE Trace(A) Negative 03/10/2025 5:[address] [facility] NITRITE Negative Negative 03/10/2025 5:[address] [facility] LEUKOCYTE ESTERASE Negative Negative 03/10/2025 5:[address] [facility] Urine URINE SPECIMEN / Unknown Non-Blood / Unknown 03/10/2025 5:19 PM CDT 03/10/2025 5:24 PM CDT Isabelle FAULKNER URINE Final Result [address] [address] * XR CHEST 2 VIEWS PA AND LATERAL (03/10/2025 12:06 PM CDT) Only the most recent of2 resultswithin the time period is included. Anatomical Region Laterality Modality CHEST, THORAX, Lung, HEART Digit al Radiography 03/10/2025 12:3 0 PM CDT Narrative 03/10/2025 12:30 PM CDT For Patients: As a result of the Cures Act, medical imaging exams and procedure reports are released immediately into your electronic medical record. You may view this report before your referring provider. If you have questions, please contact your health care provider. Indication: Shortness of breath Comparison: Two-view chest March 09, 2025 Technique: PA and lateral views of the chest Findings: Persistent left basilar pleural effusion with somewhat improved edema from previous exam. No pneumothorax. Stable cardiac silhouette with aortic tortuosity and demonstration of a small hiatal hernia. 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 Impression: 1. Persistent left basilar pleural effusion with adjacent compressive atelectasis versus infiltrates. Improved pulmonary edema from previous exam with decreased interstitial markings. Dictated by Michael Huber MD @ 03/10/2025 12:30:18 PM (Electronically Signed) Procedure Note Michael Huber MD - 03/10/2025 For Patients: As a result of the Cures Act, medical imagingexams and procedure reports are released immediately into your electronicmedical record. You may view this report before your referring provider.If you have questions, please contact your health care provider. Indication: Shortness of breath Comparison: Two-view chest March 09, 2025 Technique: PA and lateral views of the chest Findings: Persistent left basilar pleural effusion with somewhat improved edema fromprevious exam. No pneumothorax. Stable cardiac silhouette with aortic tortuosity and demonstration of asmall hiatal hernia. Old left-sided rib deformities are again appreciated as well as likelychronic nonunion proximal right humeral fracture. Impression: 1. Persistent left basilar pleural effusion with adjacent compressiveatelectasis versus infiltrates. Improved pulmonary edema from previousexam with decreased interstitial markings. Dictated by Michael Huber MD @ 03/10/2025 12:30:18 PM (Electronically Signed) [place] [facility] Final Result * (ABNORMAL) TROPONIN T (HS) ONE TIME (03/09/2025 2:43 PM CDT) TROPONIN T HS 43(H) 6-10 ng/L ng/L 03/09/2025 3:[address] [facility] Blood BLOOD SPECIMEN / Unknown Line/Port / Unknown 03/09/2025 2:43 PM CDT 03/09/2025 2:47 PM CDT Kyle Santos MD [place] [address] * EKG 12 LEAD UNIT PERFORMED (03/09/2025 12:55 PM CDT) Interpretation Sinus rhythm with short UT with Premature supraventricular complexes Left ventricular hypertrophy with repolarization abnormality ( Sokolow-Michael , [place] product , Romhilt-Cason ) Abnormal ECG BEYOND NOW Ventricular Rate 68 BPM BEYOND NOW Atrial Rate 68 BPM BEYOND NOW P-R Interval 80 ms BEYOND NOW QRS Duration 112 ms BEYOND NOW QT 400 ms BEYOND NOW QTc 425 ms BEYOND NOW P [place] 3 degrees BEYOND NOW R [place] -7 degrees BEYOND NOW T [place] 147 degrees BEYOND NOW 03/09/2025 12:5 5 PM CDT 03/18/2025 4:44 AM CDT Kyle Santos MD EKG ORD Final Res ult BEYOND NOW [place] * (ABNORMAL) TROPONIN T (HS) ACUTE W/2HR REFLEX (03/09/2025 12:54 PM CDT) TROPONIN T HS 45(H) 6-10 ng/L ng/L 03/09/2025 1:[address] [facility] Blood BLOOD SPECIMEN / Unknown IV Start / Unknown 03/09/2025 12:54 PM CDT 03/09/2025 12:[address] [facility] - 03/09/2025 1:39 PM CDT hs-cTnT (Elecsys Troponin T Gen 5) concentration (s) above the sex-specific 99th percentile (16 ng/L or greater for males or 11 ng/L or greater for females) are indicative of myocardial injury. If initial hs-cTnT <=100 ng/L at presentation, a 0h/2h ABSOLUTE (ng/L) delta change (rising or falling) of >=10 ng/L suggests a significant change, whereas a 0h/2h delta change <=3 ng/L suggests no significant change. If initial hs-cTnT >100 ng/L at presentation, a 0h/2h/ RELATIVE (percent, %) delta change of 20% is suggested to distinguish patients with acute vs. chronic myocardial injury. There are multiple etiologies that can cause hs-cTnT increases above the 99th percentile (myocardial injury) other than acute myocardial infarction. Clinical context and careful clinical evaluation are critical for diagnosis and risk-stratification. The diagnosis of acute myocardial infarction requires a rising and/or falling pattern in hs-cTnT concentrations with at least one value above the sex-specific 99th percentile PLUS at least one of the following clinical criteria: ischemic symptoms, new or presumed new significant ST-T wave changes or new LBBB, development of pathological Q waves, imaging evidence of new loss of viable myocardium or new regional wall motion abnormality, or identification of intracoronary atherothrombosis or an acute angiographic culprit on coronary angiography. In appropriate low-risk patients with a non-ischemic electrocardiogram without active chest pain with a symptom onset >3-hours without recurrence, a single initial hs-cTnT<6 ng/L identifies patient with a very low risk in emergency department patient population. Kyle Santos MD CHEMISTRY Final Res ult Performing Organization Address [facility] Co de Phone Number [address] [address] * (ABNORMAL) PRO-BNP (03/09/2025 12:54 PM CDT) PRO-BNP 9,732(H) <450 pg/mL 03/09/2025 1:[address] [facility] Blood BLOOD SPECIMEN / Unknown IV Start / Unknown 03/09/2025 12:54 PM CDT 03/09/2025 12:[address] [facility] - 03/09/2025 1:41 PM CDT The following cut-points have been suggested for the use of proBNP for the diagnostic evaluation of heart failure (HF) in patient with acute dyspnea. Patients with eGFR >= 60 Diagnosis (rule in CHF) <50 Years Old 450 pg/mL 50 - 75 Years Old 900 pg/mL >75 Years Old 1800 pg/mL Exclusion (rule out CHF) Age Independent 300 pg/mL A cutoff of 1200 pg/mL for patients with an eGFR <60 yields a diagnostic sensitivity of 89% and specificity of 72% for acute congestive heart failure. Kyle Santos MD SEND OUTS Final Res ult Performing Organization Address [facility] de Phone Number [address] [address] * (ABNORMAL) HEPATIC FUNCTION PANEL (03/09/2025 12:54 PM CDT) ALBUMIN 3.6(L) 4.0 - 4.9 g/dL 03/09/2025 1:[address] [facility] PROTEIN,TOTAL 6.0 6.0 - 8.0 g/dL 03/09/2025 1:[address] [facility] BILIRUBIN,TOTAL 0.3 0.0 - 1.2 mg/dL 03/09/2025 1:[address] [facility] BILIRUBIN,DIRECT 0.1 0.0 - 0.2 mg/dL 03/09/2025 1:[address] [facility] BILIRUBIN,INDIRE CT 0.2 0.2 - 0.8 mg/dL 03/09/2025 1:[address] [facility] ALK PHOSPHATASE 87 35 - 104 IU/L 03/09/2025 1:[address] [facility] ALT (SGPT) 19 10 - 35 IU/L 03/09/2025 1:[address] [facility] AST (SGOT) 30 10 - 35 IU/L 03/09/2025 1:[address] [facility] Blood BLOOD SPECIMEN / Unknown IV Start / Unknown 03/09/2025 12:54 PM CDT 03/09/2025 12:59 PM CDT us Kyle Santos MD CHEMISTRY Final Res ult [address] [address] * SCAN-CARDIAC STRIP (03/09/2025 12:00 AM CDT) Narrative 03/09/2025 12:00 AM CDT Ordered by an unspecified provider. us Other Clinical Staff OTHER Final Resul t * SCAN-CARDIAC STRIP (03/09/2025 12:00 AM CDT) Narrative 03/09/2025 12:00 AM CDT Ordered by an unspecified provider. us Other Clinical Staff OTHER Final Resul t * SCAN-CARDIAC STRIP (03/09/2025 12:00 AM CDT) Narrative 03/09/2025 12:00 AM CDT Ordered by an unspecified provider. us Other Clinical Staff OTHER Final Resul t * SCAN-CARDIAC STRIP (03/09/2025 12:00 AM CDT) Narrative 03/09/2025 12:00 AM CDT Ordered by an unspecified provider. us Other Clinical Staff OTHER Final Resul t * SCAN-CARDIAC STRIP (03/09/2025 12:00 AM CDT) Narrative 03/09/2025 12:00 AM CDT Ordered by an unspecified provider. us Other Clinical Staff OTHER Final Resul t * (ABNORMAL) PROTEIN ELP SERUM W REFLEX (03/05/2025 1:00 PM CDT) ELP,ALBUMIN 3.56 3.31 - 5.31 g/dL 03/10/2025 5:00 PM CDT [facility] ELP,ALPHA 1 0.38 0.19 - 0.42 g/dL 03/10/2025 5:00 PM CDT [facility] ELP,ALPHA 2 0.51 0.44 - 1.03 g/dL 03/10/2025 5:00 PM CDT [facility] ELP,GAMMA 0.74 0.59 - 1.46 g/dL 03/10/2025 5:00 PM CDT [facility] ELP,BETA 0.71 0.52 - 1.05 g/dL 03/10/2025 5:00 PM CDT [facility] ELP INTERP,SERUM Normal electrophoretic pattern. No monoclonal protein detected. Interpreted and electronically signed by: Claudia Cornejo MD 03/10/2025 5:00 PM CDT [facility] PROTEIN,TOTA L 5.9(L) 6.0 - 8.0 g/dL 03/10/2025 5:00 PM CDT [facility] Blood BLOOD SPECIMEN / Unknown [facility] / Unknown 03/05/2025 1:00 PM CDT 03/05/2025 1:06 PM CDT Jesica Skelton MD CHEMISTRY Final Re sult Performing Organization Address [facility]/ZIP Co de Phone Number [facility] [address] [place] [address], [place] * IMMUNOFIXATION,SERUM (03/05/2025 1:00 PM CDT) Pathologist [facility] IGG 794.57 610.30 - 1,616.00 mg/dL 03/10/2025 5:00 PM CDT [facility] IGA 239.10 84.50 - 499.00 mg/dL 03/10/2025 5:00 PM CDT [facility] IGM 51.37 35.00 - 242.00 mg/dL 03/10/2025 5:00 PM CDT [facility] IFIX INTERP,SERUM Immunofixation on serum shows no monoclonal protein detected and no free light chains detected. Interpreted and electronically signed by: Claudia Cornejo MD 03/10/2025 5:00 PM CDT [facility] Blood BLOOD SPECIMEN / Unknown [facility] / Unknown 03/05/2025 1:00 PM CDT 03/05/2025 1:06 PM CDT Jesica Skelton MD CHEMISTRY Final Re sult Performing Organization Address [facility]/ZIP Co de Phone Number [facility] [address] [place] [phone], [place] * CELIAC CASCADE PANEL (03/05/2025 12:57 PM CDT) Pathologist [facility] CELIAC DISEASE COMPREHENSIVE PANEL INTERPRETATION [facility] Comment: No serological evidence of celiac disease. tTG IgA may normalize in individuals with celiac disease who maintain a gluten-free diet. Consider HLA DQ2 and DQ8 testing to rule out celiac disease. Celiac disease is extremely rare in the absence of DQ2 or DQ8. TISSUE TRANSGLUTAMINASE AB, IGA <1.0 U/mL [facility] Comment: Value Interpretation ----- <15.0 Antibody not detected > or = 15.0 Antibody detected IMMUNOGLOBULIN A 242 70 - 320 mg/dL [facility] Blood BLOOD SPECIMEN / Unknown 03/05/2025 12:57 PM CDT 03/05/2025 12:58 PM CDT Jesica Skelton MD SEND OUTS Final Re sult Performing Organization Address City/[facility]/ZIP Co de Phone Number [employer] [facility] [address] [place] [address], [place] [phone] [facility] [address] [place] [address] * TSH WITH REFLEX (03/05/2025 12:57 PM CDT) TSH W/REFLEX TO FT4 1.93 0.40 - 4.50 mIU/L [facility] Blood BLOOD SPECIMEN / Unknown 03/05/2025 12:57 PM CDT 03/05/2025 12:58 PM CDT Jesica Skelton MD CHEMISTRY Final Re sult Performing Organization Address [facility]/ZIP Co de Phone Number [employer] [facility] [address] [place] [phone], [facility] [address] [place] [address] * VITAMIN D 25 (DEFICIENCY) (03/05/2025 12:57 PM CDT) VITAMIN D,25-OH,TOTAL,IA 60 30 - 100 ng/mL [employer] brigid Blande Comment: Vitamin D Status 25-OH Vitamin D: Deficiency: <20 ng/mL Insufficiency: 20 - 29 ng/mL Optimal: > or = 30 ng/mL For 25-OH Vitamin D testing on patients on D2-supplementation and patients for whom quantitation of D2 and D3 fractions is required, the QuestAssureD(TM) 25-OH VIT D, (D2,D3), LC/MS/MS is recommended: order code 92669 (patients >2yrs). See Note 1 Note 1 For additional information, please refer to http://education.TellMi/faq/DRX793 (This link is being provided for informational/ educational purposes only.) Blood BLOOD SPECIMEN / Unknown 03/05/2025 12:57 PM CDT 03/05/2025 12:58 PM CDT Jesica Skelton MD SEND OUTS Final Re sult Performing Organization Address [facility] de Phone Number [employer] [address] [address], [facility] [address] * PTH,INTACT (03/05/2025 12:57 PM CDT) PARATHYROID HORMONE, INTACT 34 16 - 77 pg/mL [facility] Comment: Interpretive Guide Intact PTH Calcium ------- Normal Parathyroid Normal Normal Hypoparathyroidism Low or Low Normal Low Hyperparathyroidism Primary Normal or High High Secondary High Normal or Low Tertiary High High Non-Parathyroid Hypercalcemia Low or Low Normal High CALCIUM 9.1 8.6 - 10.4 mg/dL [facility] Blood BLOOD SPECIMEN / Unknown 03/05/2025 12:57 PM CDT 03/05/2025 12:58 PM CDT Jesica Skelton MD SEND OUTS Final Re sult Performing Organization Address [facility]/ZIP Co de Phone Number [employer] [address] [address], [place] [phone] [facility] [address] [place] [address] * (ABNORMAL) CBC AND DIFFERENTIAL (03/05/2025 12:54 PM CDT) [facility] WHITE BLOOD CELL COUNT 7.2 3.8 - 10.8 Thousand/u L [facility] RED BLOOD CELL COUNT 3.71(L) 3.80 - 5.10 Million/uL [facility] HEMOGLOBIN 11.2(L) 11.7 - 15.5 g/dL [facility] HEMATOCRIT 35.5 35.0 - 45.0 % [facility] MCV 95.7 80.0 - 100.0 fL [facility] MCH 30.2 27.0 - 33.0 pg [facility] MCHC 31.5(L) 32.0 - 36.0 g/dL [facility] Comment: For adults, a slight decrease in the calculated MCHC value (in the range of 30 to 32 g/dL) is most likely not clinically significant; however, it should be interpreted with caution in correlation with other red cell parameters and the patient's clinical condition. RDW 15.5(H) 11.0 - 15.0 % [facility] PLATELET COUNT 161 140 - 400 Thousand/u L [facility] MPV 10.8 7.5 - 12.5 fL [facility] ABSOLUTE NEUTROPHILS 5,220 1,500 - 7,800 cells/uL [facility] ABSOLUTE LYMPHOCYTES 677(L) 850 - 3,900 cells/uL [facility] ABSOLUTE MONOCYTES 900 200 - 950 cells/uL [facility] ABSOLUTE EOSINOPHILS 331 15 - 500 cells/uL [facility] ABSOLUTE BASOPHILS 72 0 - 200 cells/uL [facility] NEUTROPHILS 72.5 % [facility] LYMPHOCYTES 9.4 % [facility] MONOCYTES 12.5 % [facility] EOSINOPHILS 4.6 % [facility] BASOPHILS 1.0 % [facility] Blood BLOOD SPECIMEN / Unknown 03/05/2025 12:54 PM CDT 03/05/2025 12:55 PM CDT Gail Villaseñor CONTACT CLERK HEMATOLOGY Final Result [employer] [facility] [address] [place] [address], [facility] [address] [place] [address] * XR PELVIS 2 VIEWS (02/21/2025 4:27 PM CDT) Anatomical Region Laterality Modality Pelvis Digital Radiogra phy 02/21/2025 4:40 PM CDT Narrative 02/21/2025 4:40 PM CDT For Patients: As a result of the Cures Act, medical imaging exams and procedure reports are released immediately into your electronic medical record. You may view this report before your referring provider. If you have questions, please contact your health care provider. INDICATION: Pain. TECHNIQUE: Inlet and outlet pelvic views. COMPARISON: 02/21/2023 and 05/13/2023. FINDINGS: There is a right hip hemiarthroplasty that appears well seated and aligned. There are chronic fractures of the left superior and inferior pubic rami. There is a fracture of the right superior pubic ramus near the acetabulum that is likely acute and is new since 2022. There is also an old healed fracture of the right superior pubic ramus that appears healed. Impression : There is a fracture of the right superior pubic ramus near the acetabulum that is likely acute. Dictated by Delvis Blair MD @ 02/21/2025 4:40:11 PM (Electronically Signed) Procedure Note Delvis Blair MD - 02/21/2025 For Patients: As a result of the Cures Act, medical imagingexams and procedure reports are released immediately into your electronicmedical record. You may view this report before your referring provider.If you have questions, please contact your health care provider. INDICATION: Pain. TECHNIQUE: Inlet and outlet pelvic views. COMPARISON: 02/21/2023 and 05/13/2023. FINDINGS: There is a right hip hemiarthroplasty that appears well seated andaligned. There are chronic fractures of the left superior and inferiorpubic rami. There is a fracture of the right superior pubic ramus near theacetabulum that is likely acute and is new since 2022. There is also anold healed fracture of the right superior pubic ramus that appearshealed. Impression : There is a fracture of the right superior pubic ramus near the acetabulumthat is likely acute. Dictated by Delvis Blair MD @ 02/21/2025 4:40:11 PM (Electronically Signed) Foster Dominique MD GENERAL IMAGING Final R esult * CT HEAD BRAIN WO (02/21/2025 3:00 PM CDT) Anatomical Region Laterality Modality HEAD, BRAIN Computed Tomogra phy 02/21/2025 3:25 PM CDT Impressions 02/21/2025 3:25 PM CDT 1. No skull fracture or acute intracranial hemorrhage identified. Please note that all CT scans at this facility use dose modulation, iterative reconstruction, and/or weight-based dosing when appropriate to reduce radiation dose to as low as reasonably achievable. Dictated by Adrianne Velazco MD @ 02/21/2025 3:25:15 PM (Electronically Signed) Narrative 02/21/2025 3:25 PM CDT For Patients: As a result of the Century Cures Act, medical imaging exams and procedure reports are released immediately into your electronic medical record. You may view this report before your referring provider. If you have questions, please contact your health care provider. INDICATION: Head trauma TECHNIQUE: Noncontrast axial CT of the head. Coronal and sagittal reformats. Bone and soft tissue algorithms. COMPARISON: None. FINDINGS: Intact calvarium. No acute intracranial hemorrhage or abnormal extra-axial fluid collection. Mild generalized cerebral volume loss. Mild chronic microangiopathy changes. Preserved aguilera-white matter differentiation. Calcific intracranial atherosclerotic plaquing. Clear visualized paranasal sinuses and mastoid air cells. Bilateral lens implants. Procedure Note Adrianne Velazco DO - 02/21/2025 For Patients: As a result of the 21st Century Cures Act, medical imagingexams and procedure reports are released immediately into your electronicmedical record. You may view this report before your referring provider.If you have questions, please contact your health care provider. INDICATION: Head trauma TECHNIQUE: Noncontrast axial CT of the head. Coronal and sagittal reformats. Bone andsoft tissue algorithms. COMPARISON: None. FINDINGS: Intact calvarium. No acute intracranial hemorrhage or abnormal extra-axialfluid collection. Mild generalized cerebral volume loss. Mild chronicmicroangiopathy changes. Preserved aguilera-white matter differentiation.Calcific intracranial atherosclerotic plaquing. Clear visualized paranasalsinuses and mastoid air cells. Bilateral lens implants. IMPRESSION: 1. No skull fracture or acute intracranial hemorrhage identified. Please note that all CT scans at this facility use dose modulation,iterative reconstruction, and/or weight-based dosing when appropriate toreduce radiation dose to as low as reasonably achievable. Dictated by Adrianne Velazco MD @ 02/21/2025 3:25:15 PM (Electronically Signed) us Foster Dominique MD CT Final R esult * XR HIP 2 OR 3 VIEWS W PELVIS RIGHT (02/21/2025 2:56 PM CDT) Anatomical Region Laterality Modality HIPS, HIPR, Pelvis Digital Radio graphy 02/21/2025 3:23 PM CDT Addenda Addendum by Lenny No DO on 02/21/2025 3:40 PM CDT INDICATION: Trauma. TECHNIQUE: Right hip and pelvis radiographs, 3 views. COMPARISON: Left hip and pelvis radiographs 05/13/2023. FINDINGS: Status post total right hip arthroplasty. The hardware appears intact without evidence of hardware failure or periprosthetic fractures. Old healed left pubic rami fractures. Severe degeneration of the left hip joint. No diastasis of the pubic symphysis. Degeneration of the bilateral sacroiliac joints. IMPRESSION: Status post total right hip arthroplasty. No acute fractures or dislocation. Dictated by Lenny No MD @ 02/21/2025 3:23:38 PM ----- ADDENDUM ----- Addendum : Upon retrospective review, there is a new, recent displaced fracture of the right superior pubic ramus. No bony callus formation suggestive of normal interval healing process. Dictated by Lenny No MD @ Feb 21 2025 3:39PM (Electronically Signed) Impressions 02/21/2025 3:23 PM CDT Status post total right hip arthroplasty. No acute fractures or dislocation. Dictated by Lenny No MD @ 02/21/2025 3:23:38 PM (Electronically Signed) Narrative 02/21/2025 3:23 PM CDT For Patients: As a result of the Cures Act, medical imaging exams and procedure reports are released immediately into your electronic medical record. You may view this report before your referring provider. If you have questions, please contact your health care provider. INDICATION: Trauma. TECHNIQUE: Right hip and pelvis radiographs, 3 views. COMPARISON: Left hip and pelvis radiographs 05/13/2023. FINDINGS: Status post total right hip arthroplasty. The hardware appears intact without evidence of hardware failure or periprosthetic fractures. Old healed left pubic rami fractures. Severe degeneration of the left hip joint. No diastasis of the pubic symphysis. Degeneration of the bilateral sacroiliac joints. Procedure Note Lenny No, - 02/21/2025 For Patients: As a result of the Cures Act, medical imagingexams and procedure reports are released immediately into your electronicmedical record. You may view this report before your referring provider.If you have questions, please contact your health care provider. INDICATION: Trauma. TECHNIQUE: Right hip and pelvis radiographs, 3 views. COMPARISON: Left hip and pelvis radiographs 05/13/2023. FINDINGS: Status post total right hip arthroplasty. The hardware appears intactwithout evidence of hardware failure or periprosthetic fractures. Oldhealed left pubic rami fractures. Severe degeneration of the left hipjoint. No diastasis of the pubic symphysis. Degeneration of the bilateralsacroiliac joints. IMPRESSION: Status post total right hip arthroplasty. No acute fractures ordislocation. Dictated by Lenny No MD @ 02/21/2025 3:23:38 PM (Electronically Signed) Foster Dominique MD GENERAL IMAGING Edited Result - Final * XR DXA BONE DENSITY 2 SITES AXIAL (11/04/2024 10:07 AM MANAGER COMMERCIAL) Anatomical Region Laterality Modality Spine, HIPS, HIPL, HIPR Other Impressions 11/06/2024 8:13 AM MANAGER COMMERCIAL Osteopenia. RECOMMENDATIONS: The National Osteoporosis Foundation recommends pharmacologic treatment for patients with T-scores of -2.5 or less, patients with prior history of fragility fractures, or patients with 10-year probability of greater than 3% at hips or greater than 20% of suffering major osteoporotic fractures. Recommend continued optimization of calcium and vitamin D intake through dietary means and/or supplementation and regular exercise. Luke Leonardo M.D. Body/Diagnostic Radiologist [employer] [email or web address] / Narrative 11/06/2024 8:13 AM MANAGER COMMERCIAL For Patients: Results are automatically released to your [facility]) account once available, in compliance with federal regulations. This means that you may see your results before your provider has had a chance to review them. Please allow 2-3 business days for your provider to comment on the results. XR DXA Bone Mineral Density (BMD) EXAM LOCATION: [facility] [place] [address] PATIENT NAME: Savana Winston DATE OF : 1940 EXAM DATE: 11/04/2024 REQUESTING PROVIDER: Jesica Skelton MD GENDER AT : female HEIGHT: 5 feet 7 inches WEIGHT: 134 pounds MENOPAUSAL STATUS: Postmenopausal RACE/ETHNICITY: White RISK FACTORS: Height Loss (2 inches or more), History of Fragility Fracture (at a major site), and White Race CURRENT MEDICATION FOR BONE LOSS: NONE INDICATION: Post-Menopausal COMPARISON DATE(S): None DXA scans are compared to prior studies for a patient only when the two (or more) studies were performed on the same scanner. It is not possible to compare data generated on one scanner to data from another because there are not standards in DXA equipment. This applies even if the two scanners are made by the same charter coordinator. PROCEDURE: Dual-energy x-ray absorptiometry performed with routine technique. Reporting is completed in the form of a T-score. The T-score represents the standard deviation from peak bone mass based on young healthy adult. A Z-score is used for diagnosis in premenopausal women, and for men under the age of 50. FINDINGS: RESULT LUMBAR SPINE L1 - L4 BMD: 0.929 g/cm2 T-Score: - 1.1 Z-Score: + 1.7 RESULTS FEMUR Left femoral neck BMD: 0.621 g/cm2 T-Score: - 2.1 Z-Score: + 0.4 Left total hip BMD: 0.703 g/cm2 T-Score: - 2.0 Z-Score: + 0.3 WHO Criteria: Normal: T-score at or above -1 SD Osteopenia: T-score between -1.1 and -2.4 SD Osteoporosis: T-score at or below -2.5 SD LEFT: FRAX RISK CALCULATION (USED FOR OSTEOPENIA ONLY): 10-year probability of major osteoporotic fracture: 27%. 10-year probability of hip fracture: 18%. 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 POLST 03/11/2025 POLST 01/07/2024 2:08 PM POLST Healthcare Directive 01/07/2024 2:05 PM HC D 3.18.24 Healthcare Directive 07/10/2011 RESUSCI TATION STATUS/[facility], 07/06/11 * DNR (Latest Code Status on File) Date Activated Date Inactivated Comments 03/21/2025 1:11 PM * DNR Date Activated Date Inactivated Comments 03/09/2025 3:32 PM 03/13/2025 12:18 PM Question Answer Comments Code Status Discussion: Reviewed Preferences * DNR Date Activated Date Inactivated Comments 02/26/2025 9:38 PM 03/09/2025 12:23 PM * Full Code Date Activated Date Inactivated Comments 12/22/2013 10:45 PM 12/24/2013 5:04 PM Care Teams News Specialist Relationship Specialty Start [place] [address] [place] [address] PCP - General Family Practice 12/10/22 Carey Davidson NP Nurse Practitioner 12/25/13 Vick Pan MD [address] [facility] [address] [place] [address] Psychiatry 06/07/23 [place] [id number] [place] [address] 02/27/25
--- OUTSIDE RECORDS SUMMARY | 2025-04-20 16:44 | XMS_ITS | Clinical Summary ---
Author Organization [facility] Address [address] [place] [address] Care Team Providers Care Snowmaker Name Role Phone Jesica Skelton MD Primary Care Provider [phone] Source Comments You are receiving this document as you are listed as the primary care provider,follow-up provider, or the patient has been referred to you for consultation.This is in compliance with the Medicare and[facility] EHR Incentive Program,which states Providers who transition their patient to another setting of careor provider of care or refers their patient to another provider of care shouldprovide summary care record for each transition of care or referral. [facility] Allergies Active Allergy Reactions Criticality Noted Date Comments Amoxicillin Unknown 12/02/2023 Medications WELLBUTRIN SR 150 MG 12 hour release tablet Take by mouth. 4 Active ciprofloxacin (CIPRO) 500 MG tablet Take 1 Tablet (500 mg) by mouth two times a day. 3 Active furosemide (LASIX) 20 MG tablet Take 1 Tablet (20 mg) by mouth. 3 Active levoFLOXacin (LEVAQUIN) 250 MG tablet Take 1 Tablet (250 mg) by mouth daily. 3 Active LORazepam (ATIVAN) 0.5 MG tablet Take 1 Tablet (0.5 mg) by mouth every 6 hours as needed. 3 Active memantine (NAMENDA) 10 MG tablet Take 1 Tablet (10 mg) by mouth two times a day. 3 Active MORPHINE 100 MG/5ML concentrated solution SMARTSI.2 5-1 Milliliter(s ) By Mouth Every Hour PRN 3 Active morphine (MS IR) 15 MG tablet Take 0.5-1 Tablets (7.5-15 mg) by mouth every 4 hours as needed. 3 Active nitrofurantoin monohydrate macrocrystal (MACROBID) 100 MG capsule Take by mouth. 4 Active potassium chloride (K-DEMI) 20 MEQ packet Take 20 mEq by mouth daily. 3 Active potassium chloride (KLOR-CON M) 20 MEQ ER tablet Take 1 Tablet (20 mEq) by mouth as needed. 3 Active SENEXON-S 8.6-50 MG per tablet Take 2 Tablets by mouth two times a day. 3 Active topiramate (TOPAMAX) 50 MG tablet Take 1 Tablet (50 mg) by mouth daily. 3 Active Social History Tobacco Use Types Packs/Day Years Used Date Smoking Tobacco: Never Assessed Comments Unknown Sex and Gender Information Value Date Recorded Sex Assigned at Not on file Legal Sex Female 1:59 PM CDT Gender Identity Not on file Sexual Orientation Not on file Last Filed Vital Signs Vital Sign Reading Time Taken Comments Blood Pressure - - Pulse - - Temperature 36.4 C (97.6 F) 12/02/2023 3:24 PM MECHANICAL SHOVEL OPERATOR Respiratory Rate - - Oxygen Saturation - - Inhaled Oxygen Concentration - - Weight 58.4 kg (128 lb 12.8 oz) 12/02/2023 3:24 PM MECHANICAL SHOVEL OPERATOR Height 177.8 cm (5' 10) 12/02/2023 3:24 PM MECHANICAL SHOVEL OPERATOR Body Mass Index 18.48 12/02/2023 3:24 PM MECHANICAL SHOVEL OPERATOR Plan of Treatment Health Maintenance Due Date Last Done Comments Medicare Annual Wellness Visit 1940 Zoster/Shingles Vaccine (1 of 2) 1991 Dexa 2006 RSV Vaccine (1 - 1-dose 75+ series) 02/29/2016 DTaP/Tdap/Td Vaccine (2 - Tdap) 03/21/2022 03/21/2012, 08/29/2005, 08/29/2005 COVID-19 Vaccine ( season) 2024 12/06/2020, 11/08/2020 Influenza Vaccine (Season Ended) 2025 08/10/2022, 08/08/2021, 07/29/2020, Additional history exists Pneumococcal Vaccine 50+ Yrs Completed 04/2023, 12/02/2015, 08/16/2007 HepA Vaccine Aged Out No longer eligi ble based on patient's age to complete this topic HepB Vaccine Aged Out No longer eligi ble based on patient's age to complete this topic Hib Vaccine Aged Out No longer eligi ble based on patient's age to complete this topic MCV4 Vaccine Aged Out No longer eligi ble based on patient's age to complete this topic Meningococcal B Vaccine Aged Out No l onger eligible based on patient's age to complete this topic Insurance MEDICARE MANAGED CARE [facility] Advance Directives Documents on File Type Date Recorded Patient Hospice Director Expl anation Advance Directive/Living Will/Durable Power of Attny on file/POLST PN Care Teams Snowmaker Relationship Specialty [place] [address] [place] [address] PCP - General Family Practice 12/03/23
--- OUTSIDE RECORDS SUMMARY | 2025-04-20 16:44 | XMS_ITS | Clinical Summary ---
Author Organization [facility] Address [address] [place] [id number] Care Team Providers Care Administrative Nursing Supervisor Name Role Phone Jesica Skelton MD Primary Care Provider + Allergies Active Allergy Reactions Criticality Noted Date Comments Amoxicillin 05/13/2023 Medications buPROPion SR (WELLBUTRIN SR) 150 mg oral sustained release tablet 12 HR Take 2 tablets (300 mg) by mouth once daily. Active lamoTRIgine (LAMICTAL) 100 mg oral tablet Take 1.5 tablets (150 mg) by mouth once daily. Active memantine (NAMENDA) 10 mg oral Tab Take 1 tablet (10 mg) by mouth twice a day. Active raloxifene (EVISTA) 60 mg oral tablet Take 1 tablet (60 mg) by mouth once daily. Active topiramate (TOPAMAX) 100 mg oral tablet Take 1 tablet (100 mg) by mouth every evening. Active venlafaxine ER (EFFEXOR XR) 75 mg oral extended release capsule 24 HR Take 3 capsules (225 mg) by mouth every evening. Active vit C/E/Zn/coppr/alfred tein/zeaxan (PRESERVISION AREDS-2 ORAL) Take 1 tablet by mouth twice a day. Active calcium carbonate, 600 mg elemental calcium, 600 mg calcium (1,500 mg) oral tablet Take 1 tablet by mouth twice a day. Active Cholecalciferol , Vitamin D3, 50 mcg (2,000 unit) oral tablet Take 1 tablet (50 mcg) by mouth every evening. Active multivitamin (CERTAVITE) 18-400 mg-mcg oral tablet Take 1 tablet by mouth every evening. Active acetaminophen (TYLENOL) 500 mg oral tablet Take 1 tablet (500 mg) by mouth every 6 (six) hours as needed for fever or pain. 0 05/16/2023 Active melatonin 3 mg oral tablet Take 1 tablet (3 mg) by mouth at bedtime as needed (for sleep). 0 05/16/2023 Active methocarbamoL (ROBAXIN) 500 mg oral tablet Take 0.5 tablets (250 mg) by mouth every 6 (six) hours as needed (muscle pain). 0 05/16/2023 Active oxyCODONE, immediate release, (ROXICODONE) 5 mg oral tablet Take 0.5 tablets (2.5 mg) by mouth every 4 (four) hours as needed. 10 tablet 05/16/2023 Active polyethylene glycol (MIRALAX) 17 gram oral packet Take 17 g by mouth once daily. Mix each dose in 6 ounces of liquid as directed. 05/16/2023 Active senna-docusate (SENNA-S) 8.6-50 mg oral tablet Take 2 tablets by mouth twice a day. 0 05/16/2023 Active lidocaine 4% (SALONPAS) 4 % Top patch Apply to intact skin for upto 12 hrs within 24-hr period. Active vitamins A,C,E-zinc-benja er (OCUVITE PRESERVISION) 2,148 mcg-113 mg-45 mg-17.4mg oral Tab Take 1 tablet by mouth twice a day. 05/22/2023 Active Active Problems Problem Noted Date Diagnosed Date Moderate malnutrition 05/23/2023 Acute cystitis 05/14/2023 Left greater trochanter fracture 05/14/2023 Left pelvic and lower abdominal hematoma 023 Fall on same level 05/13/2023 Non-displaced left sacral fracture 05/13/2023 SDH 05/13/2023 Left superior and inferior pubic rami fractures 05/13/2023 Thrombocytopenia 05/13/2023 Anemia 05/13/2023 Resolved Problems Problem Noted Date Diagnosed Date Resolved Date Midline shift of brain due to hematoma 05/13/2023 05/14/2023 Social History Tobacco Use Types Packs/Day Years Used Date Smoking Tobacco: Never Smokeless Tobacco: Never Tobacco Cessation:Counseling Given: Not Answered Alcohol Use Standard Drinks/Week Comments Yes 0 (1 standard drink = 0.6 oz pur e alcohol) occasional use Comments Unknown Sex and Gender Information Value Date Recorded Sex Assigned at Not on file Legal Sex Female 9:31 AM CDT Gender Identity Not on file Sexual Orientation Not on file Last Filed Vital Signs Vital Sign Reading Time Taken Comments Blood Pressure 143/81 05/16/2023 12:09 PM CDT Pulse 90 05/16/2023 12:09 PM CDT Temperature 36.9 C (98.4 F) 05/16/2023 12:09 PM CDT Respiratory Rate 18 05/16/2023 12:09 PM CDT Oxygen Saturation 95% 05/16/2023 12:09 PM CDT Inhaled Oxygen Concentration - - Weight 63.5 kg (140 lb) 06/15/2023 10:46 AM CDT Height 177.8 cm (5' 10) 06/15/2023 10:46 AM CDT Body Mass Index 20.09 06/15/2023 10:46 AM CDT Plan of Treatment Health Maintenance Due Date Last Done Comments Colonoscopy 1940 Lipid Screening 1940 Depression Assessment (PHQ-2) 1942 Zoster Vaccine (1 of 2) 1991 RSV Vaccines (1 - 1-dose 75+ series) 02/29/2016 Osteoporosis Screening 08/27/2021 08/27/2019 Adult Tetanus Booster 03/21/2022 03/21/2012, 005 Medicare Wellness Visit 12/08/2023 12/08/2022 Yearly Review of HCD 05/12/2024 05/13/2023 COVID-19 Vaccine ( - season) 2024 Influenza Vaccine (Season Ended) 2025 08/10/2022, 08/08/2021, 07/29/2020, Additional history exists Pneumococcal 50+ Years Completed 3, 12/02/2015, 08/16/2007 Meningococcal B Vaccine Aged Out No l onger eligible based on patient's age to complete this topic Insurance [facility] BLUE MEDICARE PART A & B [facility] MEDICARE PART A & B Advance Directives For more information, please contact: [phone] * Full Code (Latest Code Status on File) Date Activated Date Inactivated Comments 05/16/2023 10:27 AM Question Answer Comments How was code status determined? Patient * Full Code Date Activated Date Inactivated Comments 05/13/2023 5:24 PM 05/16/2023 10:27 AM Question Answer Comments How was code status determined? Previous [facility] Care Teams Administrative Nursing Supervisor Relationship Specialty [place] [address] [place] [address] PCP - General Family Medicine 05/13/23
--- OUTSIDE RECORDS SUMMARY | 2025-04-20 16:44 | XMS_ITS | Referral Summary ---
Author Organization [facility] Address [address] [place] [id number] Care Team Providers Care Sugar Mill Worker Name Role Phone Jesica Skelton MD Primary [...] 06/15/2023 10:46 AM CDT Plan of Treatment Not on file Insurance [facility] MEDICARE PART A & B BC[employer] [place] MEDICARE PART A & [place] [address] [address] [place] [address] [place] [id number] Advance Directives For more information, please contact: [phone] * Full Code (Latest Code Status on File) Date Activated Date Inactivated Comments 05/16/2023 10:27 AM Question Answer Comments How was code status determined? Patient * Full Code Date Activated Date Inactivated Comments 05/13/2023 5:24 PM 05/16/2023 10:27 AM Question Answer Comments How was code status determined? Previous [facility] Care Teams Sugar Mill Worker Relationship Specialty [place] [address] [place] [address] PCP - General Family Medicine 05/13/23
--- OUTSIDE RECORDS SUMMARY | 2025-04-21 01:43 | XMS_ITS | Clinical Summary ---
Author Organization [employer] [facility] s & [facility] Address [facility] [place] [address] Care Team Providers Care Data Analyst Etl Developer Name Role Phone Stuart Vinson NP, Melanie Unavailable [phone] Jesica Skelton MD Primary Care Provider + Vick Pan MD Unavailable [facility] Care, Brandon Unavailable Allergies Active Allergy Reactions Criticality Noted [...] 20 mEq extended-rele ase tablet (part/cryst)I ndications:Ac [place] on chronic combined systolic and diastolic heart [...] mIU/L Recent encounter dx: 03/03/25: Appointment - [facility] 02/05/25: Appointment - [facility] 02/03/25: Support OP Encounter - [facility] 01/17/25: Support OP Encounter - [facility] 01/16/25: Appointment - [facility] Recent notes: 03/05/25: Progress Notes [...] very pleasant 84 year old female from [place], [place], with a history of bipolar I disorder, hypertension, and falls, who required multiple hospitalizations and ECT treatments until 2013. 11/10/24: Progress Notes by Manfred Mock MD ... [-] Bipolar disorder. 02/06/24: Progress Notes by Vick Pan MD ... [+] Ms. Savana Winston is a very pleasant 83 year old female from [place], [place], with a history of bipolar I [...] Today met with Savana and daughter Eve [phone] Patient has Advance Care Plan Documents (Health Care Directive, POLST): Yes Advance Care Plan Documents: POLST Form completed today Patient has identified Specific Treatment Preferences: Yes How have preferences been verified: verbal Specific Treatment Preferences: a.) Code Status: DNR/ Do Not Attempt Resuscitation - Allow a Natural b.) Goals of Treatment: ii. Selective Treatment: Use medical treatment, antibiotics, IV fluids and air sampling and monitoring as indicated. No intubation, advanced airway interventions, [...] Description 04/20/2025 3:00 PM CDT Ancillary Procedure [facility] [id number] [place] [phone] Arrived 04/20/2025 2:30 PM CDT Office Visit [address] [address] Frederic Hudson MD Fall (No er or xrays) 04/20/2025 8:15 AM CDT Home Care Visit [facility] [address] [place] [phone] Juan Carlos Ritchie FREEZER PERSON - HOME VISIT 04/20/2025 Travel 04/20/2025 Home Care Visit [facility] [address] [place] [phone] Isabelle Vasquez, RN CARE COORDINATION 04/20/2025 Nurse Triage [facility] [id number] [place] [phone] Jesica Skelton MD Back Injury 04/18/2025 4:30 PM CDT Home Care Visit [facility] [address] [place] [phone] Viki Manjarrez LPN JEWEL BEARING FACER - HOME VISIT 04/18/2025 Nurse Triage [facility] [address] [place] [address] Jesica Skelton MD Fall 04/16/2025 9:30 AM CDT Home Care Visit [facility] [address] [place] [phone] Viki Manjarrez LPN JEWEL BEARING FACER - HOME VISIT 04/16/2025 7:30 AM CDT Home Care Visit [facility] [address] [place] [address] JuanC arlos Ritchie FREEZER PERSON - HOME VISIT 04/14/2025 3:15 PM CDT Home Care Visit [facility] [address] [place] [phone] Lenora Gomez, PT PT - DISCIPLINE DISCHARGE 04/13/2025 7:15 AM CDT Home Care Visit [facility] [address] [place] [phone] Juan Carlos Ritchie FREEZER PERSON - HOME VISIT 04/13/2025 Telephone [facility] [address] [place] [address] Antionette Garcia, [facility] Late Cancel Appointment 04/09/2025 1:00 PM CDT Home Care Visit [facility] [address] [place] [phone] Viki Manjarrez LPN JEWEL BEARING FACER - HOME VISIT 04/09/2025 10:30 AM CDT Phone Office Visit [facility] [address] [facility] [address] [place] [address] Vick Pan MD Medication Management; Phone Visit ([place]) 04/09/2025 8:15 AM CDT Home Care Visit [facility] [address] [place] [phone] Juan Carlos Ritchie FREEZER PERSON - HOME VISIT 04/09/2025 Travel 04/07/2025 Telephone [facility] [address] [place] [address] Jesica Skelton MD Questions ([facility]) 04/06/2025 2:00 PM CDT Home Care Visit [facility] [address] [place] [phone] Lenora Gomez, PT PT - REASSESSMENT 04/06/2025 8:30 AM CDT Home Care Visit [facility] [address] [place] [phone] Juan Carlos Ritchie FREEZER PERSON - HOME VISIT 04/06/2025 Refill [facility] [address] [facility] [address] [place] [phone] Vick Pan MD Refill Request (Sertraline) 04/02/2025 8:45 AM CDT Home Care Visit [facility] [address] [place] [address] Juan Carlos Ritchie FREEZER PERSON - HOME VISIT 04/01/2025 1:00 PM CDT Home Care Visit [facility] [address] [place] [address] Amena Babcock RN SN - HOME VISIT 04/01/2025 Orders Only [facility] [address] [facility] [place] [address] Jesica Skelton MD Lab 03/30/2025 2:00 PM CDT Home Care Visit [facility] [address] [place] [phone] Lenora Gomez, PT PT - HOME VISIT 03/30/2025 8:45 AM CDT Home Care Visit [facility] [address] [place] [address] Juan Carlos Ritchie FREEZER PERSON - HOME VISIT 03/27/2025 Home Care Visit [facility] [address] [place] [address] Viki Manjarrez LPN CARE COORDINATION 03/26/2025 9:00 AM CDT Home Care Visit [facility] [address] [place] [address] Viki Manjarrez LPN JEWEL BEARING FACER - HOME VISIT 03/26/2025 8:30 AM CDT Home Care Visit [facility] [address] [place] [address] Juan Carlos Ritchie FREEZER PERSON - HOME VISIT 03/26/2025 Orders Only [facility] [address] [place] [address] Jesica Skelton MD Lab (Home care) 03/23/2025 9:00 AM CDT Phone Office Visit [facility] [address] [place] [address] Antionette Garcia, [facility] Individual Therapy; Trmt Plan 03/23/2025 8:00 AM CDT Home Care Visit [facility] [address] [place] [phone] Lenora Gomez, PT PT - HOME VISIT 03/23/2025 Travel 03/20/2025 2:00 PM CDT Home Care Visit [facility] [address] [place] [phone] Amena Babcock, RN SN - HOME VISIT 03/20/2025 9:30 AM CDT Home Care Visit [facility] [address] [place] [phone] Juan Carlos Ritchie FREEZER PERSON - HOME VISIT 03/20/2025 Travel 03/17/2025 2:00 PM CDT Home Care Visit [facility] [address] [place] [phone] Lenora Gomez, PT PT - HOME VISIT 03/17/2025 8:45 AM CDT Office Visit [facility] [phone] [place] [phone] Jesica Skelton MD Hospital F/U (/ST DOD 03-13-25/HEART FAILURE EXACERBATION/Evonne y, Shira Moseley MD, today patient says she feels droopy patient says she feels blah//); Pelvis Pain/problem (RT SIDE PAIN IN HIP AND FROM FRACTURED PELVIS ) 03/17/2025 Travel 03/17/2025 Patient Outreach [facility] [address] [place] [address] Brigitte Omer, RN Primary RN Care Management; Hospital F/U (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, DOD 03/13/2025) 03/14/2025 9:00 AM CDT Home Care Visit [facility] [address] [place] [address] Karlene Ron, GETACHEW SN - INITIAL ASSESSMENT 03/13/2025 1:00 PM CDT Home Care Visit [facility] [address] [place] [phone] Lenora Gomez, PT PT - OASIS RESUMPTION OF CARE 03/11/2025 Home Care Visit [facility] [address] [place] [phone] Isabelle Vasquez RN SN - OASIS TRANSFER 03/10/2025 Home Care Visit [facility] [address] [place] [address] Lenora Gomez, PT CARE TRANSITION NOTE 03/09/2025 12:34 PM CDT - 03/13/2025 10:12 AM CDT Hospital Encounter [facility] [address] [place] [address] Kyle Santos MD Kennedy Laliberte, Elizabeth Maureen, PA McCarthy, Shira Moseley MD Hospitalists, [facility] Dyspnea, unspecified type (Primary Dx); History of chronic CHF; Edema, unspecified type; 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 in hospital ) 03/09/2025 Travel 03/09/2025 Nurse Triage [place] [address] Jesica Skelton MD [facility] 03/05/2025 2:00 PM CDT Home Care Visit [facility] [address] [place] [address] Lenora Gomez, PT PT - HOME VISIT 03/05/2025 11:15 AM CDT Orders Only [facility] [id number] [place] [address] Lab 03/05/2025 10:50 AM CDT Office Visit [facility] [address] [place] [address] Gail Villaseñor NP Edema 03/05/2025 Travel 03/03/2025 10:00 AM CDT Home Care Visit [address] [phone] Lenora Gomez, PT PT - OASIS START OF CARE 03/03/2025 9:00 AM CDT Phone Office Visit [facility] [address] [place] [address] Antionette Garcia, [facility] Individual Therapy; Telehealth; Mental Health Intake 03/03/2025 Telephone [facility] [address] [place] [phone] Lenora Gomez, PT Home Care (Requesting ongoing PT homecare orders) 03/03/2025 Plan of Care Documentation [facility] [address] [place] [phone] 03/03/2025 Travel 03/02/2025 Home Care Visit [place] [id number] [place] [phone] Isabelle Vasquez, RN CARE COORDINATION 02/26/2025 2:00 PM CDT Office Visit [facility] [address] [place] [address] Jesica Skelton MD Follow Up ([facility] ER Fall) 02/26/2025 Telephone [facility] [address] [place] [address] Jesica Skelton MD Follow Up (Bone density treatment ) 02/26/2025 E-Consult [facility] [address] [facility] [address] [place] [address] Judy Dahl, 02/26/2025 Travel 02/21/2025 2:15 PM CDT - 02/21/2025 5:09 PM CDT Emergency [facility] [address] [place] [address] Foster Dominique MD Other closed fracture of right pubis, initial encounter (HC) (Primary Dx); Urinary incontinence, unspecified type Discharge Disposition: Home Self Care 02/21/2025 Travel 02/10/2025 Telephone [facility] [address] [place] [phone] Anna Rodriguez, [facility] Care Coordination 02/05/2025 12:00 PM CDT Telemedicine [facility] [address] [place] [phone] Vick Pan MD Medication Management; Telehealth ([place]) 02/05/2025 Travel 02/04/2025 Refill [facility] [address] [place] [phone] Vick Pan MD Refill Request (Sertraline) 01/28/2025 Telephone [facility] [address] [place] [phone] Vick Pan MD Prior Authorization (Wellbutrin XL 300 mg Extended-Release tablet BIMAL APPROVED October 30, 2024 to January 28, 2026) from Last 3 Months Immunizations Immunization Administration [...] on file 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 Gender Identity Not on file Sexual Orientation [...] 04/23/2025 4:00 AM CDT Home Care Visit [facility] [address] [place] [address] Amena Babcock RN 04/23/2025 7:45 AM CDT Home Care Visit [facility] [address] [place] [address] Juan Carlos Ritchie 04/27/2025 4:00 AM CDT Home Care Visit [facility] [address] [place] [phone] Juan Carlos Ritchie 04/30/2025 4:00 AM CDT Appointment [facility] [address] [place] [address] Amena Babcock RN 04/30/2025 7:00 AM CDT Home Care Visit [facility] [address] [place] [address] Juan Carlos Ritchie 05/07/2025 10:00 AM CDT Phone Office Visit [facility] [address] [place] [phone] Vick Pan MD [address] [place], [place] [phone] 05/12/2025 10:00 AM CDT Phone Office Visit [facility] [address] [place], [place] [address] Antionette Garcia, [facility] [address] [place] [address] Health Maintenance Due Date Last Done Comments [...] 2 SITES AXIAL Routine 11/04/2024 10:07 AM BODY SHOP SUPERVISOR Post-menopausal from Last 3 Months or Most Recently Relevant to Health Maintenance Results * (ABNORMAL) CREATININE (04/01/2025 1:28 PM CDT) Only the most recent of3 resultswithin the time period is included. eGFR 45(L) >90 mL/min/1.7 3m2 04/01/2025 2:49 PM CDT [facility] Comment:As of 2022, eG FR is calculated by the CKD-EPI creatinine equation without race adjustment. eGFR can be influenced by muscle mass, exercise, and diet. The reported eGFR is an estimation only and is only applicable if the renal function is stable. CREATININE 1.19(H) 0.50 - 0.90 mg/dL 04/01/2025 2:49 PM CDT [facility] Blood BLOOD SPECIMEN / Unknown Butterfly / Unknown 04/01/2025 1:28 PM CDT 04/01/2025 2:30 PM CDT Jesica Skelton MD CHEMISTRY Final Re sult [facility] [address] [place] [address] * (ABNORMAL) BASIC METABOLIC PANEL (03/17/2025 9:28 AM CDT) Only the most recent of5 resultswithin the time period is included. Pathologist [facility] GLUCOSE 82 65 - 99 mg/dL [facility] [...] 03/18/2025 5:14 AM CDT FASTING:NO FASTING: NO us Jesica Skelton MD CHEMISTRY Final Re sult [facility] [address] [place] [address], [employer] [facility] [address] [place] [address] * (ABNORMAL) PLATELET COUNT (03/13/2025 6:30 AM CDT) Only the most recent of2 resultswithin the time period is included. PLATELET COUNT 136(L) 140 - 440 thou/cu mm 03/13/2025 6:40 AM CDT [facility] MPV 10.3 6.5 - 11.0 fL 03/13/2025 6:40 AM CDT [facility] Blood BLOOD SPECIMEN / Unknown Venipuncture / Unknown 03/13/2025 6:30 AM CDT 03/13/2025 6:35 AM CDT us Shira Hughes MD HEMATOLOGY Final Res ult Performing Organization Address City/[facility]/ZIP Co de Phone Number [address] [address] * WHITE BLOOD COUNT (03/13/2025 6:30 AM CDT) WHITE BLOOD COUNT 5.3 4.5 - 11.0 thou/cu mm 03/13/2025 6:40 AM CDT [facility] NRBC 0.0 % 03/13/2025 6:40 AM CDT [facility] ABS NRBC 0.0 thou /cu mm 03/13/2025 6:40 AM CDT [facility] Blood BLOOD SPECIMEN / Unknown Venipuncture / Unknown 03/13/2025 6:30 AM CDT 03/13/2025 6:35 AM CDT us Shira Hughes MD HEMATOLOGY Final Res ult Performing Organization Address [facility]/ZIP Co de Phone Number [address] [address] * HEMOGLOBIN (03/13/2025 6:30 AM CDT) HEMOGLOBIN 12.8 12.0 - 16.0 g/dL 03/13/2025 6:40 AM CDT [facility] MCV 92 80 - 100 fL 03/13/2025 6:40 AM CDT [facility] Blood BLOOD SPECIMEN / Unknown Venipuncture / Unknown 03/13/2025 6:30 AM CDT 03/13/2025 6:35 AM CDT us Shira Hughes MD HEMATOLOGY Final Res ult Performing Organization Address [facility]/ZIP Co de Phone Number [address] [address] * SODIUM (03/13/2025 6:30 AM CDT) SODIUM 141 136 - 145 mmol/L 03/13/2025 6:54 AM CDT [facility] Blood BLOOD SPECIMEN / Unknown Venipuncture / Unknown 03/13/2025 6:30 AM CDT 03/13/2025 6:35 AM CDT us Shira Hughes MD CHEMISTRY Final Res ult Performing Organization Address [facility] Co de Phone Number [address] [address] * POTASSIUM (03/13/2025 6:30 AM CDT) Only the most recent of3 resultswithin the time period is included. POTASSIUM 3.7 3.5 - 5.1 mmol/L 03/13/2025 6:54 AM CDT [facility] Blood BLOOD SPECIMEN / Unknown Venipuncture / Unknown 03/13/2025 6:30 AM CDT 03/13/2025 6:35 AM CDT us Shira Hughes MD CHEMISTRY Final Res ult Performing Organization Address [facility] Co de Phone Number [address] [address] * MAGNESIUM (03/13/2025 6:30 AM CDT) Only the most recent of5 resultswithin the time period is included. Pathologist [facility] MAGNESIUM 2.3 1.6 - 2.4 mg/dL 03/13/2025 6:54 AM CDT [facility] Blood BLOOD SPECIMEN / Unknown Venipuncture / Unknown 03/13/2025 6:30 AM CDT 03/13/2025 6:35 AM CDT us Shira Hughes MD CHEMISTRY Final Res ult [facility] [address] [place] [address] * (ABNORMAL) CBC W PLT NO DIFF (03/11/2025 6:22 AM CDT) Only the most recent of4 resultswithin the time period is included. [facility] WHITE BLOOD COUNT 4.3(L) 4.5 - 11.0 thou/cu mm 03/11/2025 7:02 AM CDT [facility] RED BLOOD COUNT 3.94(L) 4.00 - 5.20 mil/cu mm 03/11/2025 7:02 AM CDT [facility] HEMOGLOBIN 11.9(L) 12.0 - 16.0 g/dL 03/11/2025 7:02 AM CDT [facility] HEMATOCRIT 36.5 33.0 - 51.0 % 03/11/2025 7:02 AM CDT [facility] MCV 93 80 - 100 fL 03/11/2025 7:02 AM CDT [facility] MCH 30.2 26.0 - 34.0 pg 03/11/2025 7:02 AM CDT [facility] MCHC 32.6 32.0 - 36.0 g/dL 03/11/2025 7:02 AM CDT [facility] RDW 17.5(H) 11.5 - 15.5 % 03/11/2025 7:02 AM CDT [facility] PLATELET COUNT 141 140 - 440 thou/cu mm 03/11/2025 7:02 AM CDT [facility] MPV 10.9 6.5 - 11.0 fL 03/11/2025 7:02 AM CDT [facility] NRBC 0.0 % 03/11/2025 7:02 AM CDT [facility] ABS NRBC 0.0 thou /cu mm 03/11/2025 7:02 AM CDT [facility] Blood BLOOD SPECIMEN / Unknown Butterfly / Unknown 03/11/2025 6:22 AM CDT 03/11/2025 6:59 AM CDT us Isabelle FAULKNER HEMATOLOG Y Final Result [address] [address] * PROCALCITONIN (03/11/2025 6:21 AM CDT) PROCALCITONIN 0.11 ng/ml 03/11/2025 7:41 AM CDT [facility] Blood BLOOD SPECIMEN / Unknown Butterfly / Unknown 03/11/2025 6:21 AM CDT 03/11/2025 6:59 AM CDT Narrative [facility] - 03/11/2025 7:41 AM CDT Procalcitonin [...] obtained. Isabelle FAULKNER SEND OUTS Final Result [address] [address] * URINALYSIS MICROSCOPIC (03/10/2025 5:19 PM CDT) RBC 0-2 0-2, None Seen /HPF 03/10/2025 5:39 PM CDT [facility] WBC 0-2 0-2, 3-5, None Seen /HPF 03/10/2025 5:39 PM CDT [facility] BACTERIA Few None Seen, Rare, Few Bacteria/H PF 03/10/2025 5:39 PM CDT [facility] EPITHELIAL CELLS Few None Seen, Few Epi/HPF 03/10/2025 5:39 PM CDT [facility] Urine URINE SPECIMEN / Unknown Non-Blood / Unknown 03/10/2025 5:19 PM CDT 03/10/2025 5:24 PM CDT Isabelle FAULKNER URINE Final Result [facility] [address] [place] [address] * (ABNORMAL) UA W/ SEDIMENT EXAM REFLEXED PER CRITERIA (03/10/2025 5:19 PM CDT) Only the most recent of2 resultswithin the time period is included. COLOR Yellow Yellow Color 03/10/2025 5:31 PM CDT [facility] CLARITY Clear Clear Clarity 03/10/2025 5:31 PM CDT [facility] SPECIFIC GRAVITY,URINE 1.015 1.010, 1.015, 1.020, 1.025 03/10/2025 5:31 PM CDT [facility] PH,URINE 6.0 6.0, 7.0, 8.0, 5.5, 6.5, 7.5, 8.5 03/10/2025 5:31 PM CDT [facility] UROBILINOGEN,Q UALITATIVE Normal Normal EU/dl 03/10/2025 5:31 PM CDT [facility] PROTEIN, URINE Negative Negative mg/dL 03/10/2025 5:31 PM CDT [facility] GLUCOSE, URINE Negative Negative mg/dL 03/10/2025 5:31 PM CDT [facility] KETONES,URINE Negative Negative mg/dL 03/10/2025 5:31 PM CDT [facility] BILIRUBIN,URIN E Negative Negative 03/10/2025 5:31 PM CDT [facility] OCCULT BLOOD,URINE Trace(A) Negative 03/10/2025 5:31 PM CDT [facility] NITRITE Negative Negative 03/10/2025 5:31 PM CDT [facility] LEUKOCYTE ESTERASE Negative Negative 03/10/2025 5:31 PM CDT [facility] Urine URINE SPECIMEN / Unknown Non-Blood / Unknown 03/10/2025 5:19 PM CDT 03/10/2025 5:24 PM CDT Isabelle Lake PA URINE Final Result [facility] [address] [place] [address] * XR CHEST 2 VIEWS PA AND [...] @ 03/10/2025 12:30:18 PM (Electronically Signed) Isabelle FAULKNER GENERAL I MAGING Final Result * (ABNORMAL) TROPONIN T (HS) ONE TIME (03/09/2025 2:43 PM CDT) TROPONIN T HS 43(H) 6-10 ng/L ng/L 03/09/2025 3:05 PM CDT [facility] Blood BLOOD SPECIMEN / Unknown Line/Port / Unknown 03/09/2025 2:43 PM CDT 03/09/2025 2:47 PM CDT Kyle Santos MD CHEMISTRY Final Res ult Performing Organization Address [facility] Co de Phone Number [address] [address] * EKG 12 LEAD UNIT PERFORMED (03/09/2025 12:55 PM CDT) Pathologist [facility] Interpretation Sinus rhythm with short NV with Premature supraventricular complexes Left ventricular hypertrophy with repolarization abnormality ( Sokolow-Micheal , Kasi product , Romhilt-Cason ) Abnormal ECG BEYOND NOW Ventricular Rate 68 BPM BEYOND NOW Atrial Rate 68 BPM BEYOND NOW P-R Interval 80 ms BEYOND NOW QRS Duration 112 ms BEYOND NOW QT 400 ms BEYOND NOW QTc 425 ms BEYOND NOW P [place] 3 degrees BEYOND NOW R [place] -7 degrees BEYOND NOW T [place] 147 degrees BEYOND NOW 03/09/2025 12:5 5 PM CDT 03/18/2025 4:44 AM CDT Kyle Santos MD EKG ORD Final Res ult Performing Organization Address City/[facility]/ZIP Co de Phone Number [place]YOND NOW [place], [place] * (ABNORMAL) TROPONIN T (HS) ACUTE W/2HR REFLEX (03/09/2025 12:54 PM CDT) [facility] TROPONIN T HS 45(H) 6-10 ng/L ng/L 03/09/2025 1:39 PM CDT [facility] Blood BLOOD SPECIMEN / Unknown IV Start / Unknown 03/09/2025 12:54 PM CDT 03/09/2025 12:59 PM CDT Narrative [facility] - 03/09/2025 1:39 PM CDT hs-cTnT [...] Kyle Santos MD CHEMISTRY Final Res ult [facility] [address] [place] [address] * (ABNORMAL) PRO-BNP (03/09/2025 12:54 PM CDT) PRO-BNP 9,732(H) <450 pg/mL 03/09/2025 1:41 PM CDT [facility] Blood BLOOD SPECIMEN / Unknown IV Start / Unknown 03/09/2025 12:54 PM CDT 03/09/2025 12:59 PM CDT [facility] - 03/09/2025 1:41 PM CDT The following [...] of 72% for acute congestive heart failure. us Kyle Santos MD SEND OUTS Final Res ult Performing Organization Address City/[facility]/ZIP Co de Phone Number [address] [address] * (ABNORMAL) HEPATIC FUNCTION PANEL (03/09/2025 12:54 PM CDT) ALBUMIN 3.6(L) 4.0 - 4.9 g/dL 03/09/2025 1:39 PM CDT [facility] PROTEIN,TOTAL 6.0 6.0 - 8.0 g/dL 03/09/2025 1:39 PM CDT [facility] BILIRUBIN,TOTAL 0.3 0.0 - 1.2 mg/dL 03/09/2025 1:39 PM CDT [facility] BILIRUBIN,DIRECT 0.1 0.0 - 0.2 mg/dL 03/09/2025 1:39 PM CDT [facility] BILIRUBIN,INDIRE CT 0.2 0.2 - 0.8 mg/dL 03/09/2025 1:39 PM CDT [facility] ALK PHOSPHATASE 87 35 - 104 IU/L 03/09/2025 1:39 PM CDT [facility] ALT (SGPT) 19 10 - 35 IU/L 03/09/2025 1:39 PM CDT [facility] AST (SGOT) 30 10 - 35 IU/L 03/09/2025 1:39 PM CDT [facility] Blood BLOOD SPECIMEN / Unknown IV Start / Unknown 03/09/2025 12:54 PM CDT 03/09/2025 12:59 PM CDT us Kyle Santos MD CHEMISTRY Final Res ult [facility] [address] [place] [address] * SCAN-CARDIAC STRIP (03/09/2025 12:00 AM CDT) [...] - 5.31 g/dL 03/10/2025 5:00 PM CDT [facility] ELP,ALPHA 1 0.38 0.19 - 0.42 g/dL 03/10/2025 5:00 PM CDT [facility] ELP,ALPHA 2 0.51 0.44 - 1.03 g/dL 03/10/2025 5:00 PM CDT [facility] ELP,GAMMA 0.74 0.59 - 1.46 g/dL 03/10/2025 5:00 PM CDT [facility] ELP,BETA 0.71 0.52 - 1.05 g/dL 03/10/2025 5:00 PM CDT [facility] ELP INTERP,SERUM Normal electrophoretic pattern. No monoclonal protein detected. Interpreted and electronically signed by: Claudia Cornejo MD 03/10/2025 5:00 PM CDT [facility] PROTEIN,TOTA L 5.9(L) 6.0 - 8.0 g/dL 03/10/2025 5:00 PM CDT [facility] Blood BLOOD SPECIMEN / Unknown [facility] / Unknown 03/05/2025 1:00 PM CDT 03/05/2025 1:06 PM CDT Jesica Skelton MD CHEMISTRY Final Re sult Performing Organization Address [facility]/ZIP Co de Phone Number [facility] [address] [place] [address], [place] * IMMUNOFIXATION,SERUM (03/05/2025 1:00 PM CDT) Pathologist [facility] IGG 794.57 610.30 - 1,616.00 mg/dL 03/10/2025 5:00 PM CDT [facility] IGA 239.10 84.50 - 499.00 mg/dL 03/10/2025 5:00 PM CDT [facility] IGM 51.37 35.00 - 242.00 mg/dL 03/10/2025 5:00 PM CDT [facility] IFIX INTERP,SERUM Immunofixation on serum shows no monoclonal protein detected and no free light chains detected. Interpreted and electronically signed by: Claudia Cornejo MD 03/10/2025 5:00 PM CDT [facility] Blood BLOOD SPECIMEN / Unknown [facility] / Unknown 03/05/2025 1:00 PM CDT 03/05/2025 1:06 PM CDT Jesica Skelton MD CHEMISTRY Final Re sult Performing Organization Address [facility] Co de Phone Number [facility] [address] [place] [address], [place] * CELIAC CASCADE PANEL (03/05/2025 12:57 PM CDT) Pathologist [facility] CELIAC DISEASE COMPREHENSIVE PANEL INTERPRETATION [facility] Comment: No serological evidence of celiac disease. tTG IgA may normalize in individuals with celiac disease who maintain a gluten-free diet. Consider HLA DQ2 and DQ8 testing to rule out celiac disease. Celiac disease is extremely rare in the absence of DQ2 or DQ8. TISSUE TRANSGLUTAMINASE AB, IGA <1.0 U/mL [facility] Comment: Value Interpretation ----- <15.0 Antibody not detected > or = 15.0 Antibody detected IMMUNOGLOBULIN A 242 70 - 320 mg/dL [facility] Blood BLOOD SPECIMEN / Unknown 03/05/2025 12:57 PM CDT 03/05/2025 12:58 PM CDT us Jesica Skelton MD SEND OUTS Final Re sult Performing Organization Address [facility]/ZIP Co de Phone Number [facility] [address] [place] [phone], [place] [phone] [facility] [address] [place] [address] * TSH WITH REFLEX (03/05/2025 12:57 PM CDT) TSH W/REFLEX TO FT4 1.93 0.40 - 4.50 mIU/L [facility] Blood BLOOD SPECIMEN / Unknown 03/05/2025 12:57 PM CDT 03/05/2025 12:58 PM CDT Jesica Skelton MD CHEMISTRY Final Re sult Performing Organization Address [facility] Co de Phone Number [facility] [address] [place] [address], [place] [phone] [facility] [address] [place] [address] * VITAMIN D 25 (DEFICIENCY) (03/05/2025 12:57 PM CDT) VITAMIN D,25-OH,TOTAL,IA 60 30 - 100 ng/mL [facility] Comment: Vitamin D Status 25-OH Vitamin D: Deficiency: <20 ng/mL Insufficiency: 20 - 29 ng/mL Optimal: > or = 30 ng/mL For 25-OH Vitamin D testing on patients on D2-supplementation and patients for whom quantitation of D2 and D3 fractions is required, the QuestAssure[facility](TM) 25-OH VIT D, (D2,D3), LC/MS/MS is recommended: order code 80167 (patients >2yrs). See Note 1 Note 1 For additional information, please refer to http://education.[employer]/faq/UPZ240 (This link is being provided for informational/ educational purposes only.) Blood BLOOD SPECIMEN / Unknown 03/05/2025 12:57 PM CDT 03/05/2025 12:58 PM CDT Jesica Skelton MD SEND OUTS Final Re sult Performing Organization Address City/[facility]/ZIP Co de Phone Number [facility] [address] [place] [address], [place] [phone] [facility] [address] [place] [address] * PTH,INTACT (03/05/2025 12:57 PM CDT) PARATHYROID HORMONE, INTACT 34 16 - 77 pg/mL [facility] Comment: Interpretive Guide Intact PTH Calcium ------- Normal Parathyroid Normal Normal Hypoparathyroidism Low or Low Normal Low Hyperparathyroidism Primary Normal or High High Secondary High Normal or Low Tertiary High High Non-Parathyroid Hypercalcemia Low or Low Normal High CALCIUM 9.1 8.6 - 10.4 mg/dL [facility] Blood BLOOD SPECIMEN / Unknown 03/05/2025 12:57 PM CDT 03/05/2025 12:58 PM CDT Jesica Skelton MD SEND OUTS Final Re sult Performing Organization Address [facility]/ZIP Co de Phone Number [facility] [address] [place] [address], [place] [phone] [facility] [address] [place] [address] * (ABNORMAL) CBC AND DIFFERENTIAL (03/05/2025 12:54 PM CDT) [facility] WHITE BLOOD CELL COUNT 7.2 3.8 - [...] CDT 03/05/2025 12:55 PM CDT Gail Villaseñor REHABILITATION TECHNICIAN HEMATOLOGY Final Result [facility] [address] [place] [address], [facility] [address] [place] [address] * XR PELVIS 2 VIEWS (02/21/2025 4:27 [...] cells. Bilateral lens implants. Procedure Note Adrianne Velazco, - 02/21/2025 For Patients: As a result [...] MD @ 02/21/2025 3:25:15 PM (Electronically Signed) Foster Dominique MD CT Final R esult [...] DENSITY 2 SITES AXIAL (11/04/2024 10:07 AM BODY SHOP SUPERVISOR) Anatomical Region Laterality Modality Spine, HIPS, HIPL, HIPR Other Impressions 11/06/2024 8:13 AM BODY SHOP SUPERVISOR Osteopenia. RECOMMENDATIONS: The National Osteoporosis Foundation recommends [...] Leonardo M.D. Body/Diagnostic Radiologist [email or web address] / Narrative 11/06/2024 8:13 AM BODY SHOP SUPERVISOR For Patients: Results are automatically released to your [employer] account once available, in compliance with federal regulations. This means that you may see your results before your provider has had a chance to review them. Please allow 2-3 business days for your provider to comment on the results. XR DXA Bone Mineral Density (BMD) EXAM LOCATION: [facility] [place] [address] PATIENT NAME: Savana Winston DATE OF : [...] two scanners are made by the same microcomputer support specialist. PROCEDURE: Dual-energy x-ray absorptiometry performed with routine [...] MEDICARE PART A HB ONLY [place] BLUE MR PB ONLY MEDICARE PART B HB ONLY [place] BLUE HB ONLY MEDICARE PPS [place] BLUE HB ONLY [id number] [facility] [place] [id number] [place] [id number] Advance Directives Documents on File Type Date Recorded Patient Counter Help Expl anation POLST 03/11/2025 POLST 01/07/2024 2:08 PM POLST Healthcare Directive 01/07/2024 2:05 PM HC D 3.18.24 Healthcare Directive 07/10/2011 RESUSCI TATION STATUS/[facility], 07/06/11 * DNR (Latest Code Status on [...] 10:45 PM 12/24/2013 5:04 PM Care Teams Data Analyst Etl Developer Relationship Specialty [place] [address] [place] [address] PCP - General Family Practice 12/10/22 Caery Davidson NP Nurse Practitioner 12/25/13 Vick Pan MD [address] [facility] [address] [place] [address] Psychiatry 06/07/23 [facility] [place] [address] [facility] [place] [address] 02/27/25
--- OUTSIDE RECORDS SUMMARY | 2025-04-21 01:44 | XMS_ITS | Clinical Summary ---
Author Organization [facility] Address [address] [place] [address] Care Team Providers Care Ent Nurse Name Role Phone Jesica Skelton MD Primary [...] patient's age to complete this topic Insurance [facility] [place] BLUE MEDICARE PART A & B [facility] [place] BLUE MEDICARE PART A & B Advance Directives For more information, please contact: [phone] * Full Code (Latest Code Status on File) Date Activated Date Inactivated Comments 05/16/2023 10:27 AM Question Answer Comments How was code status determined? Patient * Full Code Date Activated Date Inactivated Comments 05/13/2023 5:24 PM 05/16/2023 10:27 AM Question Answer Comments How was code status determined? Previous [facility] Care Teams Ent Nurse Relationship Specialty [place] [address] [place] [address] PCP - General Family Medicine 05/13/23
--- OUTSIDE RECORDS SUMMARY | 2025-04-21 01:44 | XMS_ITS | Clinical Summary ---
Author Organization [facility] Address [address] [place] [address] Care Team Providers Care Bottle Filler Name Role Phone Jesica Skelton MD Primary Care Provider [phone] Source Comments You are receiving this document as you are listed as the primary care provider,follow-up provider, or the patient has been referred to you for consultation.This is in compliance with the Medicare and[facility] Centercaid EHR Incentive Program,which states Providers who transition their patient to another setting of careor provider of care or refers their patient to another provider of care shouldprovide summary care record for each transition of care or referral. [facility] Allergies Active Allergy Reactions Criticality Noted Date [...] 36.4 C (97.6 F) 12/02/2023 3:24 PM ELECTRIC STOP INSTALLER Respiratory Rate - - Oxygen Saturation - - Inhaled Oxygen Concentration - - Weight 58.4 kg (128 lb 12.8 oz) 12/02/2023 3:24 PM ELECTRIC STOP INSTALLER Height 177.8 cm (5' 10) 12/02/2023 3:24 PM ELECTRIC STOP INSTALLER Body Mass Index 18.48 12/02/2023 3:24 PM ELECTRIC STOP INSTALLER Plan of Treatment Health Maintenance Due Date [...] complete this topic Insurance MEDICARE MANAGED CARE [facility] [place] [address] Advance Directives Documents on File Type Date Recorded Patient Nurse Specialist Expl anation Advance Directive/Living Will/Durable Power of Attny on file/POLST PN Care Teams Bottle Filler Relationship Specialty [place] [address] [place] [address] PCP - General Family Practice 12/03/23
--- OUTSIDE RECORDS SUMMARY | 2025-04-21 01:44 | XMS_ITS | Referral Summary ---
Author Organization [facility] Address [address] [place] [address] Care Team Providers Care Process Control Supervisor Name Role Phone Jesica Skelton MD [...] Plan of Treatment Not on file Insurance [facility] MEDICARE PART A & B [employer] [place] [id number] Advance Directives For more information, please contact: [phone] * Full Code (Latest Code Status on File) Date Activated Date Inactivated Comments 05/16/2023 10:27 AM Question Answer Comments How was code status determined? Patient * Full Code Date Activated Date Inactivated Comments 05/13/2023 5:24 PM 05/16/2023 10:27 AM Question Answer Comments How was code status determined? Previous [facility] Care Teams Process Control Supervisor Relationship Specialty Start [place] [address] [place] [address] PCP - General Family Medicine 05/13/23
== END 2025-04-18 16:20 | disposition home or self-care (01) ==
PROVIDERS: PCP Family Medicine; Visit Provider Emergency Medicine Emergency Medical Services
DX: S39.92XA Unspecified injury of lower back, initial encounter (principal); W18.39XA Other fall on same level, initial encounter; Y92.039 Unspecified place in apartment as the place of occurrence of the external cause
CPT/HCPCS: A0998

== ENCOUNTER 2025-05-20 12:09 | Outpatient (CLI) | payer MEDICARE, BC, SELFPAY | END 2025-05-20 12:10 | disposition home or self-care (01) | LOC: AMB 05-27 14:14 | PROVIDERS: PCP Family Medicine; Visit Provider Student in an Organized Health Care Education/Training Program | DX: S09.93XA Unspecified injury of face, initial encounter (principal); W19.XXXA Unspecified fall, initial encounter; Y92.121 Bathroom in nursing home as the place of occurrence of the external cause | CPT/HCPCS: A0998 ==

== ENCOUNTER 2025-07-19 18:34 | Outpatient (CLI) | payer MEDICARE, BC, SELFPAY | END 2025-07-19 18:35 | disposition home or self-care (01) | LOC: AMB 07-27 14:39 | PROVIDERS: PCP Family Medicine; Visit Provider Family Medicine | DX: R53.1 Weakness (principal) | CPT/HCPCS: A0998 ==

== ENCOUNTER 2025-08-16 08:35 | Outpatient (CLI) | payer MEDICARE, BC, SELFPAY | END 2025-08-16 08:36 | disposition home or self-care (01) | LOC: AMB 08-19 17:38 | PROVIDERS: PCP Family Medicine; Visit Provider Emergency Medicine | DX: R41.82 Altered mental status, unspecified (principal) | CPT/HCPCS: A0425; A0427 ==